=== PATIENT | male | born 1940 | race Caucasian/White ===

== ENCOUNTER 2017-05-14 08:22 | Inpatient (IN) | payer MEDICARE, OTHER ==
[~2017-05-14] VITALS: Ht 167.6 cm; Wt 94.9 kg
[2017-05-14] VITALS (9 sets, daily range): BP systolic 113–170; BP diastolic 57–96; PULSE 68–90; RESP 16–24; TEMP 97.4–98.7; O2SAT 96–99
[~2017-05-14 08:22] MED LIST: ASPI81TA82 PO; PLAV75TA PO
[2017-05-14] MEDS ORDERED: ASPI-516 CHEW (08:33)
[2017-05-14] MEDS ORDERED: ASPI-183 PO (08:40)
[2017-05-14] MEDS ORDERED: SODIUM CHLORIDE 0.9% FLUSH 10 ML FLUSH IVF PRN (09:00)
[2017-05-14] MEDS ORDERED: RESP: ALBUTEROL 2.5 MG/IPRATROPIUM 0.5 MG NEB (SCH) INH ONE (09:00)
--- NOTE | 2017-05-14 09:38 | RADRPT ---
EXAM DATE/TIME: 05/14/2017 09:06 [place] COMPARISON: CHEST SINGLE AP, September 26, 2014, 3:22. INDICATIONS : short of breath MEDICAL HISTORY : Chronic obstructive pulmonary disease. SURGICAL HISTORY : CABG. Coronary artery stent. ENCOUNTER: Initial ACUITY: 2 months PAIN SCORE: 0/10 LOCATION: Bilateral chest FINDINGS: A single portable frontal view the chest shows moderate cardiomegaly. No significant pulmonary vascul ar engorgement. Lungs are clear. Hiatal hernia noted. No effusions. Median sternotomy wires. CONCLUSION: Cardiomegaly. Clear lungs. Hiatal hernia. Burt Bojorquez Jr., MD on May 14, 2017 at 9:36 Board Certified Radiologist. This report was verified electronically.
[2017-05-14 09:58] LABS: AUTOMATED NEUTROPHIL # 5.3 TH/MM3 (1.8-7.7); BASOPHIL # 0.1 TH/MM3 (0-0.2); BASOPHIL % 1.1 % (0.0-2.0); EOSINOPHIL # 0.1 TH/MM3 (0-0.4); EOSINOPHIL % 1.3 % (0.0-4.0); LYMPH % 13.8 % (9.0-44.0); MEAN CELL VOLUME 56.9 FL (80.0-100.0); MEAN CORPUSCULAR HEMOGLOBIN 15.5 PG (27.0-34.0); MONO % 10.6 % (0.0-8.0); NEUT % 73.2 % (16.0-70.0); PLATELET COUNT 303 TH/MM3 (150-450); RED BLOOD COUNT 3.55 MIL/MM3 (4.50-5.90); RED CELL DISTRIBUTION WIDTH 20.4 % (11.6-17.2); WHITE BLOOD COUNT 7.3 TH/MM3 (4.0-11.0)
[2017-05-14 10:00] LABS: HEMO FLAGS DIFF FINAL; MEAN CORPUSCULAR HGB CONC 27.2 % (32.0-36.0)
[2017-05-14 10:02] LABS: HEMATOCRIT 20.2 % (39.0-51.0)
[2017-05-14] MEDS ORDERED: SODIUM CHLOR 0.9% 250 ML INJ 250 ML IV ONE (10:15)
[2017-05-14 10:24] LABS: ANION GAP 9 MEQ/L (5-15); AST (GOT) 20 U/L (15-37); BICARBONATE 24.1 MEQ/L (21.0-32.0); BLOOD UREA NITROGEN 22 MG/DL (7-18); CHLORIDE 108 MEQ/L (98-107); GLOMERULAR FILTRATION RATE 53 ML/MIN (>89); POTASSIUM 4.2 MEQ/L (3.5-5.1); SODIUM (NA) 141 MEQ/L (136-145)
[2017-05-14 10:29] LABS: ALKALINE PHOSPHATASE 68 U/L (45-117); ALT (GPT) 27 U/L (12-78); TOTAL BILIRUBIN ADULT 0.2 MG/DL (0.2-1.0)
--- NOTE | 2017-05-14 10:44 | PD ---
HPI Chief Complaint: Respiratory Distress Time Seen by Provider: 08:49 Travel History International Travel<30 days: No Contact w/Intl Traveler<30days: No Traveled to known affect area: No History of Present Illness HPI Patient is a 76-year-old male who comes in complaining of increasing shortness of breath. He says he has been shortness of breath. The past few weeks, but it has been getting worse. He does acknowledge that he has extensive cardiac history. He says he also has CHF and COPD. He denies any nausea or vomiting. He says he has noticed that his feet are swollen. He denies any chest pain. He has not had any abdominal pain or black stools. He says he only takes a full aspirin every day. PFSH Past Medical History Arthritis: Yes (generalized) Blood Disorders: No Anxiety: Yes Depression: Yes Heart Rhythm Problems: Yes Cancer: No Cardiac Catheterization: Yes Cardiovascular Problems: Yes High Cholesterol: Yes Chest Pain: Yes Congestive Heart Failure: Yes COPD: Yes Cerebrovascular Accident: Yes Diabetes: No Endocrine: No Gastrointestinal Disorders: Yes (irritable bowel dz) Genitourinary: Yes Headaches: Yes Hypertension: Yes Immune Disorder: No Musculoskeletal: Yes Neurologic: Yes Psychiatric: No Respiratory: Yes Myocardial Infarction: Yes Seizures: Yes Sleep Apnea: Yes Tetanus Vaccination: > 5 Years Influenza Vaccination: Yes Past Surgical History Abdominal Surgery: Yes (hernia repair) Cardiac Surgery: Yes (cabg 2002) Coronary Artery Bypass Graft: Yes Coronary Stent: Yes (X3) Eye Surgery: Yes (implants) Neurologic Surgery: Yes (R CEA) Oral Surgery: Yes (T&A) Other Surgery: Yes (CAROTIDS) Social History Alcohol Use: No (QUIT 40YRS AGO) Tobacco Use: No Substance Use: No Allergies-Medications (Allergen,Severity, Reaction): Coded Allergies: No Known Allergies (Verified Adverse Reaction, Unknown, 05/14/17) Reported Meds & Prescriptions Reported Meds & Active Scripts Active Reported Aspirin 325 Mg Tab 325 Mg PO DAILY Review of Systems Except as stated in HPI: all other systems reviewed are Neg General / Constitutional: No: Fever, Chills HENT: No: Headaches, Lightheadedness Cardiovascular: No: Chest Pain or Discomfort Respiratory: Positive: Cough, Shortness of Breath Gastrointestinal: No: Nausea, Vomiting Musculoskeletal: Positive: Edema, No: Myalgias Skin: No Rash, No Change in Pigmentation Neurologic: No: Weakness, Dizziness Physical Exam Narrative GENERAL: Awake and alert, in no acute distress. SKIN: Focused skin assessment warm/dry. HEAD: Atraumatic. Normocephalic. EYES: Pupils equal and round. No scleral icterus. ENT: Mucous membranes pink and moist. NECK: Trachea midline. No JVD. CARDIOVASCULAR: Regular rate and rhythm. No murmur appreciated. RESPIRATORY: No accessory muscle use. Clear to auscultation. Breath sounds equal bilaterally. GASTROINTESTINAL: Abdomen soft, non-tender, nondistended. Hepatic and splenic margins not palpable. MUSCULOSKELETAL: No obvious deformities. No clubbing. No cyanosis. Mild edema of bilateral ankles. NEUROLOGICAL: Awake and alert. No obvious cranial nerve deficits. Motor grossly within normal limits. Normal speech. PSYCHIATRIC: Appropriate mood and affect; insight and judgment normal. Data Data Last Documented VS Vital Signs Date Time Temp Pulse Resp B/P (MAP) Pulse Ox O2 Delivery O2 Flow Rate FiO2 05/14/17 10:30 68 20 113/57 (75) 99 Room Air 05/14/17 09:48 2.00 05/14/17 08:27 98.3 Orders Orders Complete Blood Count With Diff (05/14/17 08:49) Comprehensive Metabolic Panel (05/14/17 08:49) B-Type Natriuretic Peptide (05/14/17 08:49) Act Partial Throm Time (Ptt) (05/14/17 08:49) Prothrombin Time / Inr (Pt) (05/14/17 08:49) Troponin I (05/14/17 08:49) Iv Access Insert/Monitor (05/14/17 08:49) Electrocardiogram (05/14/17 08:49) Ecg Monitoring (05/14/17 08:49) Oximetry (05/14/17 08:49) Oxygen Administration (05/14/17 08:49) Chest, Single Ap (05/14/17 08:49) Sodium Chloride 0.9% Flush (Ns Flush) (05/14/17 09:00) Albuterol-Ipratropium Neb (Duoneb Neb) (05/14/17 09:00) Type And Screen (05/14/17 10:11) Red Blood Cells (Rbc) (05/14/17 10:11) Blood Product Administration (05/14/17 10:11) Sodium Chlor 0.9% 250 Ml Inj (Ns 250 Ml (05/14/17 10:15) Admit Order (Ed Use Only) (05/14/17 ) Labs Laboratory Tests Test 05/14/17 08:50 05/14/17 10:40 White Blood Count 7.3 TH/MM3 Red Blood Count 3.55 MIL/MM3 Hemoglobin 5.5 GM/DL Hematocrit 20.2 % Mean Corpuscular Volume 56.9 FL Mean Corpuscular Hemoglobin 15.5 PG Mean Corpuscular Hemoglobin Concent 27.2 % Red Cell Distribution Width 20.4 % Platelet Count 303 TH/MM3 Mean Platelet Volume 8.8 FL Neutrophils (%) (Auto) 73.2 % Lymphocytes (%) (Auto) 13.8 % Monocytes (%) (Auto) 10.6 % Eosinophils (%) (Auto) 1.3 % Basophils (%) (Auto) 1.1 % Neutrophils # (Auto) 5.3 TH/MM3 Lymphocytes # (Auto) 1.0 TH/MM3 Monocytes # (Auto) 0.8 TH/MM3 Eosinophils # (Auto) 0.1 TH/MM3 Basophils # (Auto) 0.1 TH/MM3 CBC Comment DIFF FINAL Differential Comment Blood Urea Nitrogen 22 MG/DL Creatinine 1.31 MG/DL Random Glucose 85 MG/DL Total Protein 6.8 GM/DL Albumin 3.2 GM/DL Calcium Level 8.3 MG/DL Alkaline Phosphatase 68 U/L Aspartate Amino Transf (AST/SGOT) 20 U/L Alanine Aminotransferase (ALT/SGPT) 27 U/L Total Bilirubin 0.2 MG/DL Sodium Level 141 MEQ/L Potassium Level 4.2 MEQ/L Chloride Level 108 MEQ/L Carbon Dioxide Level 24.1 MEQ/L Anion Gap 9 MEQ/L Estimat Glomerular Filtration Rate 53 ML/MIN Troponin I 0.13 NG/ML B-Type Natriuretic Peptide 815 PG/ML Prothrombin Time 10.9 SEC Prothromb Time International Ratio 1.0 RATIO Activated Partial Thromboplast Time 22.6 SEC [facility] Medical Decision Making Medical Screen Exam Complete: Yes Emergency Medical Condition: Yes Medical Record Reviewed: Yes Interpretation(s) ECG shows normal sinus rhythm at 71 there are T-wave inversions in 1 and aVL as well as leads V2 through V6. No ST elevation or depression. Differential Diagnosis CHF exacerbation versus COPD exacerbation versus pneumonia versus ACS Narrative Course Patient is a 76-year-old male comes in complaining of shortness of breath. Exam shows mild edema both ankles. IV established, labs sent. Labs show a hemoglobin of 5.5. Stool is negative for occult blood. Troponin is slightly elevated at 0.13. Type and screen sent, 2 units of PRBCs ordered for the patient. He was consented for blood transfusion. He does say that he had issues with anemia in the past, related to his heart surgery. He says he required a transfusion at that time. Patient will be admitted for further management. Diagnosis Primary Impression: Anemia Qualified Codes: D64.9 - Anemia, unspecified Additional Impression: CHF (congestive heart failure) Qualified Codes: I50.23 - Acute on chronic systolic (congestive) heart failure Admitting Information Admitting Physician Requests: Admit Minna Orourke MD May 14, 2017 10:44
[2017-05-14 11:17] LABS: APTT (PATIENT) 22.6 SEC (24.3-30.1); PROTHROMBIN TIME - PATIENT 10.9 SEC (9.8-11.6)
--- NOTE | 2017-05-14 11:31 | HHI.HP ---
HPI Service Family Medicine Primary Care Physician No Primary Care Physician Admission Diagnosis Anemia, CHF Diagnoses: International Travel<30 Days: No Contact w/Intl Traveler<30days: No Known Affected Area: No History of Present Illness Patient is a 76-year-old male with extensive cardiac history status post CABG and stent placements x3 presented to the ED with complaints of progressively worsening shortness of breath on exertion and fatigue. Patient states that shortness of breath on exertion has been occurring during the past year but has worsen in the past 2 days to the point where he is not able to walk short distances without stopping to catch his breath. Patient states he has bandlike chest pain across the rib cage radiating to the back. Describes back pain as stabbing quality. Of note patient states that this chest pain is similar to pain he experienced before he had stents placed. Denies radiation of pain into his left jaw or left arm. Patient also reports swelling in his lower extremities for the past 5 days. Denies weight loss, dizziness, vision changes, abdominal pain, nausea, vomiting, blood in his stool. Pt takes asa 325mg daily. Of note patient states last colonoscopy was 13 years ago and it was normal. He also stated that 13 years ago he was diagnosed with anemia (hgb 7.1) and required blood transfusion. The source of the bleeding was not identified. (Violette Gibbs MD, R1) Review of Systems Constitutional: COMPLAINS OF: Fatigue, DENIES: Fever, Weight loss, Chills, Dizziness Respiratory: COMPLAINS OF: Shortness of breath (on exertion), DENIES: Cough Cardiovascular: COMPLAINS OF: Chest pain (band-like) Gastrointestinal: DENIES: Black stools, Bloody stools, Nausea, Vomiting Genitourinary: COMPLAINS OF: Nocturia Musculoskeletal: COMPLAINS OF: Back pain (stabbing back pain) Integumentary: DENIES: Rash Neurologic: DENIES: Headache, Localized weakness, Seizures (Violette Gibbs MD , R1) Past Family Social History Past Medical History Anemia (hgb 7.1) requiring blood transfusion s/p CABG and stent placement x3, 13 yrs ago CHF COPD- does not use home O2 Past Surgical History Carotic endarterectomy 12 y ago lens implants (Violette Gibbs MD, R1) Allergies: Coded Allergies: No Known Allergies (Verified Allergy, Unknown, 05/14/17) Family History Mother-- at 81 yo due to stroke Father--colon cancer at 79 yo Brother--cardiac disease S/P open heart surgery 2 Social History Patient lives alone stopped working in August 2016 Sober the past 52 years Quit smoking 50 years ago Denies illicit drug use (Violette Gibbs MD, R1) Physical Exam Vital Signs Vital Signs Date Time Temp Pulse Resp B/P (MAP) Pulse Ox O2 Delivery O2 Flow Rate FiO2 05/14/17 10:30 68 20 113/57 (75) 99 Room Air 05/14/17 09:48 99 Nasal Cannula 2.00 05/14/17 08:37 90 24 134/60 (84) 99 Nasal Cannula 2.00 05/14/17 08:33 16 99 Nasal Cannula 2.00 05/14/17 08:27 98.3 84 16 170/96 (120) 99 Physical Exam GENERAL: This is a well-nourished, well-developed patient, in no apparent distress. SKIN: No rashes, ecchymoses or lesions. Cool and dry. HEAD: Atraumatic. Normocephalic. No temporal or scalp tenderness. EYES: Pupils equal round and reactive. Extraocular motions intact. No scleral icterus. No injection or drainage. ENT: Nose without bleeding, purulent drainage or septal hematoma. Throat without erythema, tonsillar hypertrophy or exudate. Uvula midline. Airway patent. NECK: Trachea midline. No lymphadenopathy. Supple, nontender, no meningeal signs. Pulsating area on right side of neck. CARDIOVASCULAR: Normal S1-S2 . Flow murmur heard on auscultation at left upper sternal border .Regular rate and rhythm without, gallops, or rubs. RESPIRATORY: Rales heard at lower lung bases BL. GASTROINTESTINAL: Abdomen soft, non-tender, distended. No hepato-splenomegaly, or palpable masses. No guarding. MUSCULOSKELETAL: Extremities without clubbing, cyanosis, or edema. No joint tenderness, effusion, or edema noted. No calf tenderness. Negative Homans sign bilaterally. NEUROLOGICAL: Awake and alert. Cranial nerves II through XII intact. Motor and sensory grossly within normal limits. Five out of 5 muscle strength in all muscle groups. Normal speech. Laboratory Laboratory Tests Test 05/14/17 08:50 05/14/17 10:40 White Blood Count 7.3 Red Blood Count 3.55 Hemoglobin 5.5 Hematocrit 20.2 Mean Corpuscular Volume 56.9 Mean Corpuscular Hemoglobin 15.5 Mean Corpuscular Hemoglobin Concent 27.2 Red Cell Distribution Width 20.4 Platelet Count 303 Mean Platelet Volume 8.8 Neutrophils (%) (Auto) 73.2 Lymphocytes (%) (Auto) 13.8 Monocytes (%) (Auto) 10.6 Eosinophils (%) (Auto) 1.3 Basophils (%) (Auto) 1.1 Neutrophils # (Auto) 5.3 Lymphocytes # (Auto) 1.0 Monocytes # (Auto) 0.8 Eosinophils # (Auto) 0.1 Basophils # (Auto) 0.1 CBC Comment DIFF FINAL Differential Comment Blood Urea Nitrogen 22 Creatinine 1.31 Random Glucose 85 Total Protein 6.8 Albumin 3.2 Calcium Level 8.3 Alkaline Phosphatase 68 Aspartate Amino Transf (AST/SGOT) 20 Alanine Aminotransferase (ALT/SGPT) 27 Total Bilirubin 0.2 Sodium Level 141 Potassium Level 4.2 Chloride Level 108 Carbon Dioxide Level 24.1 Anion Gap 9 Estimat Glomerular Filtration Rate 53 Troponin I 0.13 B-Type Natriuretic Peptide 815 Prothrombin Time 10.9 Prothromb Time International Ratio 1.0 Activated Partial Thromboplast Time 22.6 (Violette Gibbs MD, R1) Result Diagram: 05/14/17 0850 05/14/17 0850 Imaging Last Impressions Neck Ultrasound 05/14/17 1346 Signed Impressions: Service Date/Time: April 14:05 - CONCLUSION: 1. Palpable abnormality corresponds to prominent venous structures at the junction of the internal and subclavian veins in the right neck. 2. No mass lesions. Bandar Smith MD Chest X-Ray 05/14/17 0849 Signed Impressions: Service Date/Time: April 09:06 - CONCLUSION: Cardiomegaly. Clear lungs. Hiatal hernia. Burt Bojorquez Jr., MD Abdomen Ultrasound 05/14/17 0000 Signed Impressions: Service Date/Time: April 13:48 - CONCLUSION: 1. 6 x 8 mm nonobstructing stone in the lower pole collecting system of the right kidney. 2. Simple cortical cyst laterally in the midpole of the left kidney. 3. Pancreas is partially obscured by overlying bowel gas. Visualized portions are sonographically intact. 4. Otherwise negative. Bandar Smith MD (Violette Gibbs MD, R1) Caprini VTE Risk Assessment Caprini VTE Risk Assessment: Mod/High Risk (score >= 2) Caprini Risk Assessment Model Point Value = 1 Point Value = 2 Point Value = 3 Point Value = 5 Age 41-60 Minor surgery BMI > 25 kg/m2 Swollen legs Varicose veins or History of unexplained or recurrent spontaneous Oral contraceptives or hormone replacement Sepsis (< 1 month) Serious lung disease, including pneumonia (< 1 month) Abnormal pulmonary function Acute myocardial infarction Congestive heart failure (< 1 month) History of inflammatory bowel disease Medical patient at bed rest Age 61-74 Arthroscopic surgery Major open surgery (> 45 min) Laparoscopic surgery (> 45 min) Malignancy Confined to bed (> 72 hours) Immobilizing plaster cast Central venous access Age >= 75 History of VTE Family history of VTE Factor V Leiden Prothrombin [id number] Lupus anticoagulant Anticardiolipin antibodies Elevated serum homocysteine Heparin-induced thrombocytopenia Other congenital or acquired thrombophilia Stroke (< 1 month) Elective arthroplasty Hip, pelvis, or leg fracture Acute spinal cord injury (< 1 month) Prophylaxis Regimen Total Risk Factor Score Risk Level Prophylaxis Regimen 0-1 Low Early ambulation 2 Moderate Order ONE of the following: *Sequential Compression Device (SCD) *Heparin 5000 units SQ BID 3-4 Higher Order ONE of the following medications: *Heparin 5000 units SQ TID *Enoxaparin/Lovenox 40 mg SQ daily (WT < 150 kg, CrCl > 30 mL/min) *Enoxaparin/Lovenox 30 mg SQ daily (WT < 150 kg, CrCl > 10-29 mL/min) *Enoxaparin/Lovenox 30 mg SQ BID (WT < 150 kg, CrCl > 30 mL/min) AND/OR *Sequential Compression Device (SCD) 5 or more Highest Order ONE of the following medications: *Heparin 5000 units SQ TID (Preferred with Epidurals) *Enoxaparin/Lovenox 40 mg SQ daily (WT < 150 kg, CrCl > 30 mL/min) *Enoxaparin/Lovenox 30 mg SQ daily (WT < 150 kg, CrCl > 10-29 mL/min) *Enoxaparin/Lovenox 30 mg SQ BID (WT < 150 kg, CrCl > 30 mL/min) AND *Sequential Compression Device (SCD) (Violette Gibbs MD, R1) Assessment and Plan Assessment and Plan 76 yo M with extensive cardiac hx s/p CABG and stent placement admitted for w/u of symptomatic anemia. Code Status Full code Discussed Condition With sdw Dr. Murguia and Dr. Webb (Violette Gibbs MD, R1) Attending Attestation THIS CASE WAS DISCUSSED WITH THE RESIDENT PHYSICIANS. I HAVE REVIEWED THE RECORD AND AGREE WITH THE ABOVE NOTE AND PLAN OF CARE WAS DISCUSSED. I HAVE AUTHORIZED THE ORDER FOR ADMISSION TO AN IN-PATIENT STATUS. I was present for the entire history and physical and agree with the above assessment and plan. At this time it appears the EKG changes and symptoms are cardiac in nature but likely secondary to the severe anemia. (Talisha Murguia MD) Problem List: (1) Symptomatic anemia ICD Codes: D64.9 - Anemia, unspecified Status: Acute Plan: -Flow murmur heard on cardiac exam. -H&H on admission found to 5.5/20.2 -2 units of PRBC ordered for transfusion -Monitor H&H posttransfusion -Follow-up a.m. labs -GI consulted, recommendations appreciated (2) CAD (coronary artery disease) ICD Codes: I25.10 - Atherosclerotic heart disease of [place] coronary artery without angina pectoris Status: Chronic Plan: -EKG on admission showed: inverted t-waves, in lateral lead suggestive of ischemia and ST depression in leads V4-V6, these changes differ from previous EKG done in 09/2014 - CXR showed : cardiomegaly, clear lung and hiatal hernia -f/u echo, neck u/s for Right pulsatile neck veins?, abdominal u/s for abdominal distension, d-dimer, EKG -f/u cardiac cardiac enzymes and troponins -c/w asa -morphine prn for chest pain -monitor vs -patient not placed on beta-blockers due to hypotension. Not placed on heparin due to concern for bleeding. -case discussed with cardiology and consult not necessary at this time (3) Nutrition, metabolism, and development symptoms ICD Codes: R63.8 - Other symptoms and signs concerning food and fluid intake Plan: Fluids: not indicated at this time Electrolytes: WNL, replete as needed Nutrition: NPO after midnight DVT ppx: SCDs (Violette Gibbs MD, R1) Physician Certification 2 Midnight Certification Type: Admission for Inpatient Services Order for Inpatient Services The services are ordered in accordance with Medicare regulations or non- Medicare payer requirements, as applicable. In the case of services not specified as inpatient-only, they are appropriately provided as inpatient services in accordance with the 2-midnight benchmark. Estimated LOS (days): 3 days is the estimated time the patient will need to remain in the hospital, assuming treatment plan goals are met and no additional complications. Post-Hospital Plan: Not yet determined (Violette Gibbs MD, R1) Violette Gibbs MD, R1 May 14, 2017 11:31 Talisha Murguia MD May 15, 2017 08:21
[2017-05-14] MEDS ORDERED: MORPHINE SULFATE 4 MG/ML INJ IV PUSH PRN (12:30)
[2017-05-14] MEDS ORDERED: MAGNESIUM HYDROXIDE SUSP 30 ML CUP PO PRN (12:30)
[2017-05-14] MEDS ORDERED: ONDANSETRON HCL 4 MG/2 ML VIAL IVP PRN (12:30)
[2017-05-14] MEDS ORDERED: BISACODYL 10 MG SUPP RECTAL PRN (12:30)
[2017-05-14] MEDS ORDERED: LACTULOSE SYRUP 20 GM/30 ML CUP PO PRN (12:30)
[2017-05-14] MEDS ORDERED: SODIUM CHLORIDE 0.9% FLUSH 10 ML FLUSH IV FLUSH PRN (12:30)
[2017-05-14] MEDS ORDERED: NALOXONE HCL 0.4 MG/ML AMP IV PUSH PRN (12:30)
[2017-05-14] MEDS ORDERED: ACETAMINOPHEN 325 MG TAB PO PRN (12:30)
[2017-05-14] MEDS ORDERED: SENNOSIDES 8.6 MG TAB PO PRN (12:30)
--- NOTE | 2017-05-14 14:33 | PD.CONS ---
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 GI has been consulted for anemia, hgb 5.5 on admission. Denies black tarry stool, red blood in stool, n/v, abd pain, unintended weight loss. Takes daily ASA. No other NSAIDs. Not on blood thinners. 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 He had EGD and colonoscopy 13 y ago in [facility] for bleeding but says no source found. He said about 11y ago the ND told him he was anemic but did not determine source. 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 "I hold the record for years of sobriety in [facility]." (Evelyn De La O) PFSH Past Medical History CHF COPD anemia Marinelli's Past Surgical History CABG 13 y ago stent placement- 2014 hernia repair abdomen T&A Carotic endarterectomy 12 y ago lens implants (Evelyn De La O) Coded Allergies: No Known Allergies (Verified Allergy, Unknown, 05/14/17) Family History ?colon ca - father CVD CVA Social History no ETOH - quit 52 y ago no tobacco- quit 50 y ago no illicit drug use (Evelyn De La O) Review of Systems Constitutional: COMPLAINS OF: Dizziness Eyes: DENIES: Blurred vision Ears, nose, mouth, throat: DENIES: Hearing loss Respiratory: DENIES: Hemoptysis Cardiovascular: DENIES: Palpitations Gastrointestinal: DENIES: Abdominal pain, Black stools, Bloody stools, Constipation, Diarrhea, Nausea, Vomiting, Hematemesis Musculoskeletal: DENIES: Joint Swelling Integumentary: DENIES: Jaundice Hematologic/lymphatic: DENIES: Bruising Neurologic: DENIES: Headache Psychiatric: DENIES: Confusion (Evelyn De La O) GI Exam Vitals I&O Vital Signs Date Time Temp Pulse Resp B/P (MAP) Pulse Ox O2 Delivery O2 Flow Rate FiO2 05/14/17 13:41 05/14/17 13:02 98.7 78 18 136/70 99 05/14/17 12:42 98.2 72 18 127/61 98 05/14/17 12:33 69 20 127/61 (83) Room Air 05/14/17 10:30 68 20 113/57 (75) 99 Room Air 05/14/17 09:48 99 Nasal Cannula 2.00 05/14/17 08:37 90 24 134/60 (84) 99 Nasal Cannula 2.00 05/14/17 08:33 16 99 Nasal Cannula 2.00 05/14/17 08:27 98.3 84 16 170/96 (120) 99 I/O 05/13/17 05/13/17 05/13/17 05/14/17 05/14/17 05/14/17 07:00 15:00 23:00 07:00 15:00 23:00 Intake Total 250 ml Balance 250 ml Intake Blood Product IV Normal Saline Flush 250 ml Imaging Last Impressions Chest X-Ray 05/14/17 0849 Signed Impressions: Service Date/Time: April 09:06 - CONCLUSION: Cardiomegaly. Clear lungs. Hiatal hernia. Burt Bojorquez Jr., MD Laboratory Test 05/14/17 08:50 05/14/17 10:40 05/14/17 12:25 White Blood Count 7.3 TH/MM3 Red Blood Count 3.55 MIL/MM3 Hemoglobin 5.5 GM/DL Hematocrit 20.2 % Mean Corpuscular Volume 56.9 FL Mean Corpuscular Hemoglobin 15.5 PG Mean Corpuscular Hemoglobin Concent 27.2 % Red Cell Distribution Width 20.4 % Platelet Count 303 TH/MM3 Mean Platelet Volume 8.8 FL Neutrophils (%) (Auto) 73.2 % Lymphocytes (%) (Auto) 13.8 % Monocytes (%) (Auto) 10.6 % Eosinophils (%) (Auto) 1.3 % Basophils (%) (Auto) 1.1 % Neutrophils # (Auto) 5.3 TH/MM3 Lymphocytes # (Auto) 1.0 TH/MM3 Monocytes # (Auto) 0.8 TH/MM3 Eosinophils # (Auto) 0.1 TH/MM3 Basophils # (Auto) 0.1 TH/MM3 CBC Comment DIFF FINAL Differential Comment Blood Urea Nitrogen 22 MG/DL Creatinine 1.31 MG/DL Random Glucose 85 MG/DL Total Protein 6.8 GM/DL Albumin 3.2 GM/DL Calcium Level 8.3 MG/DL Alkaline Phosphatase 68 U/L Aspartate Amino Transf (AST/SGOT) 20 U/L Alanine Aminotransferase (ALT/SGPT) 27 U/L Total Bilirubin 0.2 MG/DL Sodium Level 141 MEQ/L Potassium Level 4.2 MEQ/L Chloride Level 108 MEQ/L Carbon Dioxide Level 24.1 MEQ/L Anion Gap 9 MEQ/L Estimat Glomerular Filtration Rate 53 ML/MIN Troponin I 0.13 NG/ML 0.13 NG/ML B-Type Natriuretic Peptide 815 PG/ML Prothrombin Time 10.9 SEC Prothromb Time International Ratio 1.0 RATIO Activated Partial Thromboplast Time 22.6 SEC D-Dimer Quantitative (PE/DVT) 0.48 MG/L FEU Total Creatine Kinase 41 U/L Physical Examination HEENT: PERRL; normocephalic; atraumatic; no jaundice. CHEST: CTA CARDIAC: RRR + murmur ABDOMEN: Soft, protuberant, nontender; no hepatosplenomegaly; bowel sounds are present in all four quadrants. EXTREMITIES: No clubbing, cyanosis, +1 pitting edema SKIN: Normal; no rash; no jaundice. [employer]: No focal deficits; alert and oriented times three. (Evelyn De La O) Assessment and Plan Plan ASSESSMENT - anemia - hgb 5.5 on admission, microcytic hypochromic. stool occult neg. no signs GI bleeding. 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 Colonoscopy 12 y ago in [facility] as work up for anemia and no bleeding found. will need EGD/colonoscopy, poss capsule endoscopy cleared by cardiology - elev troponins, CHF, COPD - cardiology consulted PLAN - EGD and colonoscopy - obtain consent - clears - NPO after midnight - GoLYtely - may need capsule endoscopy - monitor labs - transfuse as necessary - supportive care THis pt seen by myself and Dr Das and this note is written on his behalf (Evelyn De La O) Physician Comments Patient seen and examined Agree with above Continue with current supportive care Monitor labs Plan for an EGD and a colonoscopy tomorrow and if negative patient will require small bowel follow-through and capsule endoscopy (Humza Das MD) Evelyn De La O May 14, 2017 14:33 Humza Das MD May 14, 2017 23:23
--- NOTE | 2017-05-14 15:08 | RADRPT ---
EXAM DATE/TIME: 05/14/2017 13:48 [facility] COMPARISON: No previous studies available for comparison. INDICATIONS : Abdominal distention. MEDICAL HISTORY : Chronic obstructive pulmonary disease. Myocardial infarction. Hypercholesterolemia. Seizures. Syncope . Congestive heart failure. SURGICAL HISTORY : Tonsillectomy. Neurologic surgery. CABG. Cardiac catheterization. Coronary stent. Hernia repair. Carotid surgery. ENCOUNTER: Initial ACUITY: 1 day PAIN SCORE: 2/10 LOCATION: Abdomen. MEASUREMENTS: LIVER: 19.3 cm length COMMON DUCT: 9 mm RIGHT KIDNEY: 10.2 x 5.4 x 5.3 cm LEFT KIDNEY: 10.4 x 6.1 x 6.2 cm SPLEEN: 11.1 cm length AORTA: 2.7cm maximal FINDINGS: LIVER: Normal echotexture without focal lesion or ductal dilatation. COMMON DUCT: No intraluminal mass or stone visualized. GALLBLADDER: Contains no stones, demonstrates no wall thickening or pericholecystic fluid. PANCREAS: Partially obscured by overlying bowel gas. RIGHT KIDNEY: 6 x 5 x 8 mm nonobstructing stone in the lower pole of the right kidney. No hydronephrosis. LEFT KIDNEY: No hydronephrosis, stone or mass. 2 cm benign cyst in the lateral midpole. SPLEEN: No focal lesion. AORTA: Non aneurysmal. IVC: Within normal limits. CONCLUSION: 1. 6 x 8 mm nonobstructing stone in the lower pole collecting system of the right kidney. 2. Simple cortical cyst laterally in the midpole of the left kidney. 3. Pancreas is partially obscured by overlying bowel gas. Visualized portions are sonographically int act. 4. Otherwise negative. Bandar Smith MD on May 14, 2017 at 15:02 Board Certified Radiologist. This report was verified electronically.
[2017-05-14] MEDS ORDERED: PEG (High)/E-LYTE SOLN 4000 ML BTL PO ONE (15:45)
--- NOTE | 2017-05-14 16:21 | RADRPT ---
EXAM DATE/TIME: 05/14/2017 14:05 [facility] COMPARISON: No previous studies available for comparison. INDICATIONS : Palpable mass, right neck. MEDICAL HISTORY : Chronic obstructive pulmonary disease. Myocardial infarction. Hypercholesterolemia. Seizures. Syncope . Congestive heart failure. SURGICAL HISTORY : Neurologic surgery. CABG. Cardiac catheterization. Coronary stent. Hernia repair. Carotid surgery. ENCOUNTER: Initial ACUITY: 1 day PAIN SCORE: 2/10 LOCATION: Right neck AREA EVALUATED: Right neck. FINDINGS: MASSES: None. Palpable abnormality appears to correspond to a prominent jugular vein near the subclav vidal. FLUID COLLECTIONS: None. OTHER: Negative. CONCLUSION: 1. Palpable abnormality corresponds to prominent venous structures at the junction of the internal an d subclavian veins in the right neck. 2. No mass lesions. Bandar Smith MD on May 14, 2017 at 16:18 Board Certified Radiologist. This report was verified electronically.
[2017-05-14] MEDS: SODIUM CHLORIDE 0.9% FLUSH 10 ML FLUSH IV FLUSH SCH (20:27)
[2017-05-14] MEDS: DOCUSATE SODIUM 50 MG/SENNA 8.6 MG TAB PO SCH (20:27)
[2017-05-15] VITALS (13 sets, daily range): BP systolic 121–149; BP diastolic 60–78; PULSE 64–80; RESP 14–23; TEMP 97.5–98.3; O2SAT 94–99
[2017-05-15] MEDS: RESP: ALBUTEROL 2.5 MG/IPRATROPIUM 0.5 MG NEB (SCH) INH ×5 (02:00→21:06)
[2017-05-15 02:26] LABS: HEMATOCRIT 24.6 % (39.0-51.0)
[2017-05-15 02:30] LABS: REVIEW FLAG FINAL
[2017-05-15 02:45] LABS: POTASSIUM 4.1 MEQ/L (3.5-5.1)
[2017-05-15] MEDS ORDERED: FUROSEMIDE 40 MG TAB PO ONE (03:30)
--- NOTE | 2017-05-15 03:59 | HHI.PR ---
Addendum to Inpatient Note Addendum Reason: Additional Documentation Additional Information Subjective Went to evaluate patient after RN call about SOB. Patient resting comfortably in bed, feels a little short of breath, about the same as admission per patient. Denies chest pain, denies other new symptoms. Objective Vital Signs Date Time Temp Pulse Resp B/P (MAP) Pulse Ox O2 Delivery O2 Flow Rate FiO2 05/15/17 03:43 76 05/15/17 00:00 97.7 21 121/66 (84) 95 05/14/17 20:00 Room Air 05/14/17 09:48 2.00 Physical Exam Gen: WDWN overweight adult white male sitting up in bed appearing short of breath but not acutely distressed Lungs: Moderate bibasilar wet crackles. Mild wheezing anteriorly. CV: NRRR, normal s1/S2, no murmur Abd: Soft, mildly distended, nontender MSK: No edema A/P SOB likely related to symptomatic anemia. S/p 2 units of blood, H/H came up appropriately. With cardiac history and lung exam, could be a little fluid overloaded after the 2 units. - Lasix 40 mg IV x1 - Transfuse 1 more unit PRBC - Continue DuoNebs Q6H PRN SOB - Repeat H/H after the additional unit of blood sdw Romeo Crowell MD R2 May 15, 2017 03:58
[2017-05-15] MEDS ORDERED: SODIUM CHLORID 0.9% 500 ML IV PRN (05:15)
[2017-05-15] MEDS ORDERED: POVIDONE IODINE 5% (ANTISEPSIS KIT) 4 APPLICATIONS EACH NARE PRN (05:15)
[2017-05-15] MEDS ORDERED: LACTATED RINGER'S 1000 ML IV PRN (05:15)
[2017-05-15] MEDS ORDERED: CHLORHEXIDINE GLUCONATE 2 % 1 PACK (2 CLOTHS) TOPICAL PRN (05:15)
[2017-05-15] MEDS ORDERED: METOPROLOL TARTRATE 25 MG TAB PO PRN (05:15)
[2017-05-15] MEDS: SODIUM CHLORIDE 0.9% FLUSH 10 ML FLUSH IV FLUSH SCH ×2 (09:00→21:06)
[2017-05-15] MEDS: DOCUSATE SODIUM 50 MG/SENNA 8.6 MG TAB PO SCH ×2 (09:00→21:00)
[2017-05-15] MEDS: ASPIRIN 325 MG TAB PO SCH (09:00)
[2017-05-15] MEDS ORDERED: INFLUENZA VIRUS VACCINE (QUADRIVALENT) 0.5 ML SYR IM ONE (10:00)
--- NOTE | 2017-05-15 10:45 | ECHRPT ---
Indication: SOB CONCLUSIONS Mildly dilated left ventricle. Wall thickness is normal. The left ventricular systolic function is severely reduced with an estimated ejection fraction in th e range of 20-25%. The basal posterior and basal lateral abarca appear to contract normally; all other segments are moderately to severely hypokinetic. Mild aortic valve sclerosis is present. Trace aortic valve regurgitation. There is moderate tricuspid valve regurgitation. The estimated pulmonary arterial pressure is 53 mmHg. Mild mitral valve regurgitation. BP: 149 / 78 HR: 70 Rhythm: MEASUREMENTS (Male / Female) Normal Values Technical Quality:Good 2D ECHO LV Diastolic Diameter PLAX 5.7 cm 4.2 - 5.9 / 3.9 - 5.3 cm LV Systolic Diameter PLAX 5.1 cm IVS Diastolic Thickness 0.9 cm 0.6 - 1.0 / 0.6 - 0.9 cm LVPW Diastolic Thickness 0.7 cm 0.6 - 1.0 / 0.6 - 0.9 cm LV Relative Wall Thickness 0.3 RV Internal Dim ED PLAX 2.1 cm LA Systolic Diameter LX 4.4 cm 3.0 - 4.0 / 2.7 - 3.8 cm M-MODE Aortic Root Diameter MM 3.1 cm AV Cusp Separation MM 2.3 cm DOPPLER AV Peak Velocity 238.0 cm/s AV Peak Gradient 22.7 mmHg AV Mean Gradient 12.0 mmHg AV Velocity Time Integral 54.4 cm LVOT Peak Velocity 138.0 cm/s LVOT Peak Gradient 7.6 mmHg LVOT Velocity Time Integral 32.3 cm Mitral E Point Velocity 122.0 cm/s Mitral A Point Velocity 147.0 cm/s Mitral E to A Ratio 0.8 TR Peak Velocity 347.0 cm/s TR Peak Gradient 48.2 mmHg FINDINGS LEFT VENTRICLE Mildly dilated left ventricle. Wall thickness is normal. The left ventricular systolic function is severely reduced with an estimated ejection fraction in th e range of 20-25%. The basal posterior and basal lateral abarca appear to contract normally; all other segments are moderately to severely hypokinetic. RIGHT VENTRICLE Normal right ventricular size and systolic function. LEFT ATRIUM The left atrial size is normal. RIGHT ATRIUM The right atrial size is normal. ATRIAL SEPTUM Normal atrial septal thickness without atrial level shunting by limited color doppler interrogation. AORTA The aortic root and proximal ascending aorta are normal in size on limited imaging. MITRAL VALVE Mild mitral valve regurgitation. AORTIC VALVE Mild aortic valve sclerosis is present. Trace aortic valve regurgitation. TRICUSPID VALVE There is moderate tricuspid valve regurgitation. The estimated pulmonary arterial pressure is 53 mmHg. PULMONARY VALVE The pulmonary valve is not well visualized. VESSELS The inferior vena cava is normal in size. PERICARDIUM No pericardial effusion. Zach Devi MD (Electronically Signed) Final Date:15 May 2017 10:44
[2017-05-15] MEDS ORDERED: FUROSEMIDE 20 MG TAB PO ONE (11:15)
--- NOTE | 2017-05-15 11:27 | HHI.FPPN ---
Subjective Remarks Patient seen and examined at bedside. Overnight pt developed SOB after transfusion of of 2 units of RPBC. Patient was evaluated by the resident team overnight. He was given lasix 40mg x1 and duonebs. Patient schedule to have EGD and colonoscopy today. Patient states he still feels short of breath with minimal exertion, for example walking to the bathroom. His breathing is ok if he is siting in bed. Denies blood in his stool. (Violette Gibbs MD, R1) Objective Vitals Vital Signs Date Time Temp Pulse Resp B/P (MAP) Pulse Ox O2 Delivery O2 Flow Rate FiO2 05/15/17 08:55 99 21 05/15/17 08:00 97.5 76 14 146/76 (99) 94 05/15/17 07:40 Room Air 05/15/17 05:52 97.8 20 144/72 95 05/15/17 05:37 97.8 70 20 149/78 94 05/15/17 05:11 97.6 70 22 138/73 94 05/15/17 04:00 97.9 71 23 131/74 (93) 95 05/15/17 03:43 76 05/15/17 00:00 97.7 64 21 121/66 (84) 95 05/14/17 22:09 97 05/14/17 20:00 97.4 84 21 154/84 (107) 96 05/14/17 20:00 Room Air 05/14/17 16:00 97.5 68 20 118/61 (80) 96 05/14/17 13:41 05/14/17 13:02 98.7 78 18 136/70 99 05/14/17 12:42 98.2 72 18 127/61 98 05/14/17 12:33 69 20 127/61 (83) Room Air I/O 05/14/17 05/14/17 05/14/17 05/15/17 05/15/17 05/15/17 07:00 15:00 23:00 07:00 15:00 23:00 Intake Total 250 ml 800 ml 0 ml 400 ml Output Total 650 ml Balance 250 ml 800 ml -650 ml 400 ml Intake Oral 0 ml Packed Cells 800 ml 400 ml Blood Product IV Normal Saline Flush 250 ml Output Urine Total 650 ml # Bowel Movements 4 (Violette Gibbs MD, R1) Result Diagram: 05/15/1720405/15/17204 Objective Remarks GENERAL: This is a well-nourished, well-developed patient, in no apparent distress siting in bed SKIN: No rashes, ecchymoses or lesions. Cool and dry. HEAD: Atraumatic. Normocephalic. No temporal or scalp tenderness. EYES: Pupils equal round and reactive. Extraocular motions intact. No scleral icterus. No injection or drainage. ENT: Nose without bleeding, purulent drainage or septal hematoma. Throat without erythema, tonsillar hypertrophy or exudate. Uvula midline. Airway patent. NECK: Trachea midline. No lymphadenopathy. Supple, nontender, no meningeal signs. Pulsating area on right side of neck. CARDIOVASCULAR: Normal S1-S2 . Flow murmur heard on auscultation at left upper sternal border .Regular rate and rhythm without, gallops, or rubs. RESPIRATORY: Rales heard at lower lung bases BL. Mild wheezing noted, most prominent on right upper lobe. GASTROINTESTINAL: Abdomen soft, non-tender, distended. No hepato-splenomegaly, or palpable masses. No guarding. MUSCULOSKELETAL: Extremities without clubbing, cyanosis, or edema. No joint tenderness, effusion, or edema noted. No calf tenderness. Negative Homans sign bilaterally. NEUROLOGICAL: Awake and alert. Cranial nerves II through XII intact. Motor and sensory grossly within normal limits. Five out of 5 muscle strength in all muscle groups. Normal speech. (Violette Gibbs MD, R1) A/P Assessment and Plan 76 yo M with extensive cardiac hx s/p CABG and stent placement admitted for w/u of symptomatic anemia. sdw Dr. Murguia (Violette Gibbs MD, R1) Attending Attestation Patient seen and examined. Case reviewed and discussed with the resident team. Agree with plan of care as discussed with me and documented in the resident note. (Talisha Murguia MD) Problem List: (1) Symptomatic anemia ICD Codes: D64.9 - Anemia, unspecified Status: Acute Plan: -Flow murmur heard on cardiac exam. -H&H on admission found to 5.5/20.2 -S/p 2 units of PRBCs H/H increased appropriately to 7.4/24.6, -Patient received 1 additional unit of PRBCs overnight, total: s/p 3 units of PRBCs -Monitor H&H posttransfusion -monitor vs and consider transfusing if hgb <8 -Follow-up a.m. labs -GI following -patient scheduled to have EGD and colonoscopy procedure today -will f/u results and GI recommendations (2) CAD (coronary artery disease) ICD Codes: I25.10 - Atherosclerotic heart disease of [place] coronary artery without angina pectoris Status: Chronic Plan: -EKG on admission showed: inverted t-waves, in lateral lead suggestive of ischemia and ST depression in leads V4-V6, these changes differ from previous EKG done in 09/2014 - CXR showed : cardiomegaly, clear lung and hiatal hernia -Echo on 05/15: EF- 20-25%, Mildly dilated left ventricle, Mild aortic valve sclerosis and trace aortic valve regurgitation. -neck u/s: no masses, prominent venous structures at junction of internal and subclavian Right vein. abdominal u/s for abdominal distension showed: cyst Left kidney, and nonobstructing stone in lower pole of Right kidney. -cardiac cardiac enzymes and troponins remained stable -bnp- 1383, d-dimer-WNL, -c/w asa -morphine prn for chest pain -monitor vs -patient not placed on beta-blockers due to hypotension. Not placed on heparin due to concern for bleeding. -case discussed with cardiology on admission and consult not necessary at this time (3) Shortness of breath ICD Codes: R06.02 - Shortness of breath Status: Resolved Plan: Increased sob most likely due to anemia and exacerbated by blood transfusions. -c/w duoneb Q6H PRN breathing treatment -Pt received lasix 40mg x1 overnight for sxs sob after transfusion of 2 units of PRBCs -CXR on 05/14 showed : cardiomegaly, clear lung and hiatal hernia -will order incentive spirometry -lasix 20mg x1 given this morning, 05/15 -f/u bnp tomorrow am (4) Nutrition, metabolism, and development symptoms ICD Codes: R63.8 - Other symptoms and signs concerning food and fluid intake Plan: Fluids: not indicated at this time Electrolytes: WNL, replete as needed Nutrition: clear liquid diet after GI procedures DVT ppx: SCDs (Violette Gibbs MD, R1) Violette Gibbs MD, R1 May 15, 2017 11:27 Talisha Murguia MD May 17, 2017 07:24
[2017-05-15] MEDS ORDERED: ePHEDrine/NS 25 MG/5 ML SYR IV ONE (12:00)
[2017-05-15] MEDS ORDERED: PROPOFOL 200 MG/20 ML AMP IV ONE (12:00)
[2017-05-15] MEDS ORDERED: MAGNESIUM CITRATE SOLN 300 ML BTL PO ONE ×2 (12:00→18:00)
[2017-05-15] MEDS ORDERED: *RESP: ALBUTEROL 2.5 MG/3 ML NEB (PRN) PERIprocedural Use ONLY NEB ONE (14:47)
--- NOTE | 2017-05-15 15:12 | PD.PROCEDR ---
GI Procedure REFERRING PHYSICIAN MELANY PROCEDURE PERFORMED EGD with biopsy followed by colonoscopy INDICATION FOR PROCEDURE Anemia PROCEDURE: The procedure, risks and benefits were discussed with Mr. Ibarra and informed consent was obtained. Anesthesia sedated him with Diprivan. He was placed in the left lateral decubitus position. EGD: The Pentax videoscope was introduced through the oropharynx and advanced to the second portion of the duodenum under direct visualization. Retroflexion was performed in the stomach. FINDINGS: Esophagus this appeared to be unremarkable with normal limits The stomach there was a moderate size hiatal hernia there was some erythema at the level of the diaphragm indicating possible ischemic changes to the gastric mucosa may be also some superficial erosions nothing obvious though no blood or bleeding no ulcers biopsies were taken from this level the rest of the stomach was unremarkable The duodenum this was normal random biopsies were taken for further evaluation Colonoscopy: The Pentax videoscope was introduced through the rectum and advanced to cecum where the ileocecal valve and appendiceal orifice were identified. Retroflexion was performed in the rectum. Colonic prep was good FINDINGS: Colonic withdrawal time greater than 6 minutes as the scope was slowly withdrawn colonic mucosa was carefully inspected this was noted to be unremarkable and within normal limits all the way through retroflexion did reveal moderate size internal hemorrhoids rectal examination otherwise unremarkable ESTIMATED BLOOD LOSS: None SPECIMENS REMOVED: Gastric biopsy and duodenal biopsy COMPLICATIONS: None IMPRESSION: Hiatal hernia Gastritis Internal hemorrhoids PLAN: Await biopsy PPI Small bowel follow-through Outpatient capsule endoscopy Supportive care Humza Das MD May 15, 2017 15:12
[2017-05-15] MEDS ORDERED: DO NOT ADM ANY ANTICOAGULANT DRUGS PRN (15:30)
[2017-05-15 16:30] LABS: HEMATOCRIT 30.2 % (39.0-51.0)
[2017-05-15] MEDS: BISACODYL EC 5 MG TABEC PO SCH ×2 (18:00→21:00)
--- NOTE | 2017-05-15 18:37 | EKG ---
Date Performed: 05/14/2017 Time Performed: 08:51:47 PTAGE: 76 years EKG: Sinus rhythm INFERIOR MYOCARDIAL INFARCTION ST DEVIATION AND MODERATE T-WAVE ABNORMALITY, CONSIDER ANTEROLATERAL ISCHEMIA ABNORMAL ECG Compared to PREVIOUS TRACING , the T-wave changes anterolaterally are new. Clinical correlation and f ollow up tracing is recommended. PREVIOUS TRACIN09/27/2014 06.10 DOCTOR: Semaj Malagon Interpretating Date/Time 05/15/2017 18:37:14
--- NOTE | 2017-05-15 18:38 | EKG ---
Date Performed: 05/14/2017 Time Performed: 13:04:19 PTAGE: 76 years EKG: Sinus rhythm INFERIOR MYOCARDIAL INFARCTION ST DEVIATION AND MODERATE T-WAVE ABNORMALITY, CONSIDER ANTEROLATERAL ISCHEMIA ABNORMAL ECG Since PREVIOUS TRACING , no significant change noted PREVIOUS TRACIN05/14/2017 08.51 DOCTOR: Semaj Malagon Interpretating Date/Time 05/15/2017 18:37:26
--- NOTE | 2017-05-15 18:38 | EKG ---
Date Performed: 05/14/2017 Time Performed: 20:44:35 PTAGE: 76 years EKG: Sinus rhythm INFERIOR MYOCARDIAL INFARCTION , PROBABLY OLD ST DEVIATION AND MODERATE T-WAVE ABNORMALITY, CONSIDER ANTEROLATERAL ISCHEMIA ABNORMAL ECG Since PREVIOUS TRACING , no significant change noted PREVIOUS TRACIN05/14/2017 13.04 DOCTOR: Semaj Malagon Interpretating Date/Time 05/15/2017 18:37:37
--- NOTE | 2017-05-15 19:05 | RADRPT ---
EXAM DATE/TIME: 05/15/2017 17:14 [facility] COMPARISON: No previous studies available for comparison. INDICATIONS : Anemia. GI bleed. FLUORO TIME: .7 minutes IMAGE COUNT: 11 CONTRAST: Entero Vu 24% Barium Sulfate (24% w/v, 20% w/w) IMAGING TIME(S): 15 min, 30 min, 45 min MEDICAL HISTORY : Chronic obstructive pulmonary disease. Myocardial infarction. Hypercholesterolemia. Seizures. Syncope . Congestive heart failure. SURGICAL HISTORY : Neurologic surgery. CABG. Cardiac catheterization. Coronary stent. Hernia repair. Carotid surgery ENCOUNTER: Initial ACUITY: 1 day PAIN SCORE: 0/10 LOCATION: Bilateral abdomen FINDINGS: Preliminary film is unremarkable. The patient is status post sternotomy. There is a moderate hiatal hernia. Examination of the small bowel demonstrates normal mucosal pattern involving the jejunum and ileum. There is no evidence of mass or obstruction. No intraluminal filling defects are identified. Small bowel transit time is normal at 45 minutes. Fluoroscopy of the abdomen and terminal ileum demonstrat es no abnormality. CONCLUSION: Moderate hiatal hernia. The small bowel is unremarkable. Marquise Chacon MD on May 15, 2017 at 19:02 Board Certified Radiologist. This report was verified electronically.
[2017-05-16] VITALS (10 sets, daily range): BP systolic 105–161; BP diastolic 56–77; PULSE 68–81; RESP 18–20; TEMP 97.5–98.6; O2SAT 92–96
[2017-05-16] MEDS: RESP: ALBUTEROL 2.5 MG/IPRATROPIUM 0.5 MG NEB (SCH) INH ×4 (03:57→21:15)
[2017-05-16 07:38] LABS: HEMATOCRIT 27.1 % (39.0-51.0); MEAN CELL VOLUME 63.7 FL (80.0-100.0); MEAN CORPUSCULAR HEMOGLOBIN 19.9 PG (27.0-34.0); MEAN CORPUSCULAR HGB CONC 31.3 % (32.0-36.0); PLATELET COUNT 302 TH/MM3 (150-450); RED BLOOD COUNT 4.25 MIL/MM3 (4.50-5.90); RED CELL DISTRIBUTION WIDTH 31.7 % (11.6-17.2); WHITE BLOOD COUNT 8.6 TH/MM3 (4.0-11.0)
[2017-05-16 07:43] LABS: REVIEW FLAG FINAL
[2017-05-16 08:05] LABS: ANION GAP 10 MEQ/L (5-15); BICARBONATE 25.4 MEQ/L (21.0-32.0); BLOOD UREA NITROGEN 11 MG/DL (7-18); CHLORIDE 105 MEQ/L (98-107); GLOMERULAR FILTRATION RATE 56 ML/MIN (>89); POTASSIUM 3.6 MEQ/L (3.5-5.1); SODIUM (NA) 140 MEQ/L (136-145)
[2017-05-16 08:11] LABS: TRANSFERRIN IRON PROFILE 318 MG/DL (200-360)
[2017-05-16 08:20] LABS: FERRITIN 8 NG/ML (26-388)
[2017-05-16] MEDS: SODIUM CHLORIDE 0.9% FLUSH 10 ML FLUSH IV FLUSH SCH ×2 (09:00→21:45)
--- NOTE | 2017-05-16 09:48 | HHI.FPPN ---
Subjective Remarks No acute events overnight. Feels better today with improved shortness of breath , although still gets short of breath with walking. Denies chest pain. Mild lower abdominal pain. (Romeo Webb MD R2) Objective Vitals Vital Signs Date Time Temp Pulse Resp B/P (MAP) Pulse Ox O2 Delivery O2 Flow Rate FiO2 05/16/17 08:27 96 21 05/16/17 04:00 97.6 79 18 125/66 (85) 93 05/16/17 03:59 92 Nasal Cannula 2.50 05/16/17 00:00 98.4 72 18 105/56 (72) 94 05/15/17 20:00 98.3 79 22 132/63 (86) 97 05/15/17 20:00 Room Air 05/15/17 20:00 74 05/15/17 16:00 98.0 69 16 128/60 (82) 96 05/15/17 15:34 97 Nasal Cannula 2.00 05/15/17 15:15 72 16 125/63 (83) 97 Nasal Cannula 2 05/15/17 15:00 74 16 128/60 (82) 97 Nasal Cannula 2 05/15/17 14:42 97.5 72 16 114/57 (76) 94 Nasal Cannula 2 05/15/17 12:00 98.1 80 18 133/70 (91) 95 05/15/17 11:28 69 I/O 05/15/17 05/15/17 05/15/17 05/16/17 05/16/17 05/16/17 07:00 15:00 23:00 07:00 15:00 23:00 Intake Total 0 ml 1100 ml 480 ml Output Total 650 ml 150 ml Balance -650 ml 1100 ml 330 ml Intake Oral 0 ml 480 ml Packed Cells 400 ml Other 700 ml Output Urine Total 650 ml 150 ml # Voids 4 # Bowel Movements 4 0 (Romeo Webb MD R2) Result Diagram: 05/16/1762105/16/17621 Other Results Echocardiogram - LVEF 20-25% with severely reduced wall motion. Imaging Last Impressions Small Bowel X-Ray 05/15/17 0000 Signed Impressions: Service Date/Time: Monday, May 15, 2017 17:14 - CONCLUSION: Moderate hiatal hernia. The small bowel is unremarkable. Marquise Chacon MD Neck Ultrasound 05/14/17 1346 Signed Impressions: Service Date/Time: April 14:05 - CONCLUSION: 1. Palpable abnormality corresponds to prominent venous structures at the junction of the internal and subclavian veins in the right neck. 2. No mass lesions. Bandar Smith MD Chest X-Ray 05/14/17 0849 Signed Impressions: Service Date/Time: April 09:06 - CONCLUSION: Cardiomegaly. Clear lungs. Hiatal hernia. Burt Bojorquez Jr., MD Abdomen Ultrasound 05/14/17 0000 Signed Impressions: Service Date/Time: April 13:48 - CONCLUSION: 1. 6 x 8 mm nonobstructing stone in the lower pole collecting system of the right kidney. 2. Simple cortical cyst laterally in the midpole of the left kidney. 3. Pancreas is partially obscured by overlying bowel gas. Visualized portions are sonographically intact. 4. Otherwise negative. Bandar Smith MD Objective Remarks GENERAL: This is a well-nourished, well-developed patient, in no apparent distress siting in bed CARDIOVASCULAR: NRRR, normal S1/S2 . Soft 2/6 systolic murmur heard on auscultation at left upper sternal border .Regular rate and rhythm without, gallops, or rubs. RESPIRATORY: Crackles heard at lower lung bases BL. Breath sounds vesicular. No respiratory distress. GASTROINTESTINAL: Abdomen soft, non-tender, distended. No hepato-splenomegaly, or palpable masses. No guarding. MUSCULOSKELETAL: Extremities without clubbing, cyanosis, or edema. No joint tenderness, effusion, or edema noted. No calf tenderness. NEUROLOGICAL: Awake and alert. Cranial nerves II through XII intact. Motor and sensory grossly within normal limits. Normal speech. Procedures EGD & Colonoscopy - 05/15/17 Medications and IVs Current Medications Medications (Trade) Dose Ordered Sig/Gadiel Route Start Time Stop Time Status Last Admin (NS Flush) 2 ml UNSCH PRN IV FLUSH 05/14/17 12:30 05/15/17 12:30 (NS Flush) 2 ml BID IV FLUSH 05/14/17 21:00 05/16/17 09:00 (Zofran Inj) 4 mg Q6H PRN IVP 05/14/17 12:30 (Tylenol) 650 mg Q6H PRN PO 05/14/17 12:30 (Morphine Inj) 2 mg Q3H PRN IV PUSH 05/14/17 12:30 (Narcan Inj) 0.4 mg UNSCH PRN IV PUSH 05/14/17 12:30 (Desi-Colace) 1 tab BID PO 05/14/17 21:00 05/16/17 10:17 (Milk Of Magnesia Liq) 30 ml Q12H PRN PO 05/14/17 12:30 (Senokot) 17.2 mg Q12H PRN PO 05/14/17 12:30 (Dulcolax Supp) 10 mg DAILY PRN RECTAL 05/14/17 12:30 (Lactulose Liq) 30 ml DAILY PRN PO 05/14/17 12:30 (Aspirin) 325 mg DAILY PO 05/15/17 09:00 05/16/17 10:17 (Duoneb Neb) 1 ampule Q6HR NEB INH 05/15/17 02:00 05/16/17 08:26 Lactated Ringer's 1,000 ml @ 30 mls/hr Q24H PRN IV 05/15/17 05:15 05/18/17 05:14 05/15/17 12:30 Sodium Chloride 500 ml @ 30 mls/hr [id number] PRN IV 05/15/17 05:15 05/18/17 05:14 (Lopressor) 25 mg PRODUCTION TEAM ADVISOR PRN PO 05/15/17 05:15 05/18/17 05:14 (Betadine 5% Antisepsis Kit) 1 applic PRODUCTION TEAM ADVISOR PRN EACH NARE 05/15/17 05:15 05/18/17 05:14 (Chlorhexidine 2% Cloth) 3 pack PRODUCTION TEAM ADVISOR PRN TOPICAL 05/15/17 05:15 05/18/17 05:14 Miscellaneous Information ALL NURSING DEPARTME... UNSCH PRN .XX 05/15/17 15:30 05/16/17 15:29 (Toprol Xl) 12.5 mg DAILY PO 05/16/17 12:00 (Entresto 24-26 Mg) 1 tab BID PO 05/16/17 21:00 (Romeo Wbeb MD R2) A/P Assessment and Plan 76 yo M with extensive cardiac hx s/p CABG and stent placement admitted for w/u of symptomatic anemia. sdw Dr. Murguia (Romeo Webb MD R2) Attending Attestation Case reviewed and discussed with the resident team. Agree with plan of care as discussed with me and documented in the resident note. (Talisha Murguia MD) Problem List: (1) Symptomatic anemia ICD Codes: D64.9 - Anemia, unspecified Status: Acute Plan: Improved symptomatically today H&H on admission found to 5.5/20.2 S/p 3 units of PRBCs Hgb increased appropriately to ~9 Hgb today AM 8.5 MCV ~60 suggesting blood loss or dietary deficiency as etiology -monitor and consider transfusing if hgb <8 -Check Ferritin, Iron profile -Start oral iron 325 mg PO BID -GI consulted, appreciate recommendations -EGD and Colonoscopy without bleeding source -Outpatient capsule endoscopy (2) CHF (congestive heart failure) ICD Codes: I50.9 - Heart failure, unspecified Status: Acute Plan: EF 20-25%, not currently on CHF meds. Symptoms likely due to combination of anemia and CHF. - Dietary Na restriction 2 gm, fluid restriction 2000 mL - Lasix 20 mg PO daily, can give extra PRN based on symptoms - Start metoprolol ER 12.5 mg daily - Start Entresto low-dose BID - to see if insurance will cover. If not switch to lisinopril low-dose 36 hours after first Entresto dose - Outpatient cardiology referral - Continue ASA daily as below - May benefit from statin therapy as well (3) CAD (coronary artery disease) ICD Codes: I25.10 - Atherosclerotic heart disease of [place] coronary artery without angina pectoris Status: Chronic Plan: Symptomatically improved - Consider statin therapy given CHF - Manage CHF as above (4) Shortness of breath ICD Codes: R06.02 - Shortness of breath Status: Resolved Plan: Increased sob most likely due to anemia plus CHF CXR on 05/14 showed : cardiomegaly, clear lung and hiatal hernia D-dimer negative -c/w duoneb Q6H PRN breathing treatment -incentive spirometry -manage CHF as above (5) Nutrition, metabolism, and development symptoms ICD Codes: R63.8 - Other symptoms and signs concerning food and fluid intake Plan: Fluids: not indicated at this time Electrolytes: WNL, replete as needed Nutrition: Diet regular basic with 2 gm sodium restriction DVT ppx: SCDs Code status: Full code (Romeo Webb MD R2) Problem Qualifiers (1) CHF (congestive heart failure): Qualified Codes: I50.23 - Acute on chronic systolic (congestive) heart failure Romeo Webb MD R2 May 16, 2017 09:48 Talisha Murguia MD May 17, 2017 07:28
[2017-05-16] MEDS: DOCUSATE SODIUM 50 MG/SENNA 8.6 MG TAB PO SCH ×2 (10:17→21:45)
[2017-05-16] MEDS: ASPIRIN 325 MG TAB PO SCH (10:17)
[2017-05-16] MEDS ORDERED: POTASSIUM CHLORIDE 20 MEQ CONTROLLED RELEASE TAB PO ONE (14:00)
[2017-05-16] MEDS ORDERED: FUROSEMIDE 20 MG TAB PO ONE (14:00)
[2017-05-16] MEDS: METOPROLOL SUCCINATE 25 MG EXTENDED RELEASE TAB PO SCH (14:06)
--- NOTE | 2017-05-16 15:19 | HHI.GIFU ---
Subjective Remarks Pt sitting on edge of bed, eating lunch. He is concerned about being discharged with low hgb. No physical complaints. (Evelyn De La O) Objective Vitals I&O Vital Signs Date Time Temp Pulse Resp B/P (MAP) Pulse Ox O2 Delivery O2 Flow Rate FiO2 05/16/17 08:27 96 21 05/16/17 08:00 71 05/16/17 08:00 Room Air 05/16/17 04:00 97.6 79 18 125/66 (85) 93 05/16/17 03:59 92 Nasal Cannula 2.50 05/16/17 00:00 98.4 72 18 105/56 (72) 94 05/15/17 20:00 98.3 79 22 132/63 (86) 97 05/15/17 20:00 Room Air 05/15/17 20:00 74 05/15/17 16:00 98.0 69 16 128/60 (82) 96 05/15/17 15:34 97 Nasal Cannula 2.00 I/O 05/15/17 05/15/17 05/15/17 05/16/17 05/16/17 05/16/17 07:00 15:00 23:00 07:00 15:00 23:00 Intake Total 0 ml 1100 ml 480 ml Output Total 650 ml 150 ml Balance -650 ml 1100 ml 330 ml Intake Oral 0 ml 480 ml Packed Cells 400 ml Other 700 ml Output Urine Total 650 ml 150 ml # Voids 4 # Bowel Movements 4 0 Laboratory Laboratory Tests Test 05/15/17 16:11 05/16/17 06:22 Hemoglobin 9.0 8.5 Hematocrit 30.2 27.1 White Blood Count 8.6 Red Blood Count 4.25 Mean Corpuscular Volume 63.7 Mean Corpuscular Hemoglobin 19.9 Mean Corpuscular Hemoglobin Concent 31.3 Red Cell Distribution Width 31.7 Platelet Count 302 Mean Platelet Volume 8.6 Blood Urea Nitrogen 11 Creatinine 1.26 Random Glucose 90 Calcium Level 8.4 Sodium Level 140 Potassium Level 3.6 Chloride Level 105 Carbon Dioxide Level 25.4 Anion Gap 10 Estimat Glomerular Filtration Rate 56 Iron Level 17 Total Iron Binding Capacity 445 Percent Iron Saturation 3.8 Ferritin 8 B-Type Natriuretic Peptide 1520 Imaging Last Impressions Small Bowel X-Ray 05/15/17 0000 Signed Impressions: Service Date/Time: Monday, May 15, 2017 17:14 - CONCLUSION: Moderate hiatal hernia. The small bowel is unremarkable. Marquise Chacon MD Neck Ultrasound 05/14/17 1346 Signed Impressions: Service Date/Time: April 14:05 - CONCLUSION: 1. Palpable abnormality corresponds to prominent venous structures at the junction of the internal and subclavian veins in the right neck. 2. No mass lesions. Bandar Smith MD Chest X-Ray 05/14/17 0849 Signed Impressions: Service Date/Time: April 09:06 - CONCLUSION: Cardiomegaly. Clear lungs. Hiatal hernia. Burt Bojorquez Jr., MD Abdomen Ultrasound 05/14/17 0000 Signed Impressions: Service Date/Time: April 13:48 - CONCLUSION: 1. 6 x 8 mm nonobstructing stone in the lower pole collecting system of the right kidney. 2. Simple cortical cyst laterally in the midpole of the left kidney. 3. Pancreas is partially obscured by overlying bowel gas. Visualized portions are sonographically intact. 4. Otherwise negative. Bandar Smith MD Physical Exam HEENT: PERRL; normocephalic; atraumatic; no jaundice. CHEST: CTA CARDIAC: RRR ABDOMEN: Soft, Protuberant, nontender; no hepatosplenomegaly; bowel sounds are present in all four quadrants. EXTREMITIES: No clubbing, cyanosis, or edema. SKIN: Normal; no rash; no jaundice. SYSTEMS ARCHITECT: No focal deficits; alert and oriented times three. (Evelyn De La O [facility]) Assessment and Plan Plan ASSESSMENT - anemia - hgb 5.5 on admission, microcytic hypochromic. stool occult neg. no signs GI bleeding. 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 Colonoscopy 12 y ago in [facility] as work up for anemia and no bleeding found. s/p EGD/colonoscopy 05/15/17 --> gastritis, hiatal hernia, hemorrhoids. SBFT moderate Hiatal hernia otherwise unremarkable. mild drop hgb today but no sign GIB. pt will need capsul endoscopy to rule out small bowel source of bleed. ?hematology consult - elev troponins, CHF, COPD - PLAN - await path - capsule endoscopy as outpatient - consider hematology consult - monitor labs - transfuse as necessary - supportive care - f/u with GI after d/c THis pt seen by myself and Dr Das and this note is written on his behalf (Evelyn De La O) Physician Comments Patient seen and examined Agree with above Continue with current supportive care Monitor labs If hemoglobin tomorrow is stable patient may be discharged from a GI standpoint follow-up as outpatient for outpatient capsule endoscopy (Humza Das MD) Evelyn De La O May 16, 2017 15:19 Humza Das MD May 16, 2017 21:52
[2017-05-16] MEDS: SACUBITRIL/VALSARTAN 24 MG-26 MG TAB PO SCH (21:45)
[2017-05-17] VITALS: BP 116/61; PULSE 73; RESP 20; TEMP 97.7; O2SAT 95
[2017-05-17 04:00] VITALS: BP 118/70; PULSE 77; RESP 18; TEMP 98; O2SAT 94
[2017-05-17] MEDS: RESP: ALBUTEROL 2.5 MG/IPRATROPIUM 0.5 MG NEB (SCH) INH ×2 (04:00→09:00)
[2017-05-17 08:00] VITALS: BP 126/58; PULSE 77; RESP 20; TEMP 97.5; O2SAT 94
[2017-05-17] MEDS: DOCUSATE SODIUM 50 MG/SENNA 8.6 MG TAB PO SCH (08:28)
[2017-05-17] MEDS: SACUBITRIL/VALSARTAN 24 MG-26 MG TAB PO SCH (08:28)
[2017-05-17] MEDS: METOPROLOL SUCCINATE 25 MG EXTENDED RELEASE TAB PO SCH (08:28)
[2017-05-17] MEDS: ASPIRIN 325 MG TAB PO SCH (08:28)
[2017-05-17] MEDS: SODIUM CHLORIDE 0.9% FLUSH 10 ML FLUSH IV FLUSH SCH (08:29)
[2017-05-17 09:00] VITALS: O2SAT 95
[2017-05-17] MEDS ORDERED: FUROSEMIDE 20 MG TAB PO SCH (09:00)
--- NOTE | 2017-05-17 09:41 | HHI.FPPN ---
Subjective Remarks Patient seen and examined at bedside. No acute events overnight. Pt stated his breathing has improved. He was able to walk with physical therapy, although he had to pause from time to time in order to catch his breath. Denies CP or dizziness. Reports mild abdominal pain since colonoscopy procedure. Pt stated he was eating well. (Violette Gibbs MD, R1) Objective Vitals Vital Signs Date Time Temp Pulse Resp B/P (MAP) Pulse Ox O2 Delivery O2 Flow Rate FiO2 05/17/17 09:00 95 21 05/17/17 04:00 98.0 77 18 118/70 (86) 94 05/17/17 00:00 97.7 73 20 116/61 (79) 95 05/16/17 21:45 Room Air 05/16/17 21:18 96 05/16/17 20:11 68 05/16/17 20:00 Room Air 05/16/17 20:00 98.0 71 20 127/66 (86) 96 05/16/17 16:00 97.5 73 20 141/67 (91) 94 05/16/17 12:00 98.6 73 20 143/77 (99) 95 I/O 05/16/17 05/16/17 05/16/17 05/17/17 05/17/17 05/17/17 07:00 15:00 23:00 07:00 15:00 23:00 Intake Total 480 ml 750 ml 360 ml Output Total 150 ml Balance 330 ml 750 ml 360 ml Intake Oral 480 ml 750 ml 360 ml Output Urine Total 150 ml # Voids 4 6 # Bowel Movements 0 0 0 (Violette Gibbs MD, R1) Result Diagram: 05/16/17 0622 05/16/17 0622 Imaging Last Impressions Small Bowel X-Ray 05/15/17 0000 Signed Impressions: Service Date/Time: Monday, May 15, 2017 17:14 - CONCLUSION: Moderate hiatal hernia. The small bowel is unremarkable. Marquise Cahcon MD Neck Ultrasound 05/14/17 1346 Signed Impressions: Service Date/Time: April 14:05 - CONCLUSION: 1. Palpable abnormality corresponds to prominent venous structures at the junction of the internal and subclavian veins in the right neck. 2. No mass lesions. Bandar Smith MD Chest X-Ray 05/14/17 0849 Signed Impressions: Service Date/Time: April 09:06 - CONCLUSION: Cardiomegaly. Clear lungs. Hiatal hernia. Burt Bojorquez Jr., MD Abdomen Ultrasound 05/14/17 0000 Signed Impressions: Service Date/Time: April 13:48 - CONCLUSION: 1. 6 x 8 mm nonobstructing stone in the lower pole collecting system of the right kidney. 2. Simple cortical cyst laterally in the midpole of the left kidney. 3. Pancreas is partially obscured by overlying bowel gas. Visualized portions are sonographically intact. 4. Otherwise negative. Bandar Smith MD Objective Remarks GENERAL: This is a well-nourished, well-developed patient, in no apparent distress siting in bed CARDIOVASCULAR: NRRR, normal S1/S2 . Soft 2/6 systolic murmur heard on auscultation at left upper sternal border .Regular rate and rhythm without, gallops, or rubs. RESPIRATORY: Breath sounds vesicular. No respiratory distress. GASTROINTESTINAL: Abdomen soft, non-tender, distended. No hepato-splenomegaly, or palpable masses. No guarding. MUSCULOSKELETAL: Extremities without clubbing, cyanosis, or edema. No joint tenderness, effusion, or edema noted. No calf tenderness. NEUROLOGICAL: Awake and alert. Cranial nerves II through XII intact. Motor and sensory grossly within normal limits. Normal speech. Procedures EGD & Colonoscopy - 05/15/17 (Violette Gibbs MD, R1) A/P Assessment and Plan 76 yo M with extensive cardiac hx s/p CABG and stent placement admitted for w/u of symptomatic anemia. sdw Dr. Murguia (Violette Gibbs MD, R1) Attending Attestation Patient seen and examined. Case reviewed and discussed with the resident team. Agree with plan of care as discussed with me and documented in the resident note. (Talisha Murguia MD) Problem List: (1) Symptomatic anemia ICD Codes: D64.9 - Anemia, unspecified Status: Acute Plan: Improved symptomatically today H&H on admission found to 5.5/20.2 S/p 3 units of PRBCs Hgb increased appropriately to ~9 Hgb today AM 9.7, has remained stable MCV ~60 suggesting blood loss or dietary deficiency as etiology -c/w oral iron 325 mg PO BID -GI consulted, appreciate recommendations -EGD and Colonoscopy without bleeding source -Outpatient capsule endoscopy (2) CHF (congestive heart failure) ICD Codes: I50.9 - Heart failure, unspecified Status: Acute Plan: EF 20-25%, CHF meds started yesterday. Symptoms likely due to combination of anemia and CHF. - Dietary Na restriction 2 gm, fluid restriction 2000 mL - Lasix 20 mg PO daily, can give extra PRN based on symptoms - c/w metoprolol ER 12.5 mg daily - c/w Entresto low-dose BID - spoke CM in regards to insurance coverage, and CM stated patient insurance should cover cost but he may have a copay. - Outpatient cardiology referral - Continue ASA daily as below - May benefit from statin therapy as well (3) CAD (coronary artery disease) ICD Codes: I25.10 - Atherosclerotic heart disease of [place] coronary artery without angina pectoris Status: Chronic Plan: Symptomatically improved - Consider statin therapy given CHF - Manage CHF as above (4) Shortness of breath ICD Codes: R06.02 - Shortness of breath Status: Resolved Plan: Increased sob most likely due to anemia plus CHF CXR on 05/14 showed : cardiomegaly, clear lung and hiatal hernia D-dimer negative -c/w duoneb Q6H PRN breathing treatment -incentive spirometry -manage CHF as above (5) Nutrition, metabolism, and development symptoms ICD Codes: R63.8 - Other symptoms and signs concerning food and fluid intake Plan: Fluids: not indicated at this time Electrolytes: WNL, replete as needed Nutrition: Diet regular basic with 2 gm sodium restriction DVT ppx: SCDs Code status: Full code (Violette Gibbs MD, R1) Problem Qualifiers (1) CHF (congestive heart failure): Qualified Codes: I50.23 - Acute on chronic systolic (congestive) heart failure Violette Gibbs MD, R1 May 17, 2017 09:41 Talisha Murguia MD May 18, 2017 09:10
[2017-05-17 10:08] LABS: HEMATOCRIT 32.5 % (39.0-51.0)
[2017-05-17 10:15] LABS: REVIEW FLAG FINAL
--- NOTE | 2017-05-17 10:28 | HHI.FF ---
Face to Face Verification Diagnosis: (1) CHF (congestive heart failure) (2) Shortness of breath Physical Therapy Order: Evaluate and Treat Home Health Nursing Order: Signs/symptoms of disease process CHF education I have seen patient Sean Ibarra on 05/17/17. My clinical findings support the need for the requested home health care services because: Patient has SOB I certify that my clinical findings support that this patient is homebound because: Hx COPD- exertion dyspnea/weakness Violette Gibbs MD, R1 May 17, 2017 10:28
[2017-05-17 10:34] LABS: BICARBONATE 22.3 MEQ/L (21.0-32.0); POTASSIUM 4.1 MEQ/L (3.5-5.1)
--- NOTE | 2017-05-17 10:35 | HHI.DCPOC ---
Discharge Care Plan Diagnosis: (1) CHF (congestive heart failure) (2) Shortness of breath (3) Anemia Goals to Promote Your Health * To prevent worsening of your condition and complications * To maintain your health at the optimal level Directions to Meet Your Goals Take your medications as prescribed Follow your dietary instruction Follow activity as directed Keep your appointments as scheduled Take your immunizations and boosters as scheduled If your symptoms worsen call your PCP, if no PCP go to Urgent Care Center or Emergency Room Smoking is Dangerous to Your Health. Avoid second hand smoke Call the 24-hour hour crisis hotline for domestic abuse at Violette Gibbs MD, R1 May 17, 2017 10:35
[2017-05-17] MEDS ORDERED: FURO20TA PO (10:44)
[2017-05-17] MEDS ORDERED: SACU1TAB PO (10:44)
[2017-05-17] MEDS ORDERED: METO1TAB42 PO (10:44)
[2017-05-17] MEDS ORDERED: Albuterol-Ipratropium Neb INH (10:47)
[2017-05-17] MEDS ORDERED: NEBULIZER1 MI1 (10:49)
[2017-05-17] MEDS ORDERED: FERR325T18 PO (10:51)
--- NOTE | 2017-05-19 20:10 | HHI.DS ---
Discharge Summary Admission Date May 14, 2017 at 11:26 Discharge Date: May 17, 2017 Admitting Diagnosis Anemia, CHF (1) Symptomatic anemia Diagnosis: Principal Plan: Improved symptomatically today H&H on admission found to 5.5/20.2 S/p 3 units of PRBCs Hgb increased appropriately to ~9 Hgb today AM 9.7, has remained stable MCV ~60 suggesting blood loss or dietary deficiency as etiology -c/w oral iron 325 mg PO BID -GI consulted, appreciate recommendations -EGD and Colonoscopy without bleeding source -Outpatient capsule endoscopy ICD Codes: D64.9 - Anemia, unspecified Status: Acute (2) CHF (congestive heart failure) Diagnosis: Principal Plan: EF 20-25%, CHF meds started yesterday. Symptoms likely due to combination of anemia and CHF. - Dietary Na restriction 2 gm, fluid restriction 2000 mL - Lasix 20 mg PO daily, can give extra PRN based on symptoms - c/w metoprolol ER 12.5 mg daily - c/w Entresto low-dose BID - spoke CM in regards to insurance coverage, and CM stated patient insurance should cover cost but he may have a copay. - Outpatient cardiology referral - Continue ASA daily as below - May benefit from statin therapy as well ICD Codes: I50.9 - Heart failure, unspecified Status: Acute (3) CAD (coronary artery disease) Diagnosis: Secondary Plan: Symptomatically improved - Consider statin therapy given CHF - Manage CHF as above ICD Codes: I25.10 - Atherosclerotic heart disease of [place] coronary artery without angina pectoris Status: Chronic (4) Shortness of breath Diagnosis: Secondary Plan: Increased sob most likely due to anemia plus CHF CXR on 05/14 showed : cardiomegaly, clear lung and hiatal hernia D-dimer negative -c/w duoneb Q6H PRN breathing treatment -incentive spirometry -manage CHF as above ICD Codes: R06.02 - Shortness of breath Status: Resolved Consultants Gi- Dr. Das Procedures EGD & Colonoscopy - 05/15/17 Echo--05/15/17 Brief History Patient is a 76-year-old male with extensive cardiac history status post CABG and stent placements x3 presented to the ED with complaints of progressively worsening shortness of breath on exertion and fatigue. Patient states that shortness of breath on exertion has been occurring during the past year but has worsen in the past 2 days to the point where he is not able to walk short distances without stopping to catch his breath. Patient states he has bandlike chest pain across the rib cage radiating to the back. Describes back pain as stabbing quality. Of note patient states that this chest pain is similar to pain he experienced before he had stents placed. Denies radiation of pain into his left jaw or left arm. Patient also reports swelling in his lower extremities for the past 5 days. Denies weight loss, dizziness, vision changes, abdominal pain, nausea, vomiting, blood in his stool. Pt takes asa 325mg daily. Of note patient states last colonoscopy was 13 years ago and it was normal. He also stated that 13 years ago he was diagnosed with anemia (hgb 7.1) and required blood transfusion. The source of the bleeding was not identified. CBC/BMP: 05/17/17 0930 05/17/17 0930 Significant Findings Laboratory Tests Test 05/17/17 09:30 Hemoglobin 9.7 GM/DL (13.0-17.0) Hematocrit 32.5 % (39.0-51.0) Creatinine 1.44 MG/DL (0.60-1.30) Random Glucose 120 MG/DL (74-106) Estimat Glomerular Filtration Rate 48 ML/MIN (>89) B-Type Natriuretic Peptide 1624 PG/ML (0-100) Imaging Last Impressions Small Bowel X-Ray 05/15/17 0000 Signed Impressions: Service Date/Time: Monday, May 15, 2017 17:14 - CONCLUSION: Moderate hiatal hernia. The small bowel is unremarkable. Marquise Chacon MD Neck Ultrasound 05/14/17 1346 Signed Impressions: Service Date/Time: April 14:05 - CONCLUSION: 1. Palpable abnormality corresponds to prominent venous structures at the junction of the internal and subclavian veins in the right neck. 2. No mass lesions. Bandar Smith MD Chest X-Ray 05/14/17 0849 Signed Impressions: Service Date/Time: April 09:06 - CONCLUSION: Cardiomegaly. Clear lungs. Hiatal hernia. Burt Bojorquez Jr., MD Abdomen Ultrasound 05/14/17 0000 Signed Impressions: Service Date/Time: April 13:48 - CONCLUSION: 1. 6 x 8 mm nonobstructing stone in the lower pole collecting system of the right kidney. 2. Simple cortical cyst laterally in the midpole of the left kidney. 3. Pancreas is partially obscured by overlying bowel gas. Visualized portions are sonographically intact. 4. Otherwise negative. Bandar Smith MD PE at Discharge GENERAL: This is a well-nourished, well-developed patient, in no apparent distress siting in bed CARDIOVASCULAR: NRRR, normal S1/S2 . Soft 2/6 systolic murmur heard on auscultation at left upper sternal border .Regular rate and rhythm without, gallops, or rubs. RESPIRATORY: Breath sounds vesicular. No respiratory distress. GASTROINTESTINAL: Abdomen soft, non-tender, distended. No hepato-splenomegaly, or palpable masses. No guarding. MUSCULOSKELETAL: Extremities without clubbing, cyanosis, or edema. No joint tenderness, effusion, or edema noted. No calf tenderness. NEUROLOGICAL: Awake and alert. Cranial nerves II through XII intact. Motor and sensory grossly within normal limits. Normal speech. Hospital Course Mr. Ibarra is a [id number]- Male with extensive cardiac hx s/p CABG and stent placement presented to the ED on 05/14/17 with complaints of symptomatic anemia. The workup during this admission revealed anemia with Hgb/Hct of 5.5/ 20.2. CXR on admission showed cardiomegaly but lungs were clear. Pt received 2 units of PRBCs the day of admission and 1 additional unit of PRBCs to maintain hgb >8 due to his cardiac hx. After the transfusions pt experienced sob and received lasix for diuresis with appropriate response. GI was consulted. EGD and colonoscopy procedures were done on 05/15/17 and showed normal esophagus, hiatal hernia, gastritis, no gastric ulcers, colon was unremarkable except for internal hemorrhoids. No active bleeding was found on EGD or colonoscopy. Biopsies were taken from duodenum and stomach. Echo on 05/15/17 showed mild dilated left ventricle and EF of 20-25%. Pt was started on heart failure medications.Patient reported improvement of sob with exertion and he was able to work with physical therapy. Patient was transfused a total of 3 units of PRBCs and his H/H remained stable during the rest the hospitalization. Pt was advised to follow-up with GI as out patient for capsule endoscopy procedure. Patient was hemodynamically stable upon discharge. Pt Condition on Discharge: Stable Discharge Disposition: Disch w/ Home Health Serv Discharge Instructions DIET: Follow Instructions for: Heart Healthy Diet Activities you can perform: Weight Bearing as [place] Follow up Referrals: Cardiology - 1 Week Gastroenterology - 1 Week with Humza Das MD PCP Follow-up - 1 Week If pt not able to see a pcp within the next wk please refer to [facility] medicine practice at [address] [facility], phone # [phone] New Medications: Ferrous Sulfate (Ferrous Sulfate) 325 Mg (65 Mg Iron) Tablet 325 MG PO BIDPC for Nutritional Supplement, #60 TAB 0 Refills Nebulizer (Nebulizer) 1 Mis Mis EA .ROUTE DIRECTED for Breathing Treatment, #1 0 Refills Furosemide (Furosemide) 20 Mg Tab 20 MG PO DAILY, #30 TAB Metoprolol Succinate ER 24 HR (Metoprolol Succinate ER 24 HR) 25 Mg Tab 12.5 MG PO DAILY, #30 TAB 0 Refills Sacubitril-Valsartan (Entresto) 24-26 Mg Tab 1 TAB PO BID, #60 TAB [Albuterol-Ipratropium Neb] () 1 AMPULE NEBU 1 AMPULE INH Q6HR NEB, #120 0 Refills Continued Medications: Aspirin (Aspirin) 325 Mg Tab 325 MG PO DAILY, #30 TAB 0 Refills Violette Gibbs MD, R1 May 19, 2017 20:10
== END 2017-05-17 13:16 | disposition home health service (06) | DRG 811 ==
LOC: NEPE 08:22 → NEDA 11:26 → N04B 14:57
PROVIDERS: ADMIT Family Medicine; ATTEND Family Medicine
PROC: 30233N1 Transfusion of Nonautologous Red Blood Cells into Peripheral Vein, Percutaneous Approach (ICD-10-PCS; principal; 2017-05-14)
PROC: 0DB98ZX Excision of Duodenum, Via Natural or Artificial Opening Endoscopic, Diagnostic (ICD-10-PCS; 2017-05-15)
PROC: 0DJD8ZZ Inspection of Lower Intestinal Tract, Via Natural or Artificial Opening Endoscopic (ICD-10-PCS; 2017-05-15)
PROC: 0DB68ZX Excision of Stomach, Via Natural or Artificial Opening Endoscopic, Diagnostic (ICD-10-PCS; 2017-05-15 13:32)
DX: D64.9 Anemia, unspecified (principal); I50.23 Acute on chronic systolic (congestive) heart failure; J44.9 Chronic obstructive pulmonary disease, unspecified; I35.8 Other nonrheumatic aortic valve disorders; N28.1 Cyst of kidney, acquired; I11.0 Hypertensive heart disease with heart failure; I25.10 Atherosclerotic heart disease of native coronary artery without angina pectoris; M15.9 Polyosteoarthritis, unspecified; I25.2 Old myocardial infarction; G47.30 Sleep apnea, unspecified; F32.9 Major depressive disorder, single episode, unspecified; K29.50 Unspecified chronic gastritis without bleeding; K64.8 Other hemorrhoids; K44.9 Diaphragmatic hernia without obstruction or gangrene; R01.1 Cardiac murmur, unspecified; F10.21 Alcohol dependence, in remission; F41.9 Anxiety disorder, unspecified; Z79.82 Long term (current) use of aspirin; Z86.73 Personal history of transient ischemic attack (TIA), and cerebral infarction without residual deficits; Z87.891 Personal history of nicotine dependence; Z95.1 Presence of aortocoronary bypass graft; Z95.5 Presence of coronary angioplasty implant and graft
CPT/HCPCS: 36430; 71010; 74250; 76536; 76700; 80048; 80053; 82550; 82728; 83540; 83550; 83880; 84484; 85014; 85018; 85025; 85027; 85379; 85610; 85730; 86850; 86900; 86901; 86920; 88305; 88312; 93005; 93306; 94150; 94640; 94664; G0103; J7050; J7120; J7613; P9016

== ENCOUNTER 2017-08-08 18:07 | Observation (INO) | payer OTHER, MEDICARE ==
[~2017-08-08] VITALS: Ht 167.6 cm; Wt 100.0 kg
[~2017-08-08 18:07] MED LIST changes: +ASPI-183 PO; -ASPI81TA82 PO; +Albuterol-Ipratropium Neb INH; +FERR325T18 PO; +FURO20TA PO; +METO1TAB42 PO; +NEBULIZER1 MI1; -PLAV75TA PO; +SACU1TAB PO
[2017-08-08 18:10] VITALS: BP 135/66; PULSE 67; RESP 18; TEMP 98.4; O2SAT 98
[2017-08-08 18:17] VITALS: BP 138/70; PULSE 68; RESP 20; TEMP 98.4; O2SAT 98
[2017-08-08 18:21] VITALS: RESP 20; O2SAT 98
[2017-08-08] MEDS ORDERED: SODIUM CHLORIDE 0.9% FLUSH 10 ML FLUSH IVF PRN (18:30)
[2017-08-08 18:35] LABS: AUTOMATED NEUTROPHIL # 3.5 TH/MM3 (1.8-7.7); BASOPHIL # 0.1 TH/MM3 (0-0.2); BASOPHIL % 0.9 % (0.0-2.0); EOSINOPHIL # 0.4 TH/MM3 (0-0.4); HEMATOCRIT 34.8 % (39.0-51.0); HEMOGLOBIN 11.4 GM/DL (13.0-17.0); LYMPHOCYTE # 1.7 TH/MM3 (1.0-4.8); MEAN CORPUSCULAR HGB CONC 32.9 % (32.0-36.0); MONOCYTE # 0.8 TH/MM3 (0-0.9); NEUT % 54.1 % (16.0-70.0); PLATELET COUNT 280 TH/MM3 (150-450); RED BLOOD COUNT 4.24 MIL/MM3 (4.50-5.90); RED CELL DISTRIBUTION WIDTH 16.8 % (11.6-17.2); WHITE BLOOD COUNT 6.6 TH/MM3 (4.0-11.0)
[2017-08-08 18:41] LABS: PROTHROMBIN TIME - PATIENT 10.3 SEC (9.8-11.6)
[2017-08-08] MEDS ORDERED: METO25TA3 PO (18:44)
[2017-08-08] MEDS ORDERED: SIMV20TA PO (18:44)
[2017-08-08] MEDS ORDERED: PANT40TA3 PO (18:44)
--- NOTE | 2017-08-08 18:44 | PD ---
HPI Chief Complaint: Cardiac Complaint Time Seen by Provider: 18:16 Travel History International Travel<30 days: No Contact w/Intl Traveler<30days: No Traveled to known affect area: No History of Present Illness HPI There is a 77-year-old man who presents to the emergency department complaining of weakness and chest pain. He was admitted with anemia and CHF exacerbation in April. He said since that time he has had left-sided chest pain is been fairly persistent. Symptoms are constant, not really wax or wane with exertion. He states over the past week is gotten progressively more weak. He had 2 falls yesterday. He felt progressively more weak and short of breath today and so he called the ambulance. He has had a little bit of slight cough. He has not had any other symptoms. H he states when he was previously admitted that did not find the source of the anemia. His hemoglobin was 5.5 at that time with microcytic indices. Endoscopy was negative. Done well since then. History Past Medical History Narrative Medical CAD, history of CABG CHF COPD History of TIA Nocturia Social History Alcohol Use: No (QUIT 40YRS AGO) Tobacco Use: No Allergies-Medications (Allergen,Severity, Reaction): Coded Allergies: No Known Allergies (Verified Allergy, Unknown, 05/14/17) Reported Meds & Prescriptions Reported Meds & Active Scripts Active Nebulizer 1 Mis Mis Ea .ROUTE DIRECTED [Albuterol-Ipratropium Neb] 1 AMPULE Nebu 1 Ampule INH Q6HR NEB Furosemide 20 Mg Tab 20 Mg PO DAILY Entresto (Sacubitril-Valsartan) 24-26 Mg Tab 1 Tab PO BID Reported Pantoprazole (Pantoprazole Sodium) 40 Mg Tab 40 Mg PO DAILY Metoprolol Tartrate 25 Mg Tab 25 Mg PO DAILY Simvastatin 20 Mg Tab 20 Mg PO DAILY Aspirin 325 Mg Tab 325 Mg PO DAILY Review of Systems Except as stated in HPI: all other systems reviewed are Neg Physical Exam Narrative GENERAL: 77-year-old man, no acute distress. Generally well-appearing. SKIN: Focused skin assessment warm/dry. HEAD: Atraumatic. Normocephalic. EYES: Pupils equal and round. No scleral icterus. No injection or drainage. ENT: No nasal bleeding or discharge. Mucous membranes pink and moist. NECK: Trachea midline. No JVD. CARDIOVASCULAR: Regular rate and rhythm. Fairly prominent systolic heart murmur on the right sternal border. No murmur appreciated. RESPIRATORY: No accessory muscle use. Clear to auscultation. Breath sounds equal bilaterally. GASTROINTESTINAL: Abdomen soft, non-tender, nondistended. Hepatic and splenic margins not palpable. MUSCULOSKELETAL: No obvious deformities. Trace edema. NEUROLOGICAL: Awake and alert. No obvious cranial nerve deficits. Motor grossly within normal limits. Normal speech. PSYCHIATRIC: Appropriate mood and affect; insight and judgment normal. Data Data Last Documented VS Vital Signs Date Time Temp Pulse Resp B/P (MAP) Pulse Ox O2 Delivery O2 Flow Rate FiO2 08/08/17 18:21 20 98 Nasal Cannula 2.00 08/08/17 18:17 98.4 68 Orders Orders Electrocardiogram (08/08/17:) B-Type Natriuretic Peptide (08/08/17 18:) Complete Blood Count With Diff (08/08/17 18:) Comprehensive Metabolic Panel (08/08/17 18:) Magnesium (Mg) (08/08/17 18:) Prothrombin Time / Inr (Pt) (08/08/17 18:) Act Partial Throm Time (Ptt) (08/08/17 18:) Troponin I (08/08/17 18:) Chest, Single Ap (08/08/17 18:17) Ecg Monitoring (08/08/17 18:) Bilateral Bp Monitoring (08/08/17 18:17) Iv Access Insert/Monitor (08/08/17 18:17) Oximetry (08/08/17 18:17) Oxygen Administration (08/08/17 18:) Sodium Chloride 0.9% Flush (Ns Flush) (08/08/17 18:30) Influenzae A/B Antigen (08/08/17 18:) Labs Laboratory Tests Test 08/08/17 17:20 White Blood Count 6.6 TH/MM3 Red Blood Count 4.24 MIL/MM3 Hemoglobin 11.4 GM/DL Hematocrit 34.8 % Mean Corpuscular Volume 82.0 FL Mean Corpuscular Hemoglobin 27.0 PG Mean Corpuscular Hemoglobin Concent 32.9 % Red Cell Distribution Width 16.8 % Platelet Count 280 TH/MM3 Mean Platelet Volume 7.0 FL Neutrophils (%) (Auto) 54.1 % Lymphocytes (%) (Auto) 26.0 % Monocytes (%) (Auto) 13.0 % Eosinophils (%) (Auto) 6.0 % Basophils (%) (Auto) 0.9 % Neutrophils # (Auto) 3.5 TH/MM3 Lymphocytes # (Auto) 1.7 TH/MM3 Monocytes # (Auto) 0.8 TH/MM3 Eosinophils # (Auto) 0.4 TH/MM3 Basophils # (Auto) 0.1 TH/MM3 CBC Comment AUTO DIFF Prothrombin Time 10.3 SEC Prothromb Time International Ratio 1.0 RATIO Activated Partial Thromboplast Time 24.5 SEC Blood Urea Nitrogen 26 MG/DL Creatinine 1.54 MG/DL Random Glucose 109 MG/DL Albumin 3.4 GM/DL Calcium Level 7.8 MG/DL Magnesium Level 2.5 MG/DL Aspartate Amino Transf (AST/SGOT) 17 U/L Alanine Aminotransferase (ALT/SGPT) 21 U/L Sodium Level 140 MEQ/L Potassium Level 3.6 MEQ/L Chloride Level 108 MEQ/L Carbon Dioxide Level 24.2 MEQ/L Anion Gap 8 MEQ/L Estimat Glomerular Filtration Rate 44 ML/MIN [facility] Medical Decision Making Medical Screen Exam Complete: Yes Emergency Medical Condition: Yes Interpretation(s) My view of EKG: Normal sinus rhythm at a rate of 63, inferior Q waves, normal axis, lateral ST depressions and T-wave inversions. No definite evidence of acute ischemia. Differential Diagnosis Pneumonia, anemia, weakness, aortic stenosis, ACS, other Narrative Course Medical decision making Initial: 77-year-old man, presents to the emergency department with worsening weakness associated with some chest pain. Prominent systolic murmur. Looks generally well. Dropped his blood pressure with nitroglycerin could suggest some aortic stenosis, hypovolemia, anemia. Check labs, x-ray, EKG, likely admit for observation. Kendell Bradshaw MD Aug 08, 2017 18:44
[2017-08-08 19:01] LABS: ALBUMIN 3.4 GM/DL (3.4-5.0); AST (GOT) 17 U/L (15-37); BICARBONATE 24.2 MEQ/L (21.0-32.0); BLOOD UREA NITROGEN 26 MG/DL (7-18); CALCIUM 7.8 MG/DL (8.5-10.1); CHLORIDE 108 MEQ/L (98-107); CREATININE 1.54 MG/DL (0.60-1.30); GLOMERULAR FILTRATION RATE 44 ML/MIN (>89); GLUCOSE,RANDOM 109 MG/DL (74-106); MAGNESIUM 2.5 MG/DL (1.5-2.5); SODIUM (NA) 140 MEQ/L (136-145)
--- NOTE | 2017-08-08 19:01 | RADRPT ---
EXAM DATE/TIME: 08/08/2017 18:46 [facility] COMPARISON: CHEST SINGLE AP, September 26, 2014, 3:22. CHEST SINGLE AP, May 14, 2017, 9:06. INDICATIONS : Chest pain. MEDICAL HISTORY : Chronic obstructive pulmonary disease. Congestive heart failure. Myocardial infarction. SURGICAL HISTORY : CABG. Coronary artery stent. ENCOUNTER: Initial ACUITY: 2 days PAIN SCORE: 5/10 LOCATION: Bilateral chest FINDINGS: Frontal view of the chest demonstrates a large retrocardiac density, presumed to represent hiatus her aye, unchanged appearance from prior chest x-rays dating back to August 2014. Evidence of prior media n sternotomy with discontinuity of the superior sternal wire suture, unchanged from prior. The heart is normal size. Both hemidiaphragms are well delineated. Several healed right lateral rib fracture s. No focal areas of consolidation or infiltrate in the lungs. CONCLUSION: No acute findings. No focal infiltrates seen. Burt Arango MD on August 08, 2017 at 18:58 Board Certified Radiologist. This report was verified electronically.
[2017-08-08 19:02] LABS: ALT (GPT) 21 U/L (12-78)
[2017-08-08 19:06] LABS: ALKALINE PHOSPHATASE 61 U/L (45-117); TOTAL BILIRUBIN ADULT 0.2 MG/DL (0.2-1.0); TOTAL PROTEIN 6.8 GM/DL (6.4-8.2); TROPONIN I 0.04 NG/ML (0.02-0.05)
--- NOTE | 2017-08-08 19:29 | PD ---
Physical Exam Date Seen by Provider: Aug 08, 2017 Time Seen by Provider: 19:28 Narrative Accepted in transfer of care from Dr. andujar Data Data Last Documented VS Vital Signs Date Time Temp Pulse Resp B/P (MAP) Pulse Ox O2 Delivery O2 Flow Rate FiO2 08/08/17 20:45 58 16 110/63 (79) 98 Room Air 08/08/17 18:21 2.00 08/08/17 18:17 98.4 Orders Orders Electrocardiogram (08/08/17 18:17) B-Type Natriuretic Peptide (08/08/17 18:17) Complete Blood Count With Diff (08/08/17 18:17) Comprehensive Metabolic Panel (08/08/17 18:17) Magnesium (Mg) (08/08/17 18:17) Prothrombin Time / Inr (Pt) (08/08/17 18:) Act Partial Throm Time (Ptt) (08/08/17 18:17) Troponin I (08/08/17 18:17) Chest, Single Ap (08/08/17 18:17) Ecg Monitoring (08/08/17 18:17) Bilateral Bp Monitoring (08/08/17 18:17) Iv Access Insert/Monitor (08/08/17 18:17) Oximetry (08/08/17 18:17) Oxygen Administration (08/08/17 18:17) Sodium Chloride 0.9% Flush (Ns Flush) (08/08/17 18:30) Influenzae A/B Antigen (08/08/17 18:17) Admit Order (Ed Use Only) (08/08/17 ) Crossbar Frame Wirer / Telemetry STEVEN.Q8H (08/08/17 21:41) Activity Oob With Assistance (08/08/17 21:41) Notify Dr: Other (08/08/17 21:41) Labs Laboratory Tests Test 08/08/17 17:20 White Blood Count 6.6 TH/MM3 Red Blood Count 4.24 MIL/MM3 Hemoglobin 11.4 GM/DL Hematocrit 34.8 % Mean Corpuscular Volume 82.0 FL Mean Corpuscular Hemoglobin 27.0 PG Mean Corpuscular Hemoglobin Concent 32.9 % Red Cell Distribution Width 16.8 % Platelet Count 280 TH/MM3 Mean Platelet Volume 7.0 FL Neutrophils (%) (Auto) 54.1 % Lymphocytes (%) (Auto) 26.0 % Monocytes (%) (Auto) 13.0 % Eosinophils (%) (Auto) 6.0 % Basophils (%) (Auto) 0.9 % Neutrophils # (Auto) 3.5 TH/MM3 Lymphocytes # (Auto) 1.7 TH/MM3 Monocytes # (Auto) 0.8 TH/MM3 Eosinophils # (Auto) 0.4 TH/MM3 Basophils # (Auto) 0.1 TH/MM3 CBC Comment AUTO DIFF Differential Comment AUTO DIFF CONFIRMED Prothrombin Time 10.3 SEC Prothromb Time International Ratio 1.0 RATIO Activated Partial Thromboplast Time 24.5 SEC Blood Urea Nitrogen 26 MG/DL Creatinine 1.54 MG/DL Random Glucose 109 MG/DL Total Protein 6.8 GM/DL Albumin 3.4 GM/DL Calcium Level 7.8 MG/DL Magnesium Level 2.5 MG/DL Alkaline Phosphatase 61 U/L Aspartate Amino Transf (AST/SGOT) 17 U/L Alanine Aminotransferase (ALT/SGPT) 21 U/L Total Bilirubin 0.2 MG/DL Sodium Level 140 MEQ/L Potassium Level 3.6 MEQ/L Chloride Level 108 MEQ/L Carbon Dioxide Level 24.2 MEQ/L Anion Gap 8 MEQ/L Estimat Glomerular Filtration Rate 44 ML/MIN Troponin I 0.04 NG/ML B-Type Natriuretic Peptide 212 PG/ML [facility] Medical Record Reviewed: Yes Supervised Visit with MOISES: No Interpretation(s) bnp: 212; trop: 0.04, noty elevated EKG normal sinus rhythm rate 68 QS inferiorly age-indeterminate no acute ST elevation nonspecific ST segment flattening/mild depression laterally Last Impressions Chest X-Ray 08/08/171816 Signed Impressions: Service Date/Time: Tuesday, August 08, 2017 18:46 - CONCLUSION: No acute findings. No focal infiltrates seen. Burt Arango MD CBC & BMP Diagram 08/08/17 17:20 Total Protein 6.8, Albumin 3.4, Calcium Level 7.8 L, Magnesium Level 2.5, Alkaline Phosphatase 61, Aspartate Amino Transf (AST/SGOT) 17, Alanine Aminotransferase (ALT/SGPT) 21, Total Bilirubin 0.2 Vital Signs Date Time Temp Pulse Resp B/P (MAP) Pulse Ox O2 Delivery O2 Flow Rate FiO2 08/08/17 20:45 58 16 110/63 (79) 98 Room Air 08/08/17 19:30 54 16 114/70 (85) 98 Room Air 08/08/17 18:21 20 98 Nasal Cannula 2.00 08/08/17 18:20 97 Nasal Cannula 2.00 08/08/17 18:17 98.4 68 20 138/70 (92) 98 Nasal Cannula 2.00 08/08/17 18:17 68 20 98 Nasal Cannula 2.00 08/08/17 18:10 98.4 67 18 135/66 (89) 98 Differential Diagnosis Accepted in transfer of care from Dr. Bradshaw; please refer to his dictation Narrative Course Accepted in transfer of care from Dr. Bradshaw; follow up pending diagnostics --rec plan for admission Labs resulted and found to be grossly within normal range except for renal insufficiency and mild elevation of BNP of 212 troponin I is within normal range at 0.04; chest x-ray reveals no acute process; flu test is negative Patient feels well although not back to his normal is aware of plan for observation admission and is agreeable to this Patient's case discussed with on-call Resident service will admit to Dr Cruz 's service per Dr Winn Physician Communication Physician Communication discussed with Dr Winn --obs to Dr Cruz's service Diagnosis Primary Impression: Generalized weakness Additional Impressions: Chest pain CAD (coronary artery disease) Admitting Information Admitting Physician Requests: Observation Esha Luque MD Aug 08, 2017 19:29
[2017-08-08 19:30] VITALS: BP 114/70; PULSE 54; RESP 16; O2SAT 98
[2017-08-08 20:45] VITALS: BP 110/63; PULSE 58; RESP 16; O2SAT 98
--- NOTE | 2017-08-08 21:28 | HHI.HP ---
[facility] Service Family Medicine Primary Care Physician Ernst Swenson M.D. Admission Diagnosis Diagnoses: International Travel<30 Days: No Contact w/Intl Traveler<30days: No Known Affected Area: No History of Present Illness Patient is a 77 year old male with history of CA s/p CABG and stent placement as well as CHF who presents to the [facility] ED via EMS for evaluation of chest pain and generalized weakness. He reports a left-sided chest pain that he has been experiencing on and off for the past 15 years. He first experienced the sharp, non-radiating, 5/10 pain a few months after open heart surgery ( approximately 15 years ago). He states that the pain comes and goes but is present throughout the day, most days. The pain is different than the pain the patient felt when suffering CA. He denies any associated symptoms such as diaphoresis, shortness of breath, nausea and vomiting. The patient says that nothing makes the pain better or worse. Nitroglycerin, given by EMS, did not alleviate symptoms. The patient reports a generalized weakness, which he has been experiencing on and off for the past year. The weakness has worsened over the past few weeks. The patient states that when he stands up from a seated position, he feels like his legs are going to give out, he has to brace himself and hold on to furniture to move around the house. Outside the house, he uses a walker. Patient reports several falls yesterday and one this evening. He did not hit his head or loose consciousness. He denies dizziness. The patient reports worsening shortness of breath with exertion over the past few weeks; patient even experiences temporary shortness of breath when sitting up from supine position. He has been using his nebulizer x4/day. He has had a dry, productive cough since April. He denies fever but reports chills. He denies nasal congestion. He reports minimal throat pain and hoarseness. Of note, patient was hospitalized with anemia (hemoglobin 5.5) and CHF exacerbation in April. Patient states that no cause of anemia was identified during visit. ECHO at that time showed ejection fraction in the range of 20-25% . (Rosie Berg MD R1) History of Present Illness Patient seen and examined during medicine rounds with the vice president planning team this morning. He states that he is feeling well and denies any chest pain or shortness of breath. He continues to feel somewhat weak and fatigued when he stands but was able to work with physical therapy this morning without issue. He says that his shortness of breath is something that is chronic but has slowly gotten worse over time. He has been using a nebulizer at home 4 times daily. He was able to tolerate breakfast this morning without issue and states that he feels relatively well. He would [facility] (Vikram Jo MD) Review of Systems Constitutional: COMPLAINS OF: Fatigue, Chills, DENIES: Diaphoretic episodes, Fever, Change in appetite Eyes: COMPLAINS OF: Blurred vision (baseline blurry vision; worsening over last two weeks ), DENIES: Diplopia, Vision loss, Double Vision Ears, nose, mouth, throat: COMPLAINS OF: Vertigo (on and off for years ), Throat pain (minimal ), Hoarseness, DENIES: Tinnitus, Hearing loss, Nasal discharge, Ear Pain, Running Nose Respiratory: COMPLAINS OF: Cough (dry, sometimes productive), Sputum production , Shortness of breath Cardiovascular: COMPLAINS OF: Chest pain, DENIES: Palpitations, Syncope, Lower Extremity Edema Gastrointestinal: COMPLAINS OF: Abdominal pain (baseline ), DENIES: Black stools, Bloody stools, Constipation, Diarrhea, Nausea, Vomiting Genitourinary: COMPLAINS OF: Nocturia, DENIES: Urinary frequency, Urinary incontinence, Testicular Swelling Musculoskeletal: COMPLAINS OF: Joint pain (baseline), Muscle aches (baseline ) , Stiffness Integumentary: DENIES: Nail changes, Rash Hematologic/lymphatic: DENIES: Bruising Neurologic: COMPLAINS OF: Headache (top of head with 'head numbness' ), Poor Balance, DENIES: Localized weakness, Paresthesias, Seizures, Speech Problems Psychiatric: COMPLAINS OF: Depression, Suicidal Ideation (once in awhile throughout life ) (Rosie Berg MD R1) Past Family Social History Past Medical History History of TIA Vertigo Carotid artery occlusion with stent placement CAD, history of CABG and stent placement CHF COPD Nocturia PAD HTN Anemia PTSD Distant history of alcohol use disorder Past Surgical History Cardiac stent placement - 2 years ago carotid endarterectomy - 08/19/2005 CABG - 2001 Eye implants - prior to CABG Abdominal hernia repair - 30 years ago Tonsillectomy and adenoidectomy in childhood Reported Medications Active Nebulizer 1 Mis Mis Ea .ROUTE DIRECTED [Albuterol-Ipratropium Neb] 1 AMPULE Nebu 1 Ampule INH Q6HR NEB Furosemide 20 Mg Tab 20 Mg PO DAILY Entresto (Sacubitril-Valsartan) 24-26 Mg Tab 1 Tab PO BID Reported Pantoprazole (Pantoprazole Sodium) 40 Mg Tab 40 Mg PO DAILY Metoprolol Tartrate 25 Mg Tab 25 Mg PO DAILY Simvastatin 20 Mg Tab 20 Mg PO DAILY Aspirin 325 Mg Tab 325 Mg PO DAILY (Rosie Berg MD R1) Allergies: Coded Allergies: No Known Allergies (Verified Allergy, Unknown, 05/14/17) Active Ordered Medications Current Medications Medications (Trade) Dose Ordered Sig/Gadiel Route Start Time Stop Time Status Last Admin (NS Flush) 2 ml UNSCH PRN IVF 08/08/17 18:30 (Aspirin) 325 mg DAILY PO 08/09/17 09:00 (Lasix) 20 mg DAILY PO 08/09/17 09:00 (Lopressor) 25 mg DAILY PO 08/09/17 09:00 (Protonix) 40 mg DAILY PO 08/09/17 09:00 (Entresto 24-26 Mg) 1 tab BID PO 08/09/17 09:00 (Pravachol) 40 mg DAILY PO 08/09/17 09:00 (Duoneb Neb) 1 ampule Q6HR NEB NEB 08/08/17 22:45 08/08/17 22:38 (NS Flush) 2 ml UNSCH PRN IV FLUSH 08/08/17 22:45 (NS Flush) 2 ml BID IV FLUSH 08/09/17 09:00 (Tylenol) 650 mg Q4H PRN PO 08/08/17 22:45 (Heparin Inj) 5,000 units Q8HR SQ 08/08/17 22:45 08/09/17 00:40 (Narcan Inj) 0.4 mg UNSCH PRN IV PUSH 08/08/17 22:45 (Desi-Colace) 1 tab BID PO 08/09/17 09:00 (Milk Of Magnesia Liq) 30 ml Q12H PRN PO 08/08/17 22:45 (Senokot) 17.2 mg Q12H PRN PO 08/08/17 22:45 (Dulcolax Supp) 10 mg DAILY PRN RECTAL 08/08/17 22:45 (Lactulose Liq) 30 ml DAILY PRN PO 08/08/17 22:45 (Albuterol Neb) 2.5 mg Q2HR NEB PRN INH 08/08/17 22:45 Family History Mother - at 81 years old; cardiac history Father - at 79 years old; colon cancer Brother - cardiac history Sister - thyroid disease Social History Alcohol - used to be heavy drinker; sober for over 52 years. Tobacco - used to smoke 1 pack/day; quit 50 years ago. Per record in 2015, patient quit in 2010. Drug - None. Lives alone. Retired. (Rosie Berg MD R1) Physical Exam Vital Signs Vital Signs Date Time Temp Pulse Resp B/P (MAP) Pulse Ox O2 Delivery O2 Flow Rate FiO2 08/08/17 19:30 54 16 114/70 (85) 98 Room Air 08/08/17 18:21 20 98 Nasal Cannula 2.00 08/08/17 18:20 97 Nasal Cannula 2.00 08/08/17 18:17 98.4 68 20 138/70 (92) 98 Nasal Cannula 2.00 08/08/17 18:17 68 20 98 Nasal Cannula 2.00 08/08/17 18:10 98.4 67 18 135/66 (89) 98 Physical Exam GENERAL: This is a well-nourished, well-developed patient, in no apparent distress. SKIN: Well-healed vertical incisions overlying sternum and horizontal incision over upper abdomen, midline. No rashes or ecchymoses noted. Warm and dry. HEAD: Atraumatic. Normocephalic. EYES: Pupils equal round and reactive. Extraocular motions intact. No scleral icterus. No injection or drainage. ENT: Nose without bleeding, purulent drainage or septal hematoma. Throat without erythema, tonsillar hypertrophy or exudate. Airway patent. NECK: Trachea midline. No JVD or lymphadenopathy. CARDIOVASCULAR: Regular rate and rhythm without murmurs, gallops, or rubs. RESPIRATORY: Audible wheezes. Inspiratory wheezes throughout left lung albert noted on auscultation. Right lung albert clear to auscultation. GASTROINTESTINAL: Abdomen soft, minimally tender upon palpation of right upper quadrant and left flank. Muscular defect noted along upper abdomen, midline incision site. No hepato-splenomegaly, or palpable masses. No guarding. MUSCULOSKELETAL: Extremities without cyanosis, or edema. No joint tenderness, effusion, or edema noted. No calf tenderness. NEUROLOGICAL: Awake and alert. Cranial nerves II through XII intact. Motor and sensory grossly within normal limits. Normal speech. Laboratory Laboratory Tests Test 08/08/17 17:20 White Blood Count 6.6 Red Blood Count 4.24 Hemoglobin 11.4 Hematocrit 34.8 Mean Corpuscular Volume 82.0 Mean Corpuscular Hemoglobin 27.0 Mean Corpuscular Hemoglobin Concent 32.9 Red Cell Distribution Width 16.8 Platelet Count 280 Mean Platelet Volume 7.0 Neutrophils (%) (Auto) 54.1 Lymphocytes (%) (Auto) 26.0 Monocytes (%) (Auto) 13.0 Eosinophils (%) (Auto) 6.0 Basophils (%) (Auto) 0.9 Neutrophils # (Auto) 3.5 Lymphocytes # (Auto) 1.7 Monocytes # (Auto) 0.8 Eosinophils # (Auto) 0.4 Basophils # (Auto) 0.1 CBC Comment AUTO DIFF Differential Comment AUTO DIFF CONFIRMED Prothrombin Time 10.3 Prothromb Time International Ratio 1.0 Activated Partial Thromboplast Time 24.5 Blood Urea Nitrogen 26 Creatinine 1.54 Random Glucose 109 Total Protein 6.8 Albumin 3.4 Calcium Level 7.8 Magnesium Level 2.5 Alkaline Phosphatase 61 Aspartate Amino Transf (AST/SGOT) 17 Alanine Aminotransferase (ALT/SGPT) 21 Total Bilirubin 0.2 Sodium Level 140 Potassium Level 3.6 Chloride Level 108 Carbon Dioxide Level 24.2 Anion Gap 8 Estimat Glomerular Filtration Rate 44 Troponin I 0.04 B-Type Natriuretic Peptide 212 Date/Time Source Procedure Growth Status 08/08/17 20:00 Nasal Washing Influenza Types A,B Antigen (MARVEL) - Final NEGATIVE FOR FLU A AND B ANTIGEN.... Complete (Rosie Berg MD R1) Physical Exam GENERAL: Elderly and pleasant male, sitting up in bed in no obvious distress SKIN: Well-healed vertical incisions overlying sternum and horizontal incision over upper abdomen, midline. CARDIOVASCULAR: Regular rate and rhythm without murmurs, gallops, or rubs. RESPIRATORY: Clear to auscultation bilaterally with no increased work of breathing GASTROINTESTINAL: Abdomen soft, nontender and nondistended MUSCULOSKELETAL: Extremities without cyanosis, or edema. NEUROLOGICAL: Awake and alert. (Vikram Jo MD) Result Diagram: 08/08/17171908/08/17 1720 Septic Shock Reassessment Septic shock perfusion: reassessment completed (Rosie Berg MD R1) Caprini VTE Risk Assessment Caprini VTE Risk Assessment: Mod/High Risk (score >= 2) Caprini Risk Assessment Model Point Value = 1 Point Value = 2 Point Value = 3 Point Value = 5 Age 41-60 Minor surgery BMI > 25 kg/m2 Swollen legs Varicose veins or History of unexplained or recurrent spontaneous Oral contraceptives or hormone replacement Sepsis (< 1 month) Serious lung disease, including pneumonia (< 1 month) Abnormal pulmonary function Acute myocardial infarction Congestive heart failure (< 1 month) History of inflammatory bowel disease Medical patient at bed rest Age 61-74 Arthroscopic surgery Major open surgery (> 45 min) Laparoscopic surgery (> 45 min) Malignancy Confined to bed (> 72 hours) Immobilizing plaster cast Central venous access Age >= 75 History of VTE Family history of VTE Factor V Leiden Prothrombin [id number] Lupus anticoagulant Anticardiolipin antibodies Elevated serum homocysteine Heparin-induced thrombocytopenia Other congenital or acquired thrombophilia Stroke (< 1 month) Elective arthroplasty Hip, pelvis, or leg fracture Acute spinal cord injury (< 1 month) Prophylaxis Regimen Total Risk Factor Score Risk Level Prophylaxis Regimen 0-1 Low Early ambulation 2 Moderate Order ONE of the following: *Sequential Compression Device (SCD) *Heparin 5000 units SQ BID 3-4 Higher Order ONE of the following medications: *Heparin 5000 units SQ TID *Enoxaparin/Lovenox 40 mg SQ daily (WT < 150 kg, CrCl > 30 mL/min) *Enoxaparin/Lovenox 30 mg SQ daily (WT < 150 kg, CrCl > 10-29 mL/min) *Enoxaparin/Lovenox 30 mg SQ BID (WT < 150 kg, CrCl > 30 mL/min) AND/OR *Sequential Compression Device (SCD) 5 or more Highest Order ONE of the following medications: *Heparin 5000 units SQ TID (Preferred with Epidurals) *Enoxaparin/Lovenox 40 mg SQ daily (WT < 150 kg, CrCl > 30 mL/min) *Enoxaparin/Lovenox 30 mg SQ daily (WT < 150 kg, CrCl > 10-29 mL/min) *Enoxaparin/Lovenox 30 mg SQ BID (WT < 150 kg, CrCl > 30 mL/min) AND *Sequential Compression Device (SCD) (Rosie Berg MD R1) Assessment and Plan Assessment and Plan Patient is a 77 year old male with history of CA s/p CABG and stent placement as well as CHF who present to the [facility] ED via EMS for evaluation of chest pain and generalized weakness. Code Status DNR Discussed Condition With Dr. Winn (Rosie Berg MD R1) Attending Attestation THIS CASE WAS DISCUSSED WITH THE RESIDENT PHYSICIAN. I HAVE REVIEWED THE RECORD AND AGREE WITH THE ABOVE NOTE AND PLAN OF CARE WAS DISCUSSED. I HAVE AUTHORIZED THE ORDER FOR PLACEMENT IN OUT-PATIENT OBSERVATION STATUS. (Vikram Jo MD) Problem List: (1) Generalized weakness ICD Codes: R53.1 - Weakness Status: Acute Plan: The patient reports a generalized weakness, which he has been experiencing on and off for the past year. The weakness has worsened over the past few weeks. The patient states that when he stands up from a seated position , he feels like his legs are going to give out, he has to brace himself and hold on to furniture to move around the house. Outside the house, he uses a walker. Patient reports several falls yesterday and one this evening. He did not hit his head or loose consciousness. Differential Diagnosis: * Secondary to infectious process, likely viral upper respiratory versus anemia versus deconditioning versus orthostatic hypotension versus CHF. Labs/Microbiology: * WBC 6.6, RBC 4.24, Hemoglobin 11.4, Hct 34.8, MCV 82 * BNP 212 * Urine yellow in color, specific gravity 1.019, otherwise negative, no culture indicated * Influenza A/B antigen negative Studies/Imaging: * Chest X-ray: no acute findings. No focal infiltrates seen. Orders: * Vitals q4hr. * Orthostatic blood pressure. * Continuous telemetry. * Activity OOB with Assistance. * Repeat CBC in a.m. (2) Shortness of breath ICD Codes: R06.02 - Shortness of breath Status: Acute Plan: The patient reports worsening shortness of breath with exertion over the past few weeks; patient even experiences temporary shortness of breath when sitting up from supine position. He has been using his nebulizer x4/day. He has had a dry, productive cough since April. He denies fever but reports chills. He denies nasal congestion. He reports minimal throat pain and hoarseness. Differential Diagnosis: * Secondary to infectious process, likely viral upper respiratory versus COPD exacerbation versus CHF versus CA versus anemia versus deconditioning. Labs/Microbiology: * WBC 6.6, RBC 4.24, Hemoglobin 11.4, Hct 34.8, MCV 82 * Urine yellow in color, specific gravity 1.019, otherwise negative, no culture indicated * Influenza A/B antigen negative * Carbon dioxide 24.2, anion gap 8. * BNP 212. * Troponin 0.04 with repeat 0.04. Studies/Imaging: * Chest X-ray: no acute findings. No focal infiltrates seen. * EKG: Inferior myocardial infarction with non-specific ST/T wave changes; compared to previous tracing (05/14/17), ST/T wave changes more prominent today. Orders: * Vitals q4hr. * Continuous telemetry. * Troponin x3 q6hr. * EKG x3 q6hr. * Repeat CBC and BMP in a.m. Medications: * Continue home Duoneb 1 ampule q6hr NEB. * Albuterol 2.5mg q2hr NEB PRN Shortness of Breath. * Continue home Furosemide 20mg daily PO. * Continue home Entresto 1 tab BID PO. (3) Symptoms of upper respiratory infection (URI) ICD Codes: R09.89 - Other specified symptoms and signs involving the circulatory and respiratory systems Status: Acute Plan: * See Plan Shortness of Breath. (4) Chest pain ICD Codes: R07.9 - Chest pain, unspecified Status: Chronic Plan: Patient with extensive cardiac history. He reports a left-sided chest pain that he has been experiencing on and off for the past 15 years. He first experiences the sharp, non-radiating, 5/10 pain a few months after open heart surgery (approximately 15 years ago). He states that the pain comes and goes but is present throughout the day, most days. The pain is different than the pain the patient felt when suffering CA. He denies any associated symptoms such as diaphoresis, shortness of breath, nausea and vomiting. The patient says that nothing makes the pain better or worse. Nitroglycerin, given by EMS, did not alleviate symptoms. Differential Diagnosis: * Unlikely acute process due to duration of symptom. Regardless, must rule out CA/ACS. Labs/Microbiology: * Troponin 0.04 with repeat 0.04. Studies/Imaging: * Chest X-ray: no acute findings. No focal infiltrates seen. * EKG: Inferior myocardial infarction with non-specific ST/T wave changes; compared to previous tracing (05/14/17), ST/T wave changes more prominent today. Orders: * Vitals q4hr. * Continuous telemetry. * Troponin x3 q6hr. * EKG x3 q6hr. Medications: * Continue home Metoprolol 25mg daily PO. * Continue home Furosemide 20mg daily PO. * Continue home Entresto 1 tab BID PO. * Continue home Aspirin 325mg daily PO. * Continue home Pravastatin 40mg daily PO. (5) Anemia ICD Codes: D64.9 - Anemia, unspecified Status: Chronic Plan: On admission, Hgb 11.4 and Hct 34.8. Hospitalized in April for Hgb of 5.5; received 3 units of blood during visit. Reason for anemia was never identified. Endoscopy/colonoscopy with no evidence of acute bleed. Weight unchanged. Differential Diagnosis: * Unknown; Hgb improved from April. Labs/Microbiology: * Hgb 11.4 as compared to Hgb of 9.7 at time of discharge in April. Orders: * Vitals q4hr. * Repeat CBC in a.m. (6) Elevated serum creatinine ICD Codes: R79.89 - Other specified abnormal findings of blood chemistry Status: Acute Plan: On admission, Cr 1.54 and BUN 26. During last admission, Cr ranged from 1.22-1.44 and BUN ranged from 11-22. Differential Diagnosis: * Dehydration. Labs/Microbiology: * Urine yellow in color, specific gravity 1.019, otherwise negative, no culture indicated Orders: * Repeat BMP in a.m. Medications: * Encourage PO hydration. May consider adding IV fluids if Cr/BUN rise. Avoid fluid overload with history of CHF. (7) CHF (congestive heart failure) ICD Codes: I50.9 - Heart failure, unspecified Status: Chronic Plan: ECHO in April 2017 showed ejection fraction in the range of 20-25%. No evidence of fluid overload this admission. Differential Diagnosis: * CHF - compensating, stable. Labs/Microbiology: * BNP 212. Studies/Imaging: * Chest X-ray: no acute findings. No focal infiltrates seen. * EKG: Inferior myocardial infarction with non-specific ST/T wave changes; compared to previous tracing (05/14/17), ST/T wave changes more prominent today. Orders: * Vitals q4hr. * Continuous telemetry. * Troponin x3 q6hr. * EKG x3 q6hr. Medications: * Continue home Furosemide 20mg daily PO. * Continue home Entresto 1 tab BID PO. (8) Depression ICD Codes: F32.9 - Major depressive disorder, single episode, unspecified Status: Chronic Plan: Patient with history of PTSD. Admitted to recurrent suicidal ideations throughout life. Patient denies current plan but states that he is tired and ready "to go." * Monitor closely. (9) Fluid, Electrolyte, Nutrition, and Prophylaxis Status: Acute Plan: Fluid: * Patient tolerating PO. * Encourage PO hydration. Electrolyte: * Monitor and replete as necessary. Nutrition: * Heart Healthy Diet. DVT Prophylaxis: * Heparin 5,000 units q8hr SQ. * SCDs ordered. GI Prophylaxis: * Continue home Protonix 40mg daily PO. (Rosie Berg MD R1) Problem List: (1) Generalized weakness ICD Codes: R53.1 - Weakness Status: Acute Plan: The patient reports a generalized weakness, which he has been experiencing on and off for the past year. The weakness has worsened over the past few weeks. The patient states that when he stands up from a seated position , he feels like his legs are going to give out, he has to brace himself and hold on to furniture to move around the house. Outside the house, he uses a walker. Patient reports several falls yesterday and one this evening. He did not hit his head or loose consciousness. Physical therapy evaluated patient and recommended home PT No evidence of infection or electrolyte abnormality that could be causing symptoms Labs/Microbiology: * WBC 6.6, RBC 4.24, Hemoglobin 11.4, Hct 34.8, MCV 82 * BNP 212 * Urine yellow in color, specific gravity 1.019, otherwise negative, no culture indicated * Influenza A/B antigen negative Studies/Imaging: * Chest X-ray: no acute findings. No focal infiltrates seen. (2) Shortness of breath ICD Codes: R06.02 - Shortness of breath Status: Acute Plan: Patient with a history of sleep COPD and worsening shortness of breath ACS ruled out with troponins negative 3 Chest x-ray unremarkable EKG with no acute changes from previous reads Likely secondary to COPD Started on Symbicort twice daily Continue home duo nebs and albuterol Continue home furosemide and interested for CHF (3) Chest pain ICD Codes: R07.9 - Chest pain, unspecified Status: Chronic Plan: Chest pain without significant exacerbation -Cardiac troponins stable at 0.043 -EKG without any significant changes Chest x-ray within normal limits Plan to discharge home today Medications: * Continue home Metoprolol 25mg daily PO. * Continue home Furosemide 20mg daily PO. * Continue home Entresto 1 tab BID PO. * Continue home Aspirin 325mg daily PO. * Continue home Pravastatin 40mg daily PO. (4) Elevated serum creatinine ICD Codes: R79.89 - Other specified abnormal findings of blood chemistry Status: Acute Plan: On admission, Cr 1.54 and BUN 26. During last admission, Cr ranged from 1.22-1.44 and BUN ranged from 11-22. Differential Diagnosis: * Dehydration. Labs/Microbiology: * Urine yellow in color, specific gravity 1.019, otherwise negative, no culture indicated Orders: * Repeat BMP in a.m. Medications: * Encourage PO hydration. May consider adding IV fluids if Cr/BUN rise. Avoid fluid overload with history of CHF. (5) CHF (congestive heart failure) ICD Codes: I50.9 - Heart failure, unspecified Status: Chronic Plan: ECHO in April 2017 showed ejection fraction in the range of 20-25%. No evidence of fluid overload this admission. Differential Diagnosis: * CHF - compensating, stable. Labs/Microbiology: * BNP 212. Studies/Imaging: * Chest X-ray: no acute findings. No focal infiltrates seen. * EKG: Inferior myocardial infarction with non-specific ST/T wave changes; compared to previous tracing (05/14/17), ST/T wave changes more prominent today. Orders: * Vitals q4hr. * Continuous telemetry. * Troponin x3 q6hr. * EKG x3 q6hr. Medications: * Continue home Furosemide 20mg daily PO. * Continue home Entresto 1 tab BID PO. (6) Depression ICD Codes: F32.9 - Major depressive disorder, single episode, unspecified Status: Chronic Plan: No acute issues (7) Fluid, Electrolyte, Nutrition, and Prophylaxis Status: Acute Plan: Plan to discharge home today with home PT (Vikram Jo MD) Problem Qualifiers (1) Anemia: Qualified Codes: D64.9 - Anemia, unspecified Rosie Berg MD R1 Aug 08, 2017 21:28 Vikram Jo MD Aug 09, 2017 12:33
[2017-08-08] MEDS: RESP: ALBUTEROL 2.5 MG/IPRATROPIUM 0.5 MG NEB (SCH) NEB (22:38)
[2017-08-08] MEDS ORDERED: ACETAMINOPHEN 325 MG TAB PO PRN (22:45)
[2017-08-08] MEDS ORDERED: LACTULOSE SYRUP 20 GM/30 ML CUP PO PRN (22:45)
[2017-08-08] MEDS ORDERED: SENNOSIDES 8.6 MG TAB PO PRN (22:45)
[2017-08-08] MEDS ORDERED: MAGNESIUM HYDROXIDE SUSP 30 ML CUP PO PRN (22:45)
[2017-08-08] MEDS ORDERED: SODIUM CHLORIDE 0.9% FLUSH 10 ML FLUSH IV FLUSH PRN (22:45)
[2017-08-08] MEDS ORDERED: NALOXONE HCL 0.4 MG/ML AMP IV PUSH PRN (22:45)
[2017-08-08] MEDS ORDERED: RESP: ALBUTEROL 2.5 MG/3 ML NEB (PRN) INH (22:45)
[2017-08-08] MEDS ORDERED: BISACODYL 10 MG SUPP RECTAL PRN (22:45)
[2017-08-09] MEDS: HEPARIN SODIUM - SQ 10,000 UNITS/ML VIAL SQ SCH ×2 (00:40→07:53)
--- NOTE | 2017-08-09 00:40 | EKG ---
Date Performed: 08/08/2017 Time Performed: 18:11:48 PTAGE: 77 years EKG: Sinus rhythm INFERIOR MYOCARDIAL INFARCTION NON-SPECIFIC ST/T WAVE CHANGES ABNORMAL ECG PREVIOUS TRACING : 05/14/2017 20.44 Compared to prior tracing, previous ST/T wave changes are l ess prominent DOCTOR: Osmani Lr Interpretating Date/Time 08/09/2017 00:39:45
[2017-08-09 01:45] LABS: BILIRUBIN, URINE NEG (NEG); BLOOD, URINE NEG (NEG); GLUCOSE,URINE NEG (NEG); KETONE, URINE NEG (NEG); NITRITE,URINE NEG (NEG); PH, URINE 5.5 (5.0-8.5); URINE COLOR YELLOW (YELLW/STRAW); URINE LEUKOCYTE ESTERASE NEG (NEG)
[2017-08-09] MEDS: RESP: ALBUTEROL 2.5 MG/IPRATROPIUM 0.5 MG NEB (SCH) NEB ×2 (03:39→10:09)
[2017-08-09 03:50] VITALS: BP 129/66; PULSE 64; RESP 18; O2SAT 98
[2017-08-09 06:54] VITALS: BP_SYST 110; BP_SYST 167; BP_DIAS 64; BP_DIAS 83; PULSE 63; PULSE 72; RESP 18; TEMP 97.8; O2SAT 95
[2017-08-09 07:35] LABS: HEMOGLOBIN 11.5 GM/DL (13.0-17.0); MEAN CELL VOLUME 81.6 FL (80.0-100.0); MEAN CORPUSCULAR HEMOGLOBIN 26.9 PG (27.0-34.0); MEAN PLATELET VOLUME 6.8 FL (7.0-11.0); PLATELET COUNT 256 TH/MM3 (150-450); RED BLOOD COUNT 4.29 MIL/MM3 (4.50-5.90); RED CELL DISTRIBUTION WIDTH 16.4 % (11.6-17.2); WHITE BLOOD COUNT 6.1 TH/MM3 (4.0-11.0)
[2017-08-09 08:01] LABS: BICARBONATE 22.8 MEQ/L (21.0-32.0); CALCIUM 7.9 MG/DL (8.5-10.1); CREATININE 1.19 MG/DL (0.60-1.30)
[2017-08-09] MEDS ORDERED: METOPROLOL TARTRATE 25 MG TAB PO SCH (09:00)
[2017-08-09] MEDS ORDERED: PRAVASTATIN SOD 40 MG TAB PO SCH (09:00)
[2017-08-09] MEDS ORDERED: PANTOPRAZOLE SOD 40 MG DELAYED RELEASE TAB PO SCH (09:00)
[2017-08-09] MEDS ORDERED: SACUBITRIL/VALSARTAN 24 MG-26 MG TAB PO SCH (09:00)
[2017-08-09] MEDS ORDERED: DOCUSATE SODIUM 50 MG/SENNA 8.6 MG TAB PO SCH (09:00)
[2017-08-09] MEDS ORDERED: ASPIRIN 325 MG TAB PO SCH (09:00)
[2017-08-09] MEDS ORDERED: FUROSEMIDE 20 MG TAB PO SCH (09:00)
[2017-08-09] MEDS ORDERED: SODIUM CHLORIDE 0.9% FLUSH 10 ML FLUSH IV FLUSH SCH (09:00)
--- NOTE | 2017-08-09 09:40 | HHI.FF ---
Face to Face Verification Diagnosis: (1) Generalized weakness (2) CHF (congestive heart failure) Physical Therapy Order: Evaluate and Treat, Improve ambulation, Strength and gait training Home Health Nursing Order: Medical education Signs/symptoms of disease process CHF education Medication education-adverse effect I have seen patient Sean Ibarra on 08/09/17. My clinical findings support the need for the requested home health care services because: Ltd mobility - disease progression Patient has SOB Deconditioned w/ increased weakness Need for psychosocial assistance High risk of falls I certify that my clinical findings support that this patient is homebound because: Hx COPD- exertion dyspnea/weakness Unsteady gait/balance Need for psychosocial assistance Janett Truong MD, R3 Aug 09, 2017 09:40
[2017-08-09] MEDS ORDERED: SYMB80AE INH (09:42)
== END 2017-08-09 14:30 | disposition home or self-care (01) ==
LOC: NEPC 18:07 → NEDA 21:43 → NEPFCDU 22:30
PROVIDERS: ADMIT Family Medicine; ATTEND Family Medicine
DX: I50.9 Heart failure, unspecified (principal); I11.0 Hypertensive heart disease with heart failure; R53.1 Weakness; R01.1 Cardiac murmur, unspecified; I25.10 Atherosclerotic heart disease of native coronary artery without angina pectoris; J44.9 Chronic obstructive pulmonary disease, unspecified; I25.2 Old myocardial infarction; D64.9 Anemia, unspecified; F43.10 Post-traumatic stress disorder, unspecified; Z66 Do not resuscitate; Z87.891 Personal history of nicotine dependence; Z86.73 Personal history of transient ischemic attack (TIA), and cerebral infarction without residual deficits; Z95.1 Presence of aortocoronary bypass graft; Z95.5 Presence of coronary angioplasty implant and graft
CPT/HCPCS: 71045; 80048; 80053; 81001; 83735; 83880; 84484; 85025; 85027; 85610; 85730; 87804; 93005; 94640; 94664; 96372; 97161; 99285; G0378; G8987; G8988; J1644

== ENCOUNTER 2017-08-28 19:33 | Inpatient (IN) | payer OTHER, MEDICARE ==
[~2017-08-28] VITALS: Ht 170.2 cm; Wt 98.0 kg
[~2017-08-28 19:33] MED LIST changes: -FERR325T18 PO; -METO1TAB42 PO; +METO25TA3 PO; +PANT40TA3 PO; +SIMV20TA PO; +SYMB80AE INH
[2017-08-28 19:39] VITALS: BP 116/59; PULSE 73; RESP 20; TEMP 98.1; O2SAT 93
[2017-08-28] MEDS ORDERED: NITROGLYCERIN 2% OINT 1 GM PACKET TOP ONE (19:45)
[2017-08-28] MEDS ORDERED: SODIUM CHLORIDE 0.9% FLUSH 10 ML FLUSH IVF PRN (19:45)
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
[2017-08-28 19:50] VITALS: BP_SYST 102; BP_SYST 116; BP_DIAS 59; BP_DIAS 61
[2017-08-28 19:53] VITALS: PULSE 74; RESP 20; O2SAT 98
[2017-08-28 19:58] VITALS: BP 102/61; PULSE 69; RESP 20; O2SAT 98
[2017-08-28 20:14] LABS: AUTOMATED NEUTROPHIL # 6.4 TH/MM3 (1.8-7.7); BASOPHIL % 0.5 % (0.0-2.0); EOSINOPHIL # 0.1 TH/MM3 (0-0.4); EOSINOPHIL % 0.6 % (0.0-4.0); HEMATOCRIT 35.8 % (39.0-51.0); HEMOGLOBIN 11.8 GM/DL (13.0-17.0); LYMPH % 14.8 % (9.0-44.0); LYMPHOCYTE # 1.3 TH/MM3 (1.0-4.8); MEAN CELL VOLUME 79.8 FL (80.0-100.0); MEAN CORPUSCULAR HEMOGLOBIN 26.4 PG (27.0-34.0); MEAN CORPUSCULAR HGB CONC 33.1 % (32.0-36.0); MEAN PLATELET VOLUME 6.6 FL (7.0-11.0); MONO % 9.1 % (0.0-8.0); MONOCYTE # 0.8 TH/MM3 (0-0.9); PLATELET COUNT 300 TH/MM3 (150-450); RED BLOOD COUNT 4.49 MIL/MM3 (4.50-5.90); RED CELL DISTRIBUTION WIDTH 16.4 % (11.6-17.2); WHITE BLOOD COUNT 8.5 TH/MM3 (4.0-11.0)
[2017-08-28 20:25] LABS: PROTHROMBIN TIME - PATIENT 10.5 SEC (9.8-11.6)
[2017-08-28 20:35] LABS: ALBUMIN 3.7 GM/DL (3.4-5.0); AST (GOT) 23 U/L (15-37); BLOOD UREA NITROGEN 26 MG/DL (7-18); CALCIUM 9.1 MG/DL (8.5-10.1); CHLORIDE 104 MEQ/L (98-107); CREATININE 1.62 MG/DL (0.60-1.30); GLOMERULAR FILTRATION RATE 42 ML/MIN (>89); GLUCOSE,RANDOM 97 MG/DL (74-106); MAGNESIUM 2.2 MG/DL (1.5-2.5); SODIUM (NA) 139 MEQ/L (136-145)
--- NOTE | 2017-08-28 20:35 | RADRPT ---
EXAM DATE/TIME: 08/28/2017 20:07 [facility] COMPARISON: CHEST PA & LAT, September 28, 2014, 10:28. INDICATIONS : Bilateral chest pain and shortness of breath. MEDICAL HISTORY : Chronic obstructive pulmonary disease. Congestive heart failure. Myocardial infarction. SURGICAL HISTORY : CABG. Coronary artery stent. ENCOUNTER: Initial ACUITY: 1 day PAIN SCORE: 4/10 LOCATION: Bilateral chest FINDINGS: A moderate-sized hiatal hernia is noted. The heart is stable. Median sternotomy wires are noted statu s post cardiac surgery. The pulmonary vascular pattern is normal. The lungs are clear. Degenerative c hanges are noted throughout the thoracic spine. CONCLUSION: 1. Moderate-sized hiatal hernia. 2. No acute cardiopulmonary disease. Zain Bowser MD on August 28, 2017 at 20:34 Board Certified Radiologist. This report was verified electronically.
[2017-08-28 20:40] LABS: ALKALINE PHOSPHATASE 73 U/L (45-117); ALT (GPT) 26 U/L (12-78); TOTAL BILIRUBIN ADULT 0.2 MG/DL (0.2-1.0); TOTAL PROTEIN 7.3 GM/DL (6.4-8.2)
[2017-08-28 20:51] LABS: TROPONIN I 1.26 NG/ML (0.02-0.05)
[2017-08-28] MEDS ORDERED: HEPARIN SODIUM - IV 10,000 UNITS/10 ML VIAL IV ONE (21:00)
[2017-08-28] MEDS ORDERED: HEPARIN-D5W 25,000 U/250 ML 250 ML IV PRN (21:00)
[2017-08-28] MEDS ORDERED: SODIUM CHLORIDE 0.9% FLUSH 10 ML FLUSH IV FLUSH PRN (21:15)
[2017-08-28] MEDS ORDERED: BISACODYL 10 MG SUPP RECTAL PRN (21:15)
[2017-08-28] MEDS ORDERED: NITROGLYCERIN 2% OINT 1 GM PACKET TOPICAL PRN (21:15)
[2017-08-28] MEDS ORDERED: SENNOSIDES 8.6 MG TAB PO PRN (21:15)
[2017-08-28] MEDS ORDERED: ACETAMINOPHEN/HYDROcodone 325 MG/5 MG TAB PO PRN (21:15)
[2017-08-28] MEDS ORDERED: ONDANSETRON HCL 4 MG/2 ML VIAL IVP PRN (21:15)
[2017-08-28] MEDS ORDERED: ACETAMINOPHEN 325 MG TAB PO PRN (21:15)
[2017-08-28] MEDS ORDERED: LACTULOSE SYRUP 20 GM/30 ML CUP PO PRN (21:15)
[2017-08-28] MEDS ORDERED: MAGNESIUM HYDROXIDE SUSP 30 ML CUP PO PRN (21:15)
[2017-08-28] MEDS ORDERED: MORPHINE SULFATE 2 MG/ML INJ IV PUSH PRN (21:15)
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
[2017-08-28 21:23] VITALS: BP 128/66; PULSE 60; RESP 20; O2SAT 98
[2017-08-28 22:08] VITALS: BP 145/85; PULSE 65; RESP 20; O2SAT 100
[2017-08-28] MEDS: SODIUM CHLOR 0.9% 1000 ML INJ 1,000 ML IV SCH (22:12)
[2017-08-29] VITALS (19 sets, daily range): BP systolic 95–163; BP diastolic 50–86; PULSE 53–71; RESP 15–22; TEMP 97.5–98.2; O2SAT 97–100
[2017-08-29] MEDS ORDERED: HEPARIN SODIUM - IV 10,000 UNITS/10 ML VIAL IV PRN ×2 (03:00)
[2017-08-29] MEDS: RESP: ALBUTEROL 2.5 MG/IPRATROPIUM 0.5 MG NEB (PRN) NEB ×3 (03:39→19:49)
[2017-08-29] MEDS ORDERED: CHLORHEXIDINE GLUCONATE 2 % 1 PACK (2 CLOTHS)(extra cloths) TOPICAL PRN (06:45)
[2017-08-29 06:46] LABS: ALBUMIN 3.4 GM/DL (3.4-5.0); AST (GOT) 24 U/L (15-37); BICARBONATE 25.6 MEQ/L (21.0-32.0); BLOOD UREA NITROGEN 24 MG/DL (7-18); CALCIUM 8.5 MG/DL (8.5-10.1); CHLORIDE 106 MEQ/L (98-107); CREATININE 1.35 MG/DL (0.60-1.30); GLOMERULAR FILTRATION RATE 51 ML/MIN (>89); GLUCOSE,RANDOM 102 MG/DL (74-106); SODIUM (NA) 141 MEQ/L (136-145)
[2017-08-29 06:52] LABS: ALKALINE PHOSPHATASE 66 U/L (45-117); ALT (GPT) 24 U/L (12-78); TOTAL BILIRUBIN ADULT 0.2 MG/DL (0.2-1.0)
[2017-08-29 07:06] LABS: TROPONIN I 1.07 NG/ML (0.02-0.05)
[2017-08-29] MEDS: SODIUM CHLOR 0.9% 1000 ML INJ 1,000 ML IV SCH ×3 (07:13→23:13)
[2017-08-29] MEDS: PANTOPRAZOLE SOD 40 MG DELAYED RELEASE TAB PO SCH (08:42)
[2017-08-29] MEDS: PRAVASTATIN SOD 40 MG TAB PO SCH (08:42)
[2017-08-29] MEDS: SODIUM CHLORIDE 0.9% FLUSH 10 ML FLUSH IV FLUSH SCH ×3 (08:43→21:00)
[2017-08-29] MEDS: BUDESONIDE-FORMOTEROL 80/4.5 MCG INHALER INH SCH ×2 (08:43→23:26)
[2017-08-29] MEDS: DOCUSATE SODIUM 50 MG/SENNA 8.6 MG TAB PO SCH ×2 (08:52→21:00)
[2017-08-29] MEDS ORDERED: METOPROLOL TARTRATE 25 MG TAB PO SCH (09:00)
[2017-08-29] MEDS ORDERED: ASPIRIN 325 MG TAB PO SCH ×2 (09:00→11:45)
--- NOTE | 2017-08-29 09:08 | EKG ---
Date Performed: 08/28/2017 Time Performed: 19:41:57 PTAGE: 77 years EKG: Sinus rhythm INFERIOR MYOCARDIAL INFARCTION ABNORMAL ECG PREVIOUS TRACING : 08/08/2017 18.11 DOCTOR: Kendell Buchanan Interpretating Date/Time 08/29/2017 09:08:05
[2017-08-29] MEDS ORDERED: diphenhydrAMINE HCL 50 MG CAP PO SCH (11:45)
[2017-08-29 13:04] LABS: AUTOMATED NEUTROPHIL # 4.4 TH/MM3 (1.8-7.7); BASOPHIL # 0.1 TH/MM3 (0-0.2); EOSINOPHIL # 0.1 TH/MM3 (0-0.4); EOSINOPHIL % 2.2 % (0.0-4.0); HEMOGLOBIN 12.2 GM/DL (13.0-17.0); LYMPH % 19.9 % (9.0-44.0); LYMPHOCYTE # 1.3 TH/MM3 (1.0-4.8); MEAN CELL VOLUME 81.2 FL (80.0-100.0); MEAN CORPUSCULAR HEMOGLOBIN 26.7 PG (27.0-34.0); MEAN CORPUSCULAR HGB CONC 32.9 % (32.0-36.0); MEAN PLATELET VOLUME 7.1 FL (7.0-11.0); MONO % 10.5 % (0.0-8.0); MONOCYTE # 0.7 TH/MM3 (0-0.9); NEUT % 66.4 % (16.0-70.0); PLATELET COUNT 261 TH/MM3 (150-450); RED BLOOD COUNT 4.56 MIL/MM3 (4.50-5.90); RED CELL DISTRIBUTION WIDTH 16.4 % (11.6-17.2); WHITE BLOOD COUNT 6.6 TH/MM3 (4.0-11.0)
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
[2017-08-29 14:20] LABS: % SATURATION IRON PROFILE 6.9 % (20-50); IRON (FE) 31 MCG/DL (65-175); TOTAL IRON BINDING CAPACITY 448 MCG/DL (250-450)
[2017-08-29 14:23] LABS: FERRITIN 8 NG/ML (26-388)
[2017-08-29] MEDS: NITROGLYCERIN 2% OINT 1 GM PACKET TOPICAL SCH ×2 (14:53→23:29)
[2017-08-29] MEDS ORDERED: HEPARIN-NS/PF FLUSH BAG 2,000 ML IV FLUSH ONE (15:31)
--- NOTE | 2017-08-29 15:32 | PD.PSY.CON ---
Provisional Diagnosis Admission Date Aug 28, 2017 at 21:15 History of Present Illness Service Psychiatry Consult Requested By ER team Reason for Consult Depression Primary Care Physician Ernst Swenson M.D. Past Family Social History Coded Allergies: No Known Allergies (Verified Allergy, Unknown, 05/14/17) Active Scripts Budesonide-Formoterol Inh (Symbicort Inh) 80-4.5 Mcg/Act Aero, 1 PUFF INH Q12HR for Asthma Management, #1 INHALER 0 Refills Prov:Janett Truong MD, R3 08/09/17 [Albuterol-Ipratropium Neb] 1 AMPULE NEBU No Conflict Check, 1 AMPULE INH Q6HR NEB, #120 0 Refills Prov:Violette Gibbs MD, R1 05/17/17 Furosemide (Furosemide) 20 Mg Tab, 20 MG PO DAILY, #30 TAB Prov:Violette Gibbs MD, R1 05/17/17 Sacubitril-Valsartan (Entresto) 24-26 Mg Tab, 1 TAB PO BID, #60 TAB Prov:Violette Gibbs MD, R1 05/17/17 Reported Medications Pantoprazole (Pantoprazole) 40 Mg Tab, 40 MG PO DAILY for Reflux, TAB 0 Refills 08/08/17 Metoprolol Tartrate (Metoprolol Tartrate) 25 Mg Tab, 25 MG PO DAILY, TAB 0 Refills 08/08/17 Simvastatin (Simvastatin) 20 Mg Tab, 20 MG PO DAILY for Cholesterol Management, TAB 0 Refills 08/08/17 Aspirin (Aspirin) 325 Mg Tab, 325 MG PO DAILY, #30 TAB 0 Refills 05/14/17 Discontinued Scripts Nebulizer (Nebulizer) 1 Mis Mis, EA .ROUTE DIRECTED for Breathing Treatment, #1 0 Refills Prov:Violette Gibbs MD, R1 05/17/17 Current Medications Medications (Trade) Dose Ordered Sig/Gaidel Route Start Time Stop Time Status Last Admin (Heparin Inj) 5,000 units UNSCH PRN IV 08/29/17 03:00 (Heparin Inj) 2,500 units UNSCH PRN IV 08/29/17 03:00 Heparin Sodium/ Dextrose 250 ml @ 10.8 mls/hr TITRATE PRN IV 08/28/17 21:00 08/28/17 21:20 Sodium Chloride 1,000 ml @ 100 mls/hr Q10H IV 08/28/17 21:13 08/28/17 22:12 (NS Flush) 2 ml UNSCH PRN IV FLUSH 08/28/17 21:15 (NS Flush) 2 ml BID IV FLUSH 08/29/17 09:00 08/29/17 08:43 (Zofran Inj) 4 mg Q6H PRN IVP 08/28/17 21:15 (Tylenol) 650 mg Q6H PRN PO 08/28/17 21:15 ([place] 5-325 Mg) 1 tab Q4H PRN PO 08/28/17 21:15 (Morphine Inj) 2 mg Q3H PRN IV PUSH 08/28/17 21:15 (Desi-Colace) 1 tab BID PO 08/29/17 09:00 (Milk Of Magnesia Liq) 30 ml Q12H PRN PO 08/28/17 21:15 (Senokot) 17.2 mg Q12H PRN PO 08/28/17 21:15 (Dulcolax Supp) 10 mg DAILY PRN RECTAL 08/28/17 21:15 (Lactulose Liq) 30 ml DAILY PRN PO 08/28/17 21:15 (Nitroglycerin 2% Oint) 0.5 inch Q6HR PRN TOPICAL 08/28/17 21:15 (Aspirin) 325 mg DAILY PO 08/29/17 09:00 08/29/17 08:43 (Symbicort 80-4.5 Mcg Inh) 1 puff Q12HR INH 08/29/17 09:00 (Protonix) 40 mg DAILY PO 08/29/17 09:00 08/29/17 08:42 (Pravachol) 40 mg DAILY PO 08/29/17 09:00 08/29/17 08:42 (Duoneb Neb) 1 ampule Q4HR NEB PRN NEB 08/28/17 23:00 08/29/17 09:24 Miscellaneous Information Patient in critical care unit? Ass... [id number] .XX 08/29/17 06:45 08/29/17 06:45 (Chlorhexidine 2% Cloth) 3 pack DAILY@04 TOPICAL 08/30/17 04:00 09/03/17 04:01 (Chlorhexidine 2% Cloth) 3 pack UNSCH PRN TOPICAL 08/29/17 06:45 09/03/17 06:42 (Aspirin) 325 mg REGIONAL DIRECTOR PO 08/29/17 11:45 09/02/17 11:44 (Benadryl) 50 mg REGIONAL DIRECTOR PO 08/29/17 11:45 09/02/17 11:44 08/29/17 15:18 (Coreg) 3.125 mg Q12HR PO 08/29/17 21:00 (Nitroglycerin 2% Oint) 1 inch Q6HR TOPICAL 08/29/17 14:15 08/29/17 14:53 Physical Exam Vital Signs Vital Signs Date Time Temp Pulse Resp B/P (MAP) Pulse Ox O2 Delivery O2 Flow Rate FiO2 08/29/17 12:00 98.2 63 22 163/86 (111) 100 08/29/17 09:24 Nasal Cannula 1.00 I/O 08/29/17 08/29/17 08/30/17 08:00 16:00 00:00 Output Total 250 ml Balance -250 ml Lab Results Test 08/28/17 19:48 08/29/17 00:17 08/29/17 03:40 08/29/17 06:05 White Blood Count 8.5 TH/MM3 Red Blood Count 4.49 MIL/MM3 Hemoglobin 11.8 GM/DL Hematocrit 35.8 % Mean Corpuscular Volume 79.8 FL Mean Corpuscular Hemoglobin 26.4 PG Mean Corpuscular Hemoglobin Concent 33.1 % Red Cell Distribution Width 16.4 % Platelet Count 300 TH/MM3 Mean Platelet Volume 6.6 FL Neutrophils (%) (Auto) 75.0 % Lymphocytes (%) (Auto) 14.8 % Monocytes (%) (Auto) 9.1 % Eosinophils (%) (Auto) 0.6 % Basophils (%) (Auto) 0.5 % Neutrophils # (Auto) 6.4 TH/MM3 Lymphocytes # (Auto) 1.3 TH/MM3 Monocytes # (Auto) 0.8 TH/MM3 Eosinophils # (Auto) 0.1 TH/MM3 Basophils # (Auto) 0.0 TH/MM3 CBC Comment DIFF FINAL Differential Comment Prothrombin Time 10.5 SEC Prothromb Time International Ratio 1.0 RATIO Activated Partial Thromboplast Time 24.5 SEC 41.8 SEC Blood Urea Nitrogen 26 MG/DL 24 MG/DL Creatinine 1.62 MG/DL 1.35 MG/DL Random Glucose 97 MG/DL 102 MG/DL Total Protein 7.3 GM/DL 7.0 GM/DL Albumin 3.7 GM/DL 3.4 GM/DL Calcium Level 9.1 MG/DL 8.5 MG/DL Magnesium Level 2.2 MG/DL Alkaline Phosphatase 73 U/L 66 U/L Aspartate Amino Transf (AST/SGOT) 23 U/L 24 U/L Alanine Aminotransferase (ALT/SGPT) 26 U/L 24 U/L Total Bilirubin 0.2 MG/DL 0.2 MG/DL Sodium Level 139 MEQ/L 141 MEQ/L Potassium Level 3.9 MEQ/L 3.8 MEQ/L Chloride Level 104 MEQ/L 106 MEQ/L Carbon Dioxide Level 26.0 MEQ/L 25.6 MEQ/L Anion Gap 9 MEQ/L 9 MEQ/L Estimat Glomerular Filtration Rate 42 ML/MIN 51 ML/MIN Total Creatine Kinase 189 U/L Creatine Kinase MB 6.6 NG/ML Troponin I 1.26 NG/ML 1.43 NG/ML 1.07 NG/ML B-Type Natriuretic Peptide 227 PG/ML Test 08/29/17 06:40 08/29/17 12:06 Nasal Screen MRSA (PCR) MRSA DETECTED White Blood Count 6.6 TH/MM3 Red Blood Count 4.56 MIL/MM3 Hemoglobin 12.2 GM/DL Hematocrit 37.0 % Mean Corpuscular Volume 81.2 FL Mean Corpuscular Hemoglobin 26.7 PG Mean Corpuscular Hemoglobin Concent 32.9 % Red Cell Distribution Width 16.4 % Platelet Count 261 TH/MM3 Mean Platelet Volume 7.1 FL Neutrophils (%) (Auto) 66.4 % Lymphocytes (%) (Auto) 19.9 % Monocytes (%) (Auto) 10.5 % Eosinophils (%) (Auto) 2.2 % Basophils (%) (Auto) 1.0 % Neutrophils # (Auto) 4.4 TH/MM3 Lymphocytes # (Auto) 1.3 TH/MM3 Monocytes # (Auto) 0.7 TH/MM3 Eosinophils # (Auto) 0.1 TH/MM3 Basophils # (Auto) 0.1 TH/MM3 CBC Comment DIFF FINAL Differential Comment Activated Partial Thromboplast Time 40.7 SEC Iron Level 31 MCG/DL Total Iron Binding Capacity 448 MCG/DL Percent Iron Saturation 6.9 % Ferritin 8 NG/ML Assessment & Plan Problem List: (1) Depression ICD Codes: F32.9 - Major depressive disorder, single episode, unspecified Status: Chronic Assessment & Plan: Patient is intubated at this moment, unable to participate in the psychiatric evaluation. I will revisit the patient once he is able to cooperate. Assessment & Plan Estimated LOS: Orion Love MD Aug 29, 2017 15:32
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
[2017-08-29] MEDS ORDERED: MIDAZOLAM HCL 2 MG/2 ML VIAL ONE (15:50)
[2017-08-29] MEDS ORDERED: BIVALIRUDIN 250 MG VIAL ONE (16:24)
[2017-08-29] MEDS ORDERED: CLOPIDOGREL 300 MG TAB ONE (16:53)
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
--- NOTE | 2017-08-29 17:36 | CATHPROC ---
[facility] HIS Report Study Information Study Number Admission Scheduled Start Study Start [id number] Aug 28 2017 9:15PM 08/29/2017 Aug 29 2017 2:19PM [place] [facility] Cardiac Catheterization Admit Source Facility Department Emergency department [facility] - Manager Heavy Equipment Physician and Clinical Staff Initial Daniel Ardon Forest Botany Instructor David Reyes,ROC Forest Botany Instructor Ruth Martin,ROC Recorder Marylou Ugarte,RT(R) ScrSabrina Moya,RT(R) (BS) Procedures Performed Procedure Location (Site) Vessel Name Coronary Angiograms LCA Left Coronary Coronary Angiograms RCA Right Coronary Coronary Angiograms SVG-LAD Left Coronary Coronary Angiograms Gft. Stump 1 SVG Graft Coronary Angiograms Gft. Stump 2 SVG Graft Drug Eluting Inflatio CIRC Prox CIRC L Heart Cath PTCA CIRC Prox CIRC Wire insertion Fem Art (right) Femoral Art Equipment Time Signal Engineer Description Size Mfg Part Number Used/Scraped WIRE, BALANCE MIDDLEWEIGHT [id number] 16:26 [employer] 190CM Used 190CM *[id number] TRANSDUCER, TRUWAVE [id number] 15:19 MOSLEY CHERRY * Used W/STOCKCOCK *[id number] *[id number] [id number] *[id number] [id number] *[id number] [id number] *[id number] *[id number] 16:43 DAIG[employer] ANGIOSEAL, FR6 VIP FR 6 Used *[id number] WIRE, HYDROSTEER 150CM [id number] 16:15 DAIG/[employer] 150CM Used ANGLED GLIDE *[id number] 15:19 [employer] PACK, CCL CUSTOM * Used *[id number] 15:19 [employer] PACER PEN, SKIN DUAL W/ RULER * Used *[id number] BALLOON, 2.25 X 12MM [id number] 16:31 MED[employer] 12MM Used EUPHORA *[id number] 16:36 [employer] STENT, 2.75 12MM ROSALBA 2.75 12MM Used *[id number] 16:33 [employer] MEDICAL 30 PERLA INDEFLATOR Used *[id number] 15:19 [employer] MEDICAL SHEATH, FR6.5 PRELUDE 11CM FR 6.5 038ACT Used *[id number] 15:19 [employer] MEDICAL WIRE, 3MMJ .035 180CM 180CM Used *[id number] 15:19 NAMIC MANIFOLD, 4 PORT * Used *[id number] 15:19 [employer]ED OMNIPAQUE, 350 MG, 100ML 100ML [id number] Used [id number] 15:19 [employer] MEDICAL BLANKET,WARM AIR CCL * Used *[id number] Equipment Model, Serial, Lot Number and Expiration Data Description Model Number Serial Number Lot Number Expiration Date STENT, 2.75 12MM ROSALBA [id number] 12-15-2018 History: Current Medications Medication Dosage/Unit Route Frequency Last Date/Time Taken ASA CARVEDILOL History: Allergies Allergy Reaction No Known Allergies History: Risk Factors Hypertension Previous MN Yes Yes Prior Valve Prior PCI Prior PCIDate Prior CABG Prior CABGDate Surgery No Yes 09/26/2014 Yes 06/29/2001 Cerebrovascular Peripheral Artery Chronic Lung On Dialysis Diabetes Disease Disease Disease No No Yes Yes No History: Symptoms/Diagnosis Selection Items Chest pain History: Stress Tests Stress or Imaging Studies Performed No History: Other Disease Selection Items CAD COPD HTN History: Other Current Smoker Method Quit Packs a Day Years Used Pack Years No Cigarettes 50 Years Ago 1 20 20 Labs Hgb (g/dl) Hct (%) RBC (MIL/MM3) WBC (l/cumm) Platelets (thousands) 11.60-17.00 35.00-51.00 4.00-5.90 4.00-11.00 150.00-450.00 12.2 37 4.5 6.6 261 Glucose (mg/dl) BUN (mg/dl) Creatinine (mg/dl) BUN:Creatinine (1:x) 74.00-106.00 7.00-18.00 0.50-1.30 10.00-20.00 102 24 1.3 18.5 Na (meq/l) K (meq/l) Cl (meq/l) CO2 (mmol/L) 136.00-145.00 3.50-5.10 98.00-107.00 21.00-32.00 141 3.8 106 25.6 INR (PTT:PT) 0.90-1.10 1 Troponin I (ng/ml) CPK (u/l) CPK-MB (ng/ML) 0.02-0.05 26.00-308.00 0.50-3.60 1.07 189 6.6 Medication Medication Total Dose (Bolus/Oral) Medication Total Dosage/Unit 1% XYLOCAINE 20 mL ANGIOMAX BOLUS 15 mL NTG (IC) 200 mcg OXYGEN 2 l/min PLAVIX 600 mg VERSED 2 mg Medications (Bolus/Oral) Medication Time Given Dosage/Unit Administered By Reason VERSED 08/29/2017 3:51:12 PM 1 mg Jazmyne Martininda 1 mg VERSED given in lab by Ruth Martin RN in Right Antecubital via Peripheral IV. Ordered by Daniel Valente. VERSED 08/29/2017 3:52:24 PM 1 mg Mario, Ruth 1 mg VERSED given in lab by Ruth Martin RN in Right Antecubital via Peripheral IV. Ordered by Daniel Valente. 1% XYLOCAINE 08/29/2017 3:54:06 PM 20 mL Daniel Quach 20 mL 1% XYLOCAINE given in lab by Daniel Quach in Right Groin via Subcutaneous. OXYGEN 08/29/2017 4:01:31 PM 2 l/min Ruth Martin 2 l/min OXYGEN given in lab by Ruth Martin RN via Nasal. ANGIOMAX BOLUS 08/29/2017 4:26:34 PM 15 mL David Reyes 15 mL ANGIOMAX BOLUS given in lab by David Reyes RN in Right Antecubital via Peripheral IV. Ordere d by Daniel Quach. NTG (IC) 08/29/2017 4:34:01 PM 200 mcg Daniel Quach 200 mcg NTG (IC) given in lab by Daniel Quach in Right Groin via Intra-coronary. PLAVIX 08/29/2017 4:57:42 PM 600 mg Lakesha Martina 600 mg PLAVIX given in lab by Ruth Martin RN via Oral. Ordered by Daniel Quach. Medication (Drip) Medication Time Given Dosage/Unit Concentration/Unit Diluent (ml) Solution ANGIOMAX DRIP 08/29/2017 4:28:30 PM 1.751 mg/kg/hr 250 mg 50 NaCl .9 1.751 mg/kg/hr ANGIOMAX DRIP given in lab by David Reyes RN in Right Antecubital via Peripheral IV . Pump/Drip Flow = 34.5 ml/hr using NaCl .9 with a concentration of 250 mg in 50 ml. Ordered by Daniel Quach. ANGIOMAX DRIP 08/29/2017 4:55:46 PM 0 units/hr 0 STOPPED 0 units/hr ANGIOMAX DRIP STOPPED given in lab by Ruth Martin RN in Right Antecubital via Peripher al IV. Pump/Drip Flow = 34.5 ml/hr using [Solution Name]. Ordered by Daniel Quach. IV Solutions 08/29/2017 3:24:44 PM 50 mL (IV) NaCl .9 IV Solutions given in lab by David Reyes RN in Right Antecubital via Peripheral IV. Pump/Drip Flow using NaCl .9. Initial Case Assessment Cardiovascular HR Rhythm NIBP Chest Pain 57 SR 147/83 0 Edema Present Skin color Skin None Normal Warm Dry Circulatory - Right Pulses Dorsalis Pedis Femoral d 1 Scale (0,1,2,3,4,d) Circulatory - Left Pulses Dorsalis Pedis Femoral d 2 Scale (0,1,2,3,4,d) Neurological State Oriented to time-place- Alert Moves all extremities person Respiration - General Respiration Rate SpO2 (%) (B/min) 15 99 Chronological Log Time Study Chronological Log 15:24:34 Patient arrived via Bed. 15:24:34 Patient Name, D.O.B, / Armband Verified By R.N. 15:24:35 Consent signed by the physician and the patient and verified by the Manager Heavy Equipment staff. 15:24:35 Pre-op and post- op instructions given; patient acknowledges understanding of instructions. 15:24:36 Verbal Stimulation=2 Physical Stimulation=2 Airway=2 Respiration=2 TOTAL=8. (0=absent, 1=li mited, 2=present) 15:24:38 Presedation assessment performed by Manager Heavy Equipment RN. 15:24:39 Patient has been NPO for More than 6Hrs. 15:24:39 Skin Breakdown- none 15:24:40 Patient Warmer Placed on the Table. 15:24:41 Lizzie Prominences Protected 15:24:43 A # 20 IV was noted in the Antecubital (right). Grade = 0 15:24:43 A # 20 IV was noted in the Forearm (right). Grade = 0 15:24:44 IV Solutions given in lab by David Reyes, RN in Right Antecubital via Peripheral IV. Pump /Drip Flow using NaCl .9. 15:24:45 History and physical on the chart or being dictated. Assessment: Initial Case, HR=57 BPM, Rhythm=SR, JNVA=791/83 mmhg, Chest Pain=0, Edema=None, Col or=Normal, Skin = Warm, Dry Right Pulses: Sean Ped=d, Femoral=1 15:24:45 Left Pulses: Sean Ped=d, Femoral=2 Neurological: State=Alert, Ox3, WILEY Respiration: Resp=15 B/min, SpO2=99 % Vitals capture started with the following parameters, Patient=Adult, Interval=5 min, Initial Pr aurulp=311 mmHg, 15:29:42 Deflation Rate=5 mmHg, Cuff placed on Right Ankle 15:30:22 HR=54 bpm, IQMA=865/79 mmhg, SpO2=99.0 %, Resp=11 B/min 15:35:19 HR=52 bpm, LQKP=347/83 mmhg, SpO2=97.0 %, Resp=19 B/min 15:37:11 Bilateral groins prepped with 2% chlorhexidine, and draped after a 3 minute waiting time. 15:38:47 MD paged 15:39:39 Reference ECG taken 15:40:02 MD arrived. 15:40:08 Pressure channel 1 zeroed. 15:40:24 HR=55 bpm, TSQR=020/71 mmhg, SpO2=99.0 %, Resp=13 B/min 15:45:17 HR=53 bpm, QING=370/75 mmhg, SpO2=96.0 %, Resp=12 B/min 15:50:20 HR=54 bpm, HLVG=024/70 mmhg, SpO2=94.0 %, Resp=16 B/min Time Out. Correct patient, correct procedure, correct physician, power injector not loaded with contrast with surgical 15:51:00 team present. Time Out Concurred by MD and individual staff in procedure. 15:51:12 1 mg VERSED given in lab by Ruth Martin, RN in Right Antecubital via Peripheral IV. Orde red by Daniel Quach. 15:52:24 1 mg VERSED given in lab by Ruth Martin, RN in Right Antecubital via Peripheral IV. Orde red by Daniel Quach. 15:52:27 Case Start 15:54:06 20 mL 1% XYLOCAINE given in lab by Daniel Quach in Right Groin via Subcutaneous. 15:55:17 HR=61 bpm, XLAN=784/73 mmhg, SpO2=91.0 %, Resp=13 B/min 15:57:50 Access site was Right Femoral Artery. 15:57:57 A SHEATH, FR6.5 PRELUDE 11CM FR 6.5 was advanced into the Fem Art (right) using the Percuta neous technique. A JL 4.5 INFINITI CATHETER FR 6 was advanced over a wire. OMNIPAQUE, 350 MG, 100ML 100ML was us ed for 15:58:55 injections. Recorded Pressure: Ao, HR=65, Condition=Condition 1 16:00:06 (Aorta) Ao 109/64/83 16:00:16 HR=60 bpm, YSYY=202/68 mmhg, SpO2=91.0 %, Resp=10 B/min 16:01:05 The LCA was injected and visualized at various angles. OMNIPAQUE, 350 MG, 100ML 100ML used . 16:01:31 2 l/min OXYGEN given in lab by Ruth Martin RN via Nasal. After removing the current catheter a JR 4.0 INFINITI CATHETER FR 6 was advanced over a WIRE, 3 MMJ .035 180CM 16:02:44 180CM. 16:04:24 The RCA was injected and visualized at various angles. OMNIPAQUE, 350 MG, 100ML 100ML used . 16:05:15 HR=61 bpm, JOMQ=104/68 mmhg, SpO2=96 %, Resp=14 B/min After removing the current catheter a JR 4.0 INFINITI CATHETER FR 6 was advanced over a WIRE, 3 MMJ .035 180CM 16:05:48 180CM. 16:07:10 The SVG-LAD was injected and visualized at various angles. OMNIPAQUE, 350 MG, 100ML 100ML u sed. 16:10:17 The Gft. Stump 1 to circ was injected and visualized at various angles. OMNIPAQUE, 350 MG, 100ML 100ML used. 16:10:18 HR=54 bpm, BMVC=772/62 mmhg, SpO2=95.0 %, Resp=14 B/min After removing the current catheter a MARY INFINITI CATHETER FR 6 was advanced over a WIRE, 3MMJ .035 180CM 16:10:50 180CM. 16:13:40 J Wire removed 16:14:02 A WIRE, HYDROSTEER 150CM ANGLED GLIDE 150CM was inserted via Fem Art (right). 16:15:17 HR=55 bpm, MLIJ=523/57 mmhg, SpO2=96.0 %, Resp=13 B/min 16:16:34 Entiat Wire removed 16:17:47 The Gft. Stump 2 (SNYDER) was injected and visualized at various angles. OMNIPAQUE, 350 MG, 1 00ML 100ML used. 16:20:51 HR=62 bpm, FOVF=949/82 mmhg, SpO2=97.0 %, Resp=15 B/min 16:25:22 HR=59 bpm, GYHD=848/77 mmhg, SpO2=97.0 %, Resp=14 B/min After removing the current catheter a XB 4.5 GUIDE CATHETER FR 6 was advanced over a WIRE, 3MMJ .035 180CM 16:25:27 180CM. 15 mL ANGIOMAX BOLUS given in lab by David Reyes RN in Right Antecubital via Peripheral IV. Ordered by Main 16:26:34 Daniel. 16:27:59 A WIRE, BALANCE MIDDLEWEIGHT 190CM 190CM was inserted via Fem Art (right). 1.751 mg/kg/hr ANGIOMAX DRIP given in lab by David Reyes RN in Right Antecubital via Periphe ral IV. Pump/Drip 16:28:30 Flow = 34.5 ml/hr using NaCl .9 with a concentration of 250 mg in 50 ml. Ordered by Daryl Quach 16:29:20 Interventional wire has crossed the lesion 16:30:21 HR=61 bpm, OGDF=453/78 mmhg, SpO2=97.0 %, Resp=15 B/min A BALLOON, 2.25 X 12MM EUPHORA 12MM was inserted over WIRE, BALANCE MIDDLEWEIGHT 190CM 190CM vi a the 16:32:10 Fem Art (right). A BALLOON, 2.25 X 12MM EUPHORA 12MM over a WIRE, BALANCE MIDDLEWEIGHT 190CM 190CM in the CIRC P olena 16:32:55 was inflated using a 30 PERLA INDEFLATOR at 12 perla for 30 sec. 16:34:01 200 mcg NTG (IC) given in lab by Daniel Quach in Right Groin via Intra-coronary. 16:35:15 Balloon Removed. 16:35:24 HR=69 bpm, GYAD=819/65 mmhg, SpO2=96.0 %, Resp=11 B/min A STENT, 2.75 12MM ROSALBA 2.75 12MM was advanced through a XB 4.5 GUIDE CATHETER FR 6 over a WIRE , BALANCE 16:37:00 MIDDLEWEIGHT 190CM 190CM. A STENT, 2.75 12MM ROSALBA 2.75 12MM was deployed using a 30 PERLA INDEFLATOR at 12 atmospheres for 40 seconds 16:37:59 in the CIRC Prox. 16:38:54 Delivery device removed 16:40:34 Wire removed 16:40:38 Catheter was removed 16:40:56 HR=68 bpm, PIMU=066/79 mmhg, SpO2=94.0 %, Resp=9 B/min 16:41:26 An injection in the Fem Art (right) was made through the SHEATH, FR6.5 PRELUDE 11CM FR 6.5. 16:42:56 ANGIOSEAL, FR6 VIP FR 6 placement in the Fem Art (right) 16:45:24 HR=61 bpm, NDIF=254/73 mmhg, SpO2=97.0 %, Resp=13 B/min 16:46:15 Case End 16:48:59 Sterile dressing applied to site 16:49:00 No case complications noted. 16:49:01 Cine recording checked. 16:49:05 Bedside Report will be given. 16:49:06 Implantable Device card placed in patient's chart. 16:49:07 Report called to floor. 16:49:13 A Left Heart Cath was performed. 16:50:00 Leaking from angioseal site, pressure being held 16:51:00 HR=59 bpm, BWGP=166/79 mmhg, SpO2=98.0 %, Resp=13 B/min 16:55:24 HR=59 bpm, BNST=919/69 mmhg, SpO2=97.0 %, Resp=15 B/min 0 units/hr ANGIOMAX DRIP STOPPED given in lab by Mario, Ruth, RN in Right Antecubital via Pe ripheral IV. 16:55:46 Pump/Drip Flow = 34.5 ml/hr using [Solution Name]. Ordered by Daniel Quach. 16:57:42 600 mg PLAVIX given in lab by Ruth Martin, RN via Oral. Ordered by Daniel Quach. 17:00:56 HR=59 bpm, ZKVW=899/72 mmhg, SpO2=97.0 %, Resp=9 B/min 17:05:20 HR=57 bpm, GGHX=474/75 mmhg, SpO2=98.0 %, Resp=12 B/min 17:10:56 HR=58 bpm, LJWD=153/64 mmhg, SpO2=97.0 %, Resp=13 B/min 17:15:22 HR=58 bpm, CJZZ=559/78 mmhg, SpO2=96 %, Resp=14 B/min 17:20:27 HR=56 bpm, URUX=074/72 mmhg, SpO2=96.0 %, Resp=17 B/min 17:20:48 Site stopped leaking 17:23:15 Patient moved to [facility] End Study - Contrast Media Used In Study Contrast Total Opened (mL) Total Used (mL) Total Wasted (mL) Omnipaque 120 120 0 End Study - Maximum Contrast Load Max Contrast Load (mL) 378.8 End Study - Radiation Exposure Fluoro Time (minutes) 11.5 End Study - Patient Disposition Complications Transferred To Critical Care Bed
--- NOTE | 2017-08-29 17:51 | ECHRPT ---
Indication: cad CONCLUSIONS Normal left ventricular size. The left ventricular systolic function is severely reduced with an estimated ejection fraction in th e range of 20-25%. Global hypokinesis Mild mitral valve regurgitation. Aortic valve sclerosis is present. No aortic valve regurgitation. No aortic valve stenosis. There is mild tricuspid valve regurgitation. The estimated pulmonary arterial pressure is 47__ mmHg. The pulmonary valve is not well visualized. BP: / HR: Rhythm: Technical Quality:Good FINDINGS LEFT VENTRICLE Normal left ventricular size. The left ventricular systolic function is severely reduced with an estimated ejection fraction in th e range of 20-25%. RIGHT VENTRICLE Normal right ventricular size and systolic function. LEFT ATRIUM The left atrial size is normal. RIGHT ATRIUM The right atrial size is normal. ATRIAL SEPTUM Normal atrial septal thickness without atrial level shunting by limited color doppler interrogation. AORTA The aortic root and proximal ascending aorta are normal in size on limited imaging. MITRAL VALVE Structurally normal mitral valve. Mild mitral valve regurgitation. AORTIC VALVE Trileaflet aortic valve. Aortic valve sclerosis is present. No aortic valve regurgitation. No aortic valve stenosis. TRICUSPID VALVE Structurally normal tricuspid valve. There is mild tricuspid valve regurgitation. The estimated pulmonary arterial pressure is 47__ mmHg. PULMONARY VALVE The pulmonary valve is not well visualized. VESSELS The inferior vena cava is normal in size. PERICARDIUM No pericardial effusion. Elli Castellanos MD, FACC (Electronically Signed) Final Date:29 August 2017 17:50
--- NOTE | 2017-08-29 18:24 | MA ---
cc: Daniel Quach MD 08/29/2017 PROCEDURE: Coronary angiography, bypass graft angiography, balloon angioplasty and stenting of the proximal left circumflex artery. DESCRIPTION OF PROCEDURE: The patient was brought to the cardiac catheterization lab in a fasting state. Using fluoroscopy and using 1% lidocaine for local anesthesia, a 6.5 Filipino sheath was inserted in the right femoral artery. Left coronary angiography was completed using a left 4.5 Rogelio catheter. Right coronary angiography was completed using a 3DRC catheter. Angiography of the 2 vein grafts was performed using a right Rogelio catheter. An internal mammary diagnostic catheter was used to gain access to the left subclavian. A left subclavian angiogram was performed showing occlusion of the left internal mammary bypass. Attention was then turned towards intervention of the circumflex artery. Intravenous Angiomax was started. A 6-Filipino XB 4.5 guiding catheter engaged the left main nicely. Circumflex artery was wired with a BMW wire, it was predilated with a 2.25 mm balloon and then stented using a 2.7 x 12 mm Resolute stent at 12 atmospheres. Angiography demonstrated an excellent result. Guiding catheter was removed. Angiography was then obtained of the right femoral artery via the sheath followed by Angio-Seal placement. After deployment of the Angio-Seal device, there was bleeding that required manual compression, which is ongoing at the time of this dictation. Estimated blood loss was 120 mL. FINDINGS: 1. Hemodynamics: Aortic pressure is 109/64 with a mean of 83. 2. Coronary angiography: Left main coronary artery is short and normal-appearing. Left anterior descending artery tapers to a 90% proximal stenosis, LAD has 90% stenosis after the first diagonal branch, first diagonal branch has 80-90% disease, the zone of disease from the proximal LAD through the proximal portion of the diagonal branch is very long, distally the diagonal is a fairly small caliber vessel. There is competitive flow in the LAD from the LAD graft. Circumflex artery has a 90% proximal stenosis. First obtuse marginal branch is small and comes right out off just distal to the stenosis. The second obtuse marginal branch is totally occluded. There is a small posterolateral branch given off distally. The right coronary artery is occluded proximally with [id number] and [id number]-ry-[id number] collaterals. 3. Bypass grafts: The left internal mammary graft is occluded. There is a patent saphenous vein graft to the mid LAD that is widely patent. The LAD wraps around the apex. There is about 30% mid to distal LAD disease. There is also flow proximal to the anastomosis as well. The vein graft to the obtuse marginal graft is totally occluded at the aorta. 4. Results of intervention: Following stenting of the proximal circumflex stenosis, the 90% stenosis had been reduced to 0% without evidence of thrombus or dissection and no compromise of the first obtuse marginal branch. CONCLUSIONS: 1. Three-vessel coronary artery disease. 2. Only 1 residual patent graft, which is a vein graft to the mid LAD and is widely patent. 3. Total occlusion of the right coronary artery, but is well collateralized. 4. Critical stenosis of the proximal circumflex vessel, now successfully stented. 5. Occlusion of the vein graft to the obtuse marginal graft, which however is fed by collaterals from the LAD from the graft. PLAN: The patient will be maintained on aspirin and Plavix. MD TRU Hernadez/cc , 05:03 PM , 06:22 PM
[2017-08-29] MEDS ORDERED: SODIUM CHLORIDE 0.9% FLUSH 10 ML FLUSH IV FLUSH PRN (19:00)
[2017-08-29] MEDS ORDERED: ACETAMINOPHEN 325 MG TAB PO PRN (19:00)
[2017-08-29] MEDS ORDERED: MISC INFORMATION XX ONE (19:00)
[2017-08-29] MEDS ORDERED: oxyCODONE/ACETAMINOPHEN 5 MG/325 MG TAB PO PRN (19:00)
[2017-08-29] MEDS ORDERED: oxyCODONE/ACETAMINOPHEN 10 MG/325 MG TAB PO PRN (19:00)
[2017-08-29] MEDS: CARVEDILOL 3.125 MG TAB PO SCH (21:00)
[2017-08-30] VITALS (30 sets, daily range): BP systolic 103–155; BP diastolic 71–87; PULSE 55–86; RESP 16–20; TEMP 97.3–98.2; O2SAT 94–99
[2017-08-30] MEDS: CHLORHEXIDINE GLUCONATE 2 % 1 PACK (2 CLOTHS)(taper/protocol) TOPICAL SCH (04:00)
[2017-08-30 05:06] LABS: BICARBONATE 23.2 MEQ/L (21.0-32.0); CALCIUM 7.7 MG/DL (8.5-10.1); CREATININE 1.17 MG/DL (0.60-1.30); MAGNESIUM 2.3 MG/DL (1.5-2.5)
[2017-08-30] MEDS: SODIUM CHLOR 0.9% 1000 ML INJ 1,000 ML IV SCH (05:15)
[2017-08-30] MEDS: NITROGLYCERIN 2% OINT 1 GM PACKET TOPICAL SCH (05:15)
[2017-08-30 08:38] LABS: AUTOMATED NEUTROPHIL # 5.3 TH/MM3 (1.8-7.7); BASOPHIL % 0.4 % (0.0-2.0); EOSINOPHIL # 0.2 TH/MM3 (0-0.4); EOSINOPHIL % 3.4 % (0.0-4.0); HEMATOCRIT 34.5 % (39.0-51.0); HEMOGLOBIN 11.2 GM/DL (13.0-17.0); LYMPH % 10.8 % (9.0-44.0); LYMPHOCYTE # 0.8 TH/MM3 (1.0-4.8); MEAN CELL VOLUME 80.6 FL (80.0-100.0); MEAN CORPUSCULAR HEMOGLOBIN 26.1 PG (27.0-34.0); MEAN CORPUSCULAR HGB CONC 32.4 % (32.0-36.0); MONO % 10.9 % (0.0-8.0); MONOCYTE # 0.8 TH/MM3 (0-0.9); NEUT % 74.5 % (16.0-70.0); PLATELET COUNT 248 TH/MM3 (150-450); RED BLOOD COUNT 4.28 MIL/MM3 (4.50-5.90); RED CELL DISTRIBUTION WIDTH 16.3 % (11.6-17.2); WHITE BLOOD COUNT 7.2 TH/MM3 (4.0-11.0)
[2017-08-30] MEDS: SODIUM CHLORIDE 0.9% FLUSH 10 ML FLUSH IV FLUSH SCH ×4 (09:00→21:37)
[2017-08-30] MEDS ORDERED: ASPIRIN 81 MG CHEW TAB PO SCH (09:00)
[2017-08-30] MEDS: BUDESONIDE-FORMOTEROL 80/4.5 MCG INHALER INH SCH ×2 (09:00→21:38)
[2017-08-30] MEDS: CLOPIDOGREL 75 MG TAB PO SCH (09:50)
[2017-08-30] MEDS: DOCUSATE SODIUM 50 MG/SENNA 8.6 MG TAB PO SCH ×2 (09:50→21:00)
[2017-08-30] MEDS: PANTOPRAZOLE SOD 40 MG DELAYED RELEASE TAB PO SCH (09:50)
[2017-08-30] MEDS: CARVEDILOL 3.125 MG TAB PO SCH (09:51)
[2017-08-30] MEDS: PRAVASTATIN SOD 40 MG TAB PO SCH (09:51)
--- NOTE | 2017-08-30 10:07 | EKG ---
Date Performed: 08/29/2017 Time Performed: 19:57:52 PTAGE: 77 years EKG: Sinus rhythm . Prolonged QT interval Inferior infarct - age undetermined Ant/septal and lateral ST-T changes may b e due to myocardial ischemia Abnormal ECG PREVIOUS TRACING : 08/29/2017 11.18 DOCTOR: Kendell Buchanan Interpretating Date/Time 08/30/2017 10:06:46
--- NOTE | 2017-08-30 13:21 | EKG ---
Date Performed: 08/29/2017 Time Performed: 11:18:12 PTAGE: 77 years EKG: Sinus rhythm Prolonged QT interval Inferior infarct - age undetermined Ant/septal and lateral ST-T changes may be due to myocardial ischemia Abnormal ECG NO PREVIOUS TRACING DOCTOR: Kendell Buchanan Interpretating Date/Time 08/30/2017 13:18:47
--- NOTE | 2017-08-30 14:00 | PD.CARD.PN ---
Subjective Subjective Remarks Tired, dyspneic Objective Medications Current Medications Medications (Trade) Dose Ordered Sig/Gadiel Route Start Time Stop Time Status Last Admin (Heparin Inj) 5,000 units UNSCH PRN IV 08/29/17 03:00 (Heparin Inj) 2,500 units UNSCH PRN IV 08/29/17 03:00 Heparin Sodium/ Dextrose 250 ml @ 10.8 mls/hr TITRATE PRN IV 08/28/17 21:00 08/28/17 21:20 (NS Flush) 2 ml UNSCH PRN IV FLUSH 08/28/17 21:15 (NS Flush) 2 ml BID IV FLUSH 08/29/17 09:00 08/29/17 08:43 (Zofran Inj) 4 mg Q6H PRN IVP 08/28/17 21:15 (Tylenol) 650 mg Q6H PRN PO 08/28/17 21:15 ([place] 5-325 Mg) 1 tab Q4H PRN PO 08/28/17 21:15 (Morphine Inj) 2 mg Q3H PRN IV PUSH 08/28/17 21:15 (Desi-Colace) 1 tab BID PO 08/29/17 09:00 08/30/17 09:50 (Milk Of Magnesia Liq) 30 ml Q12H PRN PO 08/28/17 21:15 (Senokot) 17.2 mg Q12H PRN PO 08/28/17 21:15 (Dulcolax Supp) 10 mg DAILY PRN RECTAL 08/28/17 21:15 (Lactulose Liq) 30 ml DAILY PRN PO 08/28/17 21:15 (Nitroglycerin 2% Oint) 0.5 inch Q6HR PRN TOPICAL 08/28/17 21:15 (Symbicort 80-4.5 Mcg Inh) 1 puff Q12HR INH 08/29/17 09:00 08/30/17 09:00 (Protonix) 40 mg DAILY PO 08/29/17 09:00 08/30/17 09:50 (Pravachol) 40 mg DAILY PO 08/29/17 09:00 08/30/17 09:51 (Duoneb Neb) 1 ampule Q4HR NEB PRN NEB 08/28/17 23:00 08/29/17 19:49 Miscellaneous Information Patient in critical care unit? Ass... Q361D .XX 08/29/17 06:45 08/29/17 06:45 (Chlorhexidine 2% Cloth) 3 pack DAILY@04 TOPICAL 08/30/17 04:00 09/03/17 04:01 (Chlorhexidine 2% Cloth) 3 pack UNSCH PRN TOPICAL 08/29/17 06:45 09/03/17 06:42 (Aspirin) 325 mg ELECTRIC S[employer] WIRER PO 08/29/17 11:45 09/02/17 11:44 (Benadryl) 50 mg ELECTRIC SIGN WIRER PO 08/29/17 11:45 09/02/17 11:44 08/29/17 15:18 Sodium Chloride 1,000 ml @ 100 mls/hr Q10H IV 08/29/17 20:00 08/30/17 19:59 08/30/17 05:15 (NS Flush) 2 ml UNSCH PRN IV FLUSH 08/29/17 19:00 (NS Flush) 2 ml BID IV FLUSH 08/29/17 21:00 (Tylenol) 325 mg Q4H PRN PO 08/29/17 19:00 (Percocet 5-325 Mg) 1 tab Q4H PRN PO 08/29/17 19:00 08/29/17 20:06 (Percocet 10-325 Mg) 1 tab Q4H PRN PO 08/29/17 19:00 (Aspirin Chew) 81 mg DAILY PO 08/30/17 09:00 08/30/17 09:51 (Plavix) 75 mg DAILY PO 08/30/17 09:00 08/30/17 09:50 (Nitroglycerin 2% Oint) 0.5 inch Q6HR TOPICAL 08/31/17 04:00 UNV (Imdur) 30 mg DAILY@07 PO 08/31/17 07:00 Vital Signs / I&O Vital Signs Date Time Temp Pulse Resp B/P (MAP) Pulse Ox O2 Delivery O2 Flow Rate FiO2 08/30/17 13:57 98 Nasal Cannula 2.00 08/30/17 07:30 98.2 68 18 148/87 (107) 95 08/30/17 06:00 62 08/30/17 05:00 60 08/30/17 04:15 62 16 103/71 (82) 99 08/30/17 04:00 58 08/30/17 03:00 55 08/30/17 02:00 60 08/30/17 01:00 56 08/30/17 00:00 56 08/29/17 23:00 57 08/29/17 23:00 56 18 103/72 (82) 98 08/29/17 22:00 64 08/29/17 21:00 60 08/29/17 20:00 64 08/29/17 19:49 97 Nasal Cannula 2.00 08/29/17 19:45 98.2 68 20 95/77 (83) 97 08/29/17 19:00 71 08/29/17 18:00 56 08/29/17 14:00 53 I/O 08/29/17 08/29/17 08/29/17 08/30/17 08/30/17 08/30/17 07:00 15:00 23:00 07:00 15:00 23:00 Intake Total 240 ml 480 ml Output Total 250 ml 1300 ml Balance -250 ml 240 ml -820 ml Intake Oral 240 ml 480 ml Output Urine Total 250 ml 1300 ml Stool Total 0 ml Physical Exam Alert Mildly tachypneic Chest severely diminished BS CV S1S@ RRR Right groin no hematoma No edema Laboratory Laboratory Tests Test 08/30/17 04:00 08/30/17 07:15 Blood Urea Nitrogen 16 MG/DL Creatinine 1.17 MG/DL Random Glucose 92 MG/DL Calcium Level 7.7 MG/DL Magnesium Level 2.3 MG/DL Sodium Level 141 MEQ/L Potassium Level 4.2 MEQ/L Chloride Level 112 MEQ/L Carbon Dioxide Level 23.2 MEQ/L Anion Gap 6 MEQ/L Estimat Glomerular Filtration Rate 61 ML/MIN Total Creatine Kinase 155 U/L White Blood Count 7.2 TH/MM3 Red Blood Count 4.28 MIL/MM3 Hemoglobin 11.2 GM/DL Hematocrit 34.5 % Mean Corpuscular Volume 80.6 FL Mean Corpuscular Hemoglobin 26.1 PG Mean Corpuscular Hemoglobin Concent 32.4 % Red Cell Distribution Width 16.3 % Platelet Count 248 TH/MM3 Mean Platelet Volume 7.0 FL Neutrophils (%) (Auto) 74.5 % Lymphocytes (%) (Auto) 10.8 % Monocytes (%) (Auto) 10.9 % Eosinophils (%) (Auto) 3.4 % Basophils (%) (Auto) 0.4 % Neutrophils # (Auto) 5.3 TH/MM3 Lymphocytes # (Auto) 0.8 TH/MM3 Monocytes # (Auto) 0.8 TH/MM3 Eosinophils # (Auto) 0.2 TH/MM3 Basophils # (Auto) 0.0 TH/MM3 CBC Comment DIFF FINAL Differential Comment Imaging Last 48 hours Impressions Chest X-Ray 08/28/17 425 Signed Impressions: Service Date/Time: Monday, August 28, 2017 20:07 - CONCLUSION: 1. Moderate- sized hiatal hernia. 2. No acute cardiopulmonary disease. Zain Bowser MD Assessment and Plan Problem List: (1) Stented coronary artery ICD Codes: Z95.5 - Presence of coronary angioplasty implant and graft (2) Morbid obesity ICD Codes: E66.01 - Morbid obesity Status: Acute (3) NSTEMI (non-ST elevated myocardial infarction) ICD Codes: I21.4 - Non-ST elevation (NSTEMI) myocardial infarction (4) COPD (chronic obstructive pulmonary disease) ICD Codes: J44.9 - Chronic obstructive pulmonary disease, unspecified Daniel Quach MD Aug 30, 2017 14:00
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
[2017-08-30] MEDS ORDERED: VALSARTAN 40 MG TAB PO SCH (21:00)
[2017-08-31] VITALS (24 sets, daily range): BP systolic 121–151; BP diastolic 62–94; PULSE 54–72; RESP 16–18; TEMP 97.6–98.2; O2SAT 93–98
[2017-08-31] MEDS ORDERED: NITROGLYCERIN 2% OINT 1 GM PACKET TOPICAL SCH (04:00)
[2017-08-31] MEDS: CHLORHEXIDINE GLUCONATE 2 % 1 PACK (2 CLOTHS)(taper/protocol) TOPICAL SCH (04:00)
--- NOTE | 2017-08-31 05:19 | RADRPT ---
EXAM DATE/TIME: 08/31/2017 04:32 [facility] COMPARISON: CHEST PA & LAT, August 28, 2017, 20:07. CHEST SINGLE AP, August 08, 2017, 18:46. INDICATIONS : Shortness of breath, possible pulmonary. MEDICAL HISTORY : Chronic obstructive pulmonary disease. Congestive heart failure. Myocardial infarction. SURGICAL HISTORY : CABG. Coronary artery stent. ENCOUNTER: Subsequent ACUITY: 3 days PAIN SCORE: 0/10 LOCATION: Bilateral chest FINDINGS: Portable AP view of the chest demonstrates a normal-sized cardiac silhouette in this patient post med vidal sternotomy and CABG. The most superior sternotomy wire remains fractured. There is left lower lob e airspace opacity adjacent to a hiatal hernia. No pleural effusion or pneumothorax is identified. Th e bones and soft tissues demonstrate no acute finding. CONCLUSION: Mild airspace opacity in the left lower lobe adjacent to the hiatal hernia. This could represent atel ectasis or airspace consolidation. Marquise Ramirez MD on August 31, 2017 at 5:16 Board Certified Radiologist. This report was verified electronically.
[2017-08-31] MEDS ORDERED: ISOSORBIDE MONONITRATE 30 MG CR TAB (IMDUR) PO SCH (07:00)
[2017-08-31 07:30] LABS: HEMATOCRIT 33.6 % (39.0-51.0); HEMOGLOBIN 11.1 GM/DL (13.0-17.0); MEAN CORPUSCULAR HEMOGLOBIN 26.3 PG (27.0-34.0); MEAN CORPUSCULAR HGB CONC 32.9 % (32.0-36.0); MEAN PLATELET VOLUME 6.9 FL (7.0-11.0); PLATELET COUNT 250 TH/MM3 (150-450); RED CELL DISTRIBUTION WIDTH 16.5 % (11.6-17.2)
[2017-08-31 07:58] LABS: BICARBONATE 23.4 MEQ/L (21.0-32.0); CALCIUM 8.5 MG/DL (8.5-10.1); CREATININE 1.32 MG/DL (0.60-1.30)
[2017-08-31] MEDS ORDERED: IOHEXOL 350 MG/ML 50 ML BTL (for Cath Lab) OTHER ONE (08:26)
[2017-08-31] MEDS ORDERED: IOHEXOL 350 MG/ML 100 ML BTL (for Cath Lab) OTHER ONE (08:26)
[2017-08-31] MEDS: SODIUM CHLORIDE 0.9% FLUSH 10 ML FLUSH IV FLUSH SCH ×4 (09:00→21:03)
[2017-08-31] MEDS: BUDESONIDE-FORMOTEROL 80/4.5 MCG INHALER INH SCH ×2 (09:00→21:03)
--- NOTE | 2017-08-31 10:28 | PD.CARD.PN ---
Subjective Subjective Remarks Mild to moderate dyspnea with minimal exertion. No CP, dizziness, PND, palpitations. Objective Medications Item Value Date Time Isosorbide 30 mg 08/31/17 0700 Mononitrate DAILY@07/PO 08/31/17 0637 (Imdur) Nitroglycerin 0.5 inch 08/31/17 0400 (Nitroglycerin Q6H/TOPICAL 08/31/17 0448 2% Oint) Valsartan 40 mg 08/30/17 2100 (Diovan) BID/PO 08/30/17 2137 Aspirin 81 mg 08/30/17 0900 (Aspirin Chew) DAILY/PO 08/30/17 0951 Clopidogrel 75 mg 08/30/17 0900 Bisulfate DAILY/PO 08/30/17 0950 (Plavix) Pravastatin Sodium 40 mg 08/29/17 0900 (Pravachol) DAILY/PO 08/30/17 0951 Current Medications Medications (Trade) Dose Ordered Sig/Gadiel Route Start Time Stop Time Status Last Admin (Heparin Inj) 5,000 units UNSCH PRN IV 08/29/17 03:00 (Heparin Inj) 2,500 units UNSCH PRN IV 08/29/17 03:00 Heparin Sodium/ Dextrose 250 ml @ 10.8 mls/hr TITRATE PRN IV 08/28/17 21:00 08/28/17 21:20 (NS Flush) 2 ml UNSCH PRN IV FLUSH 08/28/17 21:15 (NS Flush) 2 ml BID IV FLUSH 08/29/17 09:00 08/30/17 21:37 (Zofran Inj) 4 mg Q6H PRN IVP 08/28/17 21:15 (Tylenol) 650 mg Q6H PRN PO 08/28/17 21:15 ([place] 5-325 Mg) 1 tab Q4H PRN PO 08/28/17 21:15 (Morphine Inj) 2 mg Q3H PRN IV PUSH 08/28/17 21:15 (Desi-Colace) 1 tab BID PO 08/29/17 09:00 08/30/17 09:50 (Milk Of Magnesia Liq) 30 ml Q12H PRN PO 08/28/17 21:15 (Senokot) 17.2 mg Q12H PRN PO 3/2/18 21:15 (Dulcolax Supp) 10 mg DAILY PRN RECTAL 08/28/17 21:15 (Lactulose Liq) 30 ml DAILY PRN PO 08/28/17 21:15 (Symbicort 80-4.5 Mcg Inh) 1 puff Q12HR INH 08/29/17 09:00 08/30/17 21:38 (Protonix) 40 mg DAILY PO 08/29/17 09:00 08/30/17 09:50 (Pravachol) 40 mg DAILY PO 08/29/17 09:00 08/30/17 09:51 (Duoneb Neb) 1 ampule Q4HR NEB PRN NEB 08/28/17 23:00 08/29/17 19:49 Miscellaneous Information Patient in critical care unit? Ass... Q361D .XX 08/29/17 06:45 08/29/17 06:45 (Chlorhexidine 2% Cloth) 3 pack DAILY@04 TOPICAL 08/30/17 04:00 09/03/17 04:01 (Chlorhexidine 2% Cloth) 3 pack UNSCH PRN TOPICAL 08/29/17 06:45 09/03/17 06:42 (Aspirin) 325 mg [employer] PO 08/29/17 11:45 09/02/17 11:44 (Benadryl) 50 mg [employer] PO 08/29/17 11:45 09/02/17 11:44 08/29/17 15:18 (NS Flush) 2 ml UNSCH PRN IV FLUSH 08/29/17 19:00 (NS Flush) 2 ml BID IV FLUSH 08/29/17 21:00 (Tylenol) 325 mg Q4H PRN PO 08/29/17 19:00 (Percocet 5-325 Mg) 1 tab Q4H PRN PO 08/29/17 19:00 08/29/17 20:06 (Percocet 10-325 Mg) 1 tab Q4H PRN PO 08/29/17 19:00 (Aspirin Chew) 81 mg DAILY PO 08/30/17 09:00 08/30/17 09:51 (Plavix) 75 mg DAILY PO 08/30/17 09:00 08/30/17 09:50 (Nitroglycerin 2% Oint) 0.5 inch Q6H TOPICAL 08/31/17 04:00 08/31/17 04:48 (Imdur) 30 mg DAILY@07 PO 08/31/17 07:00 08/31/17 06:37 (Diovan) 40 mg BID PO 08/30/17 21:00 08/30/17 21:37 Vital Signs / I&O Vital Signs Date Time Temp Pulse Resp B/P (MAP) Pulse Ox O2 Delivery O2 Flow Rate FiO2 08/31/17 04:50 66 16 136/82 (100) 95 08/31/17 03:00 67 08/31/17 02:00 62 08/31/17 01:00 68 08/31/17 00:00 60 08/30/17 23:30 65 16 118/72 (87) 94 08/30/17 23:00 63 08/30/17 22:00 62 08/30/17 21:00 58 08/30/17 20:00 64 08/30/17 19:25 97.3 67 20 132/79 (96) 98 08/30/17 19:00 71 08/30/17 18:00 64 08/30/17 17:21 98 Nasal Cannula 2.00 08/30/17 17:00 68 08/30/17 16:00 62 08/30/17 15:00 70 08/30/17 15:00 97.9 60 18 155/87 (109) 98 08/30/17 14:00 62 08/30/17 13:57 98 Nasal Cannula 2.00 08/30/17 13:00 62 08/30/17 12:00 72 08/30/17 11:00 97.8 58 18 140/78 (98) 98 08/30/17 11:00 70 I/O 08/30/17 08/30/17 08/30/17 08/31/17 08/31/17 08/31/17 07:00 15:00 23:00 07:00 15:00 23:00 Intake Total 480 ml 620 ml 400 ml Output Total 1300 ml 1100 ml 1600 ml Balance -820 ml -480 ml -1200 ml Intake Oral 480 ml 620 ml 400 ml Output Urine Total 1300 ml 1100 ml 1600 ml Stool Total 0 ml # Bowel Movements 0 Physical Exam GENERAL: Well developed, well nourished. No acute distress. HEENT: Jugular venous pressure is normal. CHEST: Diminished breath sounds diffusely. CARDIAC: Regular rate and rhythm without S3, S4, or murmur. ABDOMEN: Soft, nontender, no hepatosplenomegaly. Bowel sounds present. EXTREMITIES: No clubbing, cyanosis, or edema. Laboratory Laboratory Tests Test 08/31/17 06:35 White Blood Count 7.0 TH/MM3 Red Blood Count 4.20 MIL/MM3 Hemoglobin 11.1 GM/DL Hematocrit 33.6 % Mean Corpuscular Volume 80.0 FL Mean Corpuscular Hemoglobin 26.3 PG Mean Corpuscular Hemoglobin Concent 32.9 % Red Cell Distribution Width 16.5 % Platelet Count 250 TH/MM3 Mean Platelet Volume 6.9 FL Blood Urea Nitrogen 16 MG/DL Creatinine 1.32 MG/DL Random Glucose 94 MG/DL Calcium Level 8.5 MG/DL Sodium Level 142 MEQ/L Potassium Level 4.2 MEQ/L Chloride Level 109 MEQ/L Carbon Dioxide Level 23.4 MEQ/L Anion Gap 10 MEQ/L Estimat Glomerular Filtration Rate 53 ML/MIN Imaging Last 24 hours Impressions Chest X-Ray 08/31/17 0600 Signed Impressions: Service Date/Time: Thursday, August 31, 2017 04:32 - CONCLUSION: Mild airspace opacity in the left lower lobe adjacent to the hiatal hernia. This could represent atelectasis or airspace consolidation. Marquise Ramirez MD Assessment and Plan Problem List: (1) CAD (coronary artery disease) ICD Codes: I25.10 - Atherosclerotic heart disease of [place] coronary artery without angina pectoris Status: Chronic Plan: Stable s/p stent [place] left circumflex over the weekend. No further angina. Groin stable. OK to discharge home on his home medications, which includes Entresto 24-26 one bid, metoprolol succinate 25 mg qd, furosemide 20 mg qd, aspirin 325 mg qd, plus clopidogrel 75 mg qd. Follow up with me in 3 weeks. (2) Ischemic cardiomyopathy ICD Codes: I25.5 - Ischemic cardiomyopathy Status: Chronic Plan: EF 30-35% on echo earlier this month, improved compared to 20-25% in 2016. Continue beta rene, Entresto. Compensated at present. Code Status full code Discussed Condition With patient Problem Qualifiers (1) CAD (coronary artery disease): Qualified Codes: I25.110 - Atherosclerotic heart disease of [place] coronary artery with unstable angina pectoris Zach Devi MD Aug 31, 2017 10:28
[2017-08-31] MEDS: DOCUSATE SODIUM 50 MG/SENNA 8.6 MG TAB PO SCH ×2 (10:37→21:03)
[2017-08-31] MEDS: PRAVASTATIN SOD 40 MG TAB PO SCH (10:38)
[2017-08-31] MEDS: PANTOPRAZOLE SOD 40 MG DELAYED RELEASE TAB PO SCH (10:38)
[2017-08-31] MEDS: CLOPIDOGREL 75 MG TAB PO SCH (10:39)
[2017-08-31] MEDS ORDERED: METO1TAB42 PO (11:12)
[2017-08-31] MEDS ORDERED: PLAV75TA29 PO (11:12)
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
--- NOTE | 2017-08-31 15:48 | HHI.DCPOC ---
Discharge Care Plan Diagnosis: (1) CAD (coronary artery disease) (2) Ischemic cardiomyopathy (3) Adjustment disorder with depressed mood Goals to Promote Your Health * To prevent worsening of your condition and complications * To maintain your health at the optimal level Directions to Meet Your Goals Take your medications as prescribed Follow your dietary instruction Follow activity as directed Keep your appointments as scheduled Take your immunizations and boosters as scheduled If your symptoms worsen call your PCP, if no PCP go to Urgent Care Center or Emergency Room Smoking is Dangerous to Your Health. Avoid second hand smoke Call the 24-hour hour crisis hotline for domestic abuse at Mamta Brito MD Aug 31, 2017 15:48
--- NOTE | 2017-08-31 18:59 | HHI.PR ---
Subjective Remarks f/u for NSTEMI patient seen around 10:20 am. At that time patient had no complaints. He denied any CP, SOB, palpitations lightheadedness or dizziness. He denied any suicidal or homicidal ideations. He stated that he feels anxious because of his heart disease and does not know when he will but is greatly for his life. Psychiatrist Dr. Dawson consulted and cleared patient for discharge. He stated patient did not met inpatient pysch criteria and patient refused any treatment for is depression. Patient was discharge and patient;s nurse Kael told him this. Patient then stated he has thoughts of suicidal and will find a way to harm herself. Burt Act placed again since I am unsure if patient will act on these thought. discharged order cancelled. Objective Vitals Vital Signs Date Time Temp Pulse Resp B/P (MAP) Pulse Ox O2 Delivery O2 Flow Rate FiO2 08/31/17 16:00 58 08/31/17 15:00 62 08/31/17 15:00 62 18 151/94 (113) 98 08/31/17 14:00 64 08/31/17 13:00 66 08/31/17 12:00 64 08/31/17 11:00 70 08/31/17 11:00 97.8 68 18 138/66 (90) 94 08/31/17 10:00 66 08/31/17 09:00 72 08/31/17 08:00 64 08/31/17 07:30 97.6 68 18 124/62 (82) 93 08/31/17 07:00 64 08/31/17 04:50 66 16 136/82 (100) 95 08/31/17 03:00 67 08/31/17 02:00 62 08/31/17 01:00 68 08/31/17 00:00 60 08/30/17 23:30 65 16 118/72 (87) 94 08/30/17 23:00 63 08/30/17 22:00 62 08/30/17 21:00 58 08/30/17 20:00 64 08/30/17 19:25 97.3 67 20 132/79 (96) 98 08/30/17 19:00 71 I/O 08/30/17 08/30/17 08/30/17 08/31/17 08/31/17 08/31/17 07:00 15:00 23:00 07:00 15:00 23:00 Intake Total 480 ml 620 ml 400 ml Output Total 1300 ml 1100 ml 1600 ml Balance -820 ml -480 ml -1200 ml Intake Oral 480 ml 620 ml 400 ml Output Urine Total 1300 ml 1100 ml 1600 ml Stool Total 0 ml # Bowel Movements 0 Result Diagram: 08/31/17 0635 08/31/17 0635 Objective Remarks GENERAL: in NAD CARDIOVASCULAR: Regular rate and rhythm without murmurs, gallops, or rubs. RESPIRATORY: Breath sounds equal bilaterally. No accessory muscle use. GASTROINTESTINAL: Abdomen soft, non-tender, nondistended. MUSCULOSKELETAL: No cyanosis, or edema. BACK: Nontender without obvious deformity. No CVA tenderness. Medications and IVs Current Medications Nitroglycerin (Nitroglycerin 2% Oint) 1 inch ONCE ONCE TOP ; Start 08/28/17 at 19:45; Stop 08/28/17 at 20:25; Status DC Sodium Chloride (NS Flush) 2 ml UNSCH PRN IVF FLUSH AFTER USING IV ACCESS; Start 08/28/17 at 19:45; Stop 08/28/17 at 21:19; Status DC Heparin Sodium (Porcine) (Heparin Inj) 4,000 units ONCE ONCE IV Last administered on 08/28/17at 21:18; Start 08/28/17 at 21:00; Stop 08/28/17 at 21:01; Status DC Heparin Sodium (Porcine) (Heparin Inj) 5,000 units UNSCH PRN IV APTT LESS THAN 25; Start 08/29/17 at 03:00 Heparin Sodium (Porcine) (Heparin Inj) 2,500 units UNSCH PRN IV APTT 25 TO 39; Start 08/29/17 at 03:00 Heparin Sodium/ Dextrose 250 ml @ 10.8 mls/hr TITRATE PRN IV Coagulation Management Last administered on 08/28/17at 21:20; Start 08/28/17 at 21:00 Sodium Chloride 1,000 ml @ 100 mls/hr Q10H IV Last administered on 08/28/17at 22 :12; Start 08/28/17 at 21:13; Stop 08/30/17 at 10:41; Status DC Sodium Chloride (NS Flush) 2 ml UNSCH PRN IV FLUSH FLUSH AFTER USING IV ACCESS ; Start 08/28/17 at 21:15 Sodium Chloride (NS Flush) 2 ml BID IV FLUSH Last administered on 08/31/17at 09: 00; Start 08/29/17 at 09:00 Ondansetron HCl (Zofran Inj) 4 mg Q6H PRN IVP NAUSEA OR VOMITING; Start at 21:15 Acetaminophen (Tylenol) 650 mg Q6H PRN PO FEVER/PAIN SCALE 1 TO 2; Start at 21:15 Acetaminophen/ Hydrocodone Bitart ([place] 5-325 Mg) 1 tab Q4H PRN PO PAIN SCALE 3 TO 5; Start 08/28/17 at 21:15 Morphine Sulfate (Morphine Inj) 2 mg Q3H PRN IV PUSH Pain 6-10; Start 08/28/17 at 21:15 Senna/Docusate Sodium (Desi-Colace) 1 tab BID PO Last administered on 08/31/17at 10:37; Start 08/29/17 at 09:00 Magnesium Hydroxide (Milk Of Magnesia Liq) 30 ml Q12H PRN PO Mild constipation ; Start 08/28/17 at 21:15 Sennosides (Senokot) 17.2 mg Q12H PRN PO Moderate constipation; Start 08/28/17 at 21:15 Bisacodyl (Dulcolax Supp) 10 mg DAILY PRN RECTAL SEVERE CONSITIPATION; Start at 21:15 Lactulose (Lactulose Liq) 30 ml DAILY PRN PO SEVERE CONSITIPATION; Start at 21:15 Nitroglycerin (Nitroglycerin 2% Oint) 0.5 inch Q6HR PRN TOPICAL CHEST PAIN; Start 08/28/17 at 21:15; Stop 08/30/17 at 13:58; Status DC Aspirin (Aspirin) 325 mg DAILY PO Last administered on 08/29/17at 08:43; Start at 09:00; Stop 08/29/17 at 18:51; Status DC Budesonide/ Formoterol Fumarate (Symbicort 80-4.5 Mcg Inh) 1 puff Q12HR INH Last administered on 08/31/17at 09:00; Start 08/29/17 at 09:00 Metoprolol Tartrate (Lopressor) 25 mg DAILY PO ; Start 08/29/17 at 09:00; Stop at 13:16; Status DC Pantoprazole Sodium (Protonix) 40 mg DAILY PO Last administered on 08/31/17 10: 38; Start 08/29/17 at 09:00 Pravastatin Sodium (Pravachol) 40 mg DAILY PO Last administered on 08/31/17at 10: 38; Start 08/29/17 at 09:00 Albuterol/ Ipratropium (Duoneb Neb) 1 ampule Q4HR NEB PRN NEB SOB/WHEEZING Last administered on 08/29/17at 19:49; Start 08/28/17 at 23:00 Miscellaneous Information Patient in critical care unit? Ass... [id number] .XX Last administered on 08/29/17at 06:45; Start 08/29/17 at 06:45 Chlorhexidine Gluconate (Chlorhexidine 2% Cloth) 3 pack DAILY@04 TOPICAL ; Start 08/30/17 at 04:00; Stop 09/03/17 at 04:01 Chlorhexidine Gluconate (Chlorhexidine 2% Cloth) 3 pack UNSCH PRN TOPICAL HYGIENIC CARE; Start 08/29/17 at 06:45; Stop 09/03/17 at 06:42 Aspirin (Aspirin) 325 mg MOTORIZED SQUAD CAPTAIN PO ; Start 08/29/17 at 11:45; Stop 09/02/17 at 11:44 Diphenhydramine HCl (Benadryl) 50 mg MOTORIZED SQUAD CAPTAIN PO Last administered on 08/29/17at 15:18; Start 08/29/17 at 11:45; Stop 09/02/17 at 11:44 Carvedilol (Coreg) 3.125 mg Q12HR PO Last administered on 08/30/17at 09:51; Start 08/29/17 at 21:00; Stop 08/30/17 at 13:54; Status DC Nitroglycerin (Nitroglycerin 2% Oint) 1 inch Q6HR TOPICAL Last administered on 08/30/17at 05:15; Start 08/29/17 at 14:15; Stop 08/30/17 at 13:54; Status DC Heparin Sodium/ Sodium Chloride 2,000 ml @ As Directed STK-MED ONCE IV FLUSH Last administered on 08/29/17at 15:31; Start 08/29/17 at 15:31; Stop 08/29/17 at 15: 32; Status DC Midazolam HCl (Versed Inj) 2 mg STK-MED ONCE .ROUTE Last administered on at 16:20; Start 08/29/17 at 15:50; Stop 08/29/17 at 15:51; Status DC Bivalirudin (Angiomax Inj) 250 mg STK-MED ONCE .ROUTE Last administered on at 16:24; Start 08/29/17 at 16:24; Stop 08/29/17 at 16:25; Status DC Clopidogrel Bisulfate (Plavix) 600 mg STK-MED ONCE .ROUTE ; Start 08/29/17 at 16: 53; Stop 08/29/17 at 16:54; Status DC Sodium Chloride 1,000 ml @ 100 mls/hr Q10H IV Last administered on 08/30/17at 05 :15; Start 08/29/17 at 20:00; Stop 08/30/17 at 19:35; Status DC Sodium Chloride (NS Flush) 2 ml UNSCH PRN IV FLUSH FLUSH AFTER USING IV ACCESS ; Start 08/29/17 at 19:00 Sodium Chloride (NS Flush) 2 ml BID IV FLUSH Last administered on 08/31/17at 09: 00; Start 08/29/17 at 21:00 Acetaminophen (Tylenol) 325 mg Q4H PRN PO PAIN SCALE 1 TO 2; Start 08/29/17 at 19:00 Oxycodone/ Acetaminophen (Percocet 5-325 Mg) 1 tab Q4H PRN PO PAIN SCALE 3 TO 5 Last administered on 08/29/17at 20:06; Start 08/29/17 at 19:00 Oxycodone/ Acetaminophen (Percocet 10-325 Mg) 1 tab Q4H PRN PO PAIN SCALE 6 TO 10; Start 08/29/17 at 19:00 Aspirin (Aspirin Chew) 81 mg DAILY PO Last administered on 08/30/17at 09:51; Start 08/30/17 at 09:00; Stop 08/31/17 at 10:31; Status DC Clopidogrel Bisulfate (Plavix) 75 mg DAILY PO Last administered on 08/31/17at 10: 39; Start 08/30/17 at 09:00 Miscellaneous Information 1 ONCE ONCE XX ; Start 08/29/17 at 19:00; Stop at 19:01; Status DC Nitroglycerin (Nitroglycerin 2% Oint) 0.5 inch Q6H TOPICAL Last administered on 08/31/17at 04:48; Start 08/31/17 at 04:00; Stop 08/31/17 at 10:30; Status DC Isosorbide Mononitrate (Imdur) 30 mg DAILY@07 PO Last administered on 08/31/17at 06:37; Start 08/31/17 at 07:00; Stop 08/31/17 at 10:30; Status DC Valsartan (Diovan) 40 mg BID PO Last administered on 08/30/17at 21:37; Start 08/30 at 21:00; Stop 08/31/17 at 10:31; Status DC Iohexol (OMNIPAQUE 350 INJ (Vet Tech)) 100 ml STK-MED ONCE OTHER ; Start at 08:26; Stop 08/31/17 at 08:27; Status DC Iohexol (OMNIPAQUE 350 INJ (Vet Tech)) 50 ml STK-MED ONCE OTHER ; Start 08/31/17 at 08:26; Stop 08/31/17 at 08:27; Status DC Aspirin (Aspirin) 325 mg DAILY PO ; Start 09/01/17 at 09:00 Sacubitril/ Valsartan (Entresto 24-26 Mg) 1 tab BID PO ; Start 08/31/17 at 21:00 Metoprolol Succinate (Toprol Xl) 25 mg DAILY PO ; Start 09/01/17 at 09:00 A/P Problem List: (1) NSTEMI (non-ST elevated myocardial infarction) ICD Code: I21.4 - Non-ST elevation (NSTEMI) myocardial infarction (2) SEAN (acute kidney injury) ICD Code: N17.9 - Acute kidney failure, unspecified (3) COPD (chronic obstructive pulmonary disease) ICD Code: J44.9 - Chronic obstructive pulmonary disease, unspecified (4) Depression ICD Code: F32.9 - Major depressive disorder, single episode, unspecified Assessment and Plan This is a 77 y/o who p/w chest pain - s/p stent rosebud left circumflex. asymptomatic. per head bucker d/c on Entresto 24-26 one bid, metoprolol succinate 25 mg qd, furosemide 20 mg qd, aspirin 325 mg qd, plus clopidogrel 75 mg qd. Follow up in [address] Devi. SEAN: Creatinine 1.62, previously 1.19 on 08/09/17. -most likely pre-renal due to NSTEMI. resolved with fluids. COPD: - Chronic Respiratory Failure, continue home Symbicort, DuoNeb prn. Depression: -psychiatrist evaluated patient and he refused to be started on treated and did not met inpatient psychiatry criteria. when patient found out he was going to be discharge he told nurse he had suicidal thoughts. will BURT ACT until psych re-evaluate patients. DVT Prophylaxis: Bilateral SCDs. Discharge Planning discharge ordered was placed to SNF but patient now stated he is suicidal. d/c discharge order. BURT ACT. suicidal precautions. sitter. nurse to notify Dr. Dawson. discussed case with patient's nurse Kael. Mamta Brito MD Aug 31, 2017 18:59
[2017-08-31] MEDS ORDERED: SACUBITRIL/VALSARTAN 24 MG-26 MG TAB PO SCH (21:00)
[2017-09-01 08:49] LABS: BICARBONATE 23.8 MEQ/L (21.0-32.0); CREATININE 1.06 MG/DL (0.60-1.30); MAGNESIUM 2.4 MG/DL (1.5-2.5)
[2017-09-01 08:53] LABS: CALCIUM 9.7 MG/DL (8.5-10.1)
[2017-09-01] MEDS ORDERED: METOPROLOL SUCCINATE 25 MG EXTENDED RELEASE TAB PO SCH (09:00)
[2017-09-01] MEDS ORDERED: ASPIRIN 325 MG TAB PO SCH (09:00)
== END 2017-08-31 23:36 | DRG 247 ==
LOC: NEPE 19:33 → NEDA 21:15 → HIME 08-29 06:30 → HCIS 08-29 17:32
PROVIDERS: ADMIT Family Medicine; ATTEND Family Medicine
PROC: 027034Z Dilation of Coronary Artery, One Artery with Drug-eluting Intraluminal Device, Percutaneous Approach (ICD-10-PCS; principal; 2017-08-29)
PROC: 4A023N7 Measurement of Cardiac Sampling and Pressure, Left Heart, Percutaneous Approach (ICD-10-PCS; 2017-08-29)
PROC: B2111ZZ Fluoroscopy of Multiple Coronary Arteries using Low Osmolar Contrast (ICD-10-PCS; 2017-08-29)
DX: I21.4 Non-ST elevation (NSTEMI) myocardial infarction (principal); N17.9 Acute kidney failure, unspecified; J96.10 Chronic respiratory failure, unspecified whether with hypoxia or hypercapnia; R45.851 Suicidal ideations; I25.810 Atherosclerosis of coronary artery bypass graft(s) without angina pectoris; E66.01 Morbid (severe) obesity due to excess calories; J44.9 Chronic obstructive pulmonary disease, unspecified; I10 Essential (primary) hypertension; E78.5 Hyperlipidemia, unspecified; M15.9 Polyosteoarthritis, unspecified; K44.9 Diaphragmatic hernia without obstruction or gangrene; I25.110 Atherosclerotic heart disease of native coronary artery with unstable angina pectoris; D64.9 Anemia, unspecified; F43.21 Adjustment disorder with depressed mood; I25.5 Ischemic cardiomyopathy; F10.21 Alcohol dependence, in remission; Z68.33 Body mass index [BMI] 33.0-33.9, adult; Z79.82 Long term (current) use of aspirin; Z95.1 Presence of aortocoronary bypass graft; Z95.5 Presence of coronary angioplasty implant and graft; Z87.11 Personal history of peptic ulcer disease; Z87.891 Personal history of nicotine dependence
CPT/HCPCS: 71045; 71046; 80048; 80053; 82550; 82552; 82728; 83540; 83550; 83735; 83880; 84484; 85025; 85027; 85610; 85730; 87641; 92928; 93005; 93306; 93458; 94640; 94664; 99152; 99153; 99285; C1725; C1760; C1769; C1874; C1893; G0269; J0583; J1644; J2250; J7030; Q0163; Q9967

== ENCOUNTER 2017-08-31 23:45 | Inpatient (IN) | payer OTHER, MEDICARE ==
[~2017-08-31] VITALS: Ht 167.6 cm; Wt 95.1 kg
[~2017-08-31 23:45] MED LIST changes: +METO1TAB42 PO; -NEBULIZER1 MI1; +PLAV75TA29 PO
[2017-09-01] VITALS: BP 182/93; PULSE 65; RESP 18; TEMP 97.6; O2SAT 96
[2017-09-01] MEDS ORDERED: ACETAMINOPHEN 325 MG TAB PO PRN (01:00)
[2017-09-01] MEDS ORDERED: NICOTINE 21 MG/24 HR PATCH T-DERMAL PRN (01:00)
[2017-09-01] MEDS ORDERED: ALUMINUM/MAGNESIUM/SIMETH 30 ML CUP PO PRN (01:00)
[2017-09-01] MEDS ORDERED: MAGNESIUM HYDROXIDE SUSP 30 ML CUP PO PRN (01:00)
[2017-09-01 06:07] VITALS: BP 156/87; PULSE 63; RESP 18; TEMP 98
[2017-09-01] MEDS ORDERED: hydrOXYzine HCL 50 MG TAB PO PRN (10:15)
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
[2017-09-01] MEDS: METOPROLOL SUCCINATE 25 MG EXTENDED RELEASE TAB PO SCH (12:00)
[2017-09-01] MEDS: FUROSEMIDE 20 MG TAB PO SCH (12:00)
[2017-09-01] MEDS: BUDESONIDE-FORMOTEROL 80/4.5 MCG INHALER INH SCH ×2 (12:00→21:00)
[2017-09-01] MEDS: CLOPIDOGREL 75 MG TAB PO SCH (12:00)
[2017-09-01] MEDS: RESP: ALBUTEROL 2.5 MG/IPRATROPIUM 0.5 MG NEB (SCH) NEB ×3 (12:30→22:00)
[2017-09-01] MEDS: SACUBITRIL/VALSARTAN 24 MG-26 MG TAB PO SCH ×3 (12:30→22:13)
[2017-09-01] MEDS: PRAVASTATIN SOD 40 MG TAB PO SCH (12:30)
[2017-09-01] MEDS: ESCITALOPRAM OXALATE 10 MG TAB PO SCH (12:30)
[2017-09-01] MEDS: PANTOPRAZOLE SOD 40 MG DELAYED RELEASE TAB PO SCH (12:30)
--- NOTE | 2017-09-01 15:58 | PD.CONS ---
HPI Service [facility] Hospitalists Consult Requested By Dr. Velazquez Reason for Consult Medical management Primary Care Physician Ernst Swenson M.D. Diagnoses: History of Present Illness This is a 77-year-old male who was recently admitted due to NSTEMI. During his hospitalization at [facility] in [place] patient was also dealing with depression due to his home situation. He expressed suicidal ideations so was Burt act and transfer to psychiatry since patient was stable medically. Patient had no complaints to me. He stated that he felt like if he went home he would be in danger. He denies any chest pain, shortness of breathing, palpitation, lightheadedness dizziness. All other review of system reviewed and negative. Past Family Social History Allergies: Coded Allergies: No Known Allergies (Verified Allergy, Unknown, 05/14/17) Past Medical History HTN, CAD s/p CABD and Cardiac Stents, h/o GI Bleed, Anxiety, Depression, Hyperlipidemia and COPD Past Surgical History Hernia Repair, CABG, Cardiac Stent, Right CEA, Tonsillectomy Reported Medications Reported Meds & Active Scripts Active Metoprolol Succinate ER 24 HR (Metoprolol Succinate) 25 Mg Tab 25 Mg PO DAILY Plavix (Clopidogrel Bisulfate) 75 Mg Tab 75 Mg PO DAILY Symbicort Inh (Budesonide/Formoterol Fumarate) 80-4.5 Mcg/Act Aero 1 Puff INH Q12HR [Albuterol-Ipratropium Neb] 1 AMPULE Nebu 1 Ampule INH Q6HR NEB Furosemide 20 Mg Tab 20 Mg PO DAILY Entresto (Sacubitril-Valsartan) 24-26 Mg Tab 1 Tab PO BID Reported Pantoprazole (Pantoprazole Sodium) 40 Mg Tab 40 Mg PO DAILY Simvastatin 20 Mg Tab 20 Mg PO DAILY Aspirin 325 Mg Tab 325 Mg PO DAILY Active Ordered Medications Current Medications Acetaminophen (Tylenol) 650 mg Q4H PRN PO Pain 1-5 or Temp >101F; Start at 01:00 Magnesium Hydroxide (Milk Of Magnesia Liq) 30 ml DAILY PRN PO CONSTIPATION; Start 09/01/17 at 01:00 Al Hydrox/Mg Hydrox/Simethicone (Mag-Al Plus Susp Liq) 30 ml Q6H PRN PO DYSPEPSIA; Start 09/01/17 at 01:00 Nicotine (Habitrol 21 Mg Patch.24 Hr) 1 patch DAILY PRN T-DERMAL NICOTINE CRAVINGS; Start 09/01/17 at 01:00 Miscellaneous Information 1 HS T-DERMAL ; Start 09/01/17 at 21:00 Hydroxyzine HCl (Atarax) 50 mg Q6H PRN PO ANXIETY; Start 09/01/17 at 10:15 Aspirin (Aspirin) 325 mg DAILY PO ; Start 09/02/17 at 09:00 Budesonide/ Formoterol Fumarate (Symbicort 80-4.5 Mcg Inh) 1 puff Q12HR INH Last administered on 09/01/17at 12:00; Start 09/01/17 at 12:00 Clopidogrel Bisulfate (Plavix) 75 mg DAILY PO Last administered on 09/01/17 12: 00; Start 09/01/17 at 12:00 Furosemide (Lasix) 20 mg DAILY PO Last administered on 09/01/17at 12:00; Start at 12:00 Metoprolol Succinate (Toprol Xl) 25 mg DAILY PO Last administered on 09/01/17at 12:00; Start 09/01/17 at 12:00 Pantoprazole Sodium (Protonix) 40 mg DAILY PO Last administered on 09/01/17 12: 30; Start 09/01/17 at 12:30 Sacubitril/ Valsartan (Entresto 24-26 Mg) 1 tab BID PO Last administered on 09/01at 12:30; Start 09/01/17 at 12:30 Pravastatin Sodium (Pravachol) 40 mg DAILY PO Last administered on 09/01/17 12: 30; Start 09/01/17 at 12:30 Albuterol/ Ipratropium (Duoneb Neb) 1 ampule Q6HR NEB NEB Last administered on 09/01/17at 15:05; Start 09/01/17 at 12:30 Escitalopram Oxalate (Lexapro) 10 mg DAILY PO Last administered on 09/01/17 12: 30; Start 09/01/17 at 12:30 Family History Reviewed. No h/o DM or CAD Social History History of alcohol abuse, quit 40yrs ago. Negative for tobacco or drugs. Physical Exam Vital Signs Vital Signs Date Time Temp Pulse Resp B/P (MAP) Pulse Ox O2 Delivery O2 Flow Rate FiO2 09/01/17 06:07 98.0 63 18 156/87 (110) 09/01/17 00:00 97.6 65 18 182/93 (122) 96 Physical Exam GENERAL: This is a well-nourished, well-developed patient, in no apparent distress. SKIN: No rashes, ecchymoses or lesions. Cool and dry. HEAD: Atraumatic. Normocephalic. No temporal or scalp tenderness. EYES: Pupils equal round and reactive. Extraocular motions intact. No scleral icterus. No injection or drainage. ENT: Nose without bleeding, purulent drainage or septal hematoma. Throat without erythema, tonsillar hypertrophy or exudate. Uvula midline. Airway patent. NECK: Trachea midline. No JVD or lymphadenopathy. Supple, nontender, no meningeal signs. CARDIOVASCULAR: Regular rate and rhythm without murmurs, gallops, or rubs. RESPIRATORY: Clear to auscultation. Breath sounds equal bilaterally. No wheezes , rales, or rhonchi. GASTROINTESTINAL: Abdomen soft, non-tender, nondistended. No hepato-splenomegaly , or palpable masses. No guarding. MUSCULOSKELETAL: Extremities without clubbing, cyanosis, or edema. No joint tenderness, effusion, or edema noted. No calf tenderness. Negative Homans sign bilaterally. NEUROLOGICAL: Awake and alert. Cranial nerves II through XII intact. Motor and sensory grossly within normal limits. Five out of 5 muscle strength in all muscle groups. Normal speech. Assessment and Plan Assessment and Plan This is a 77 y/o was recently admitted at [facility] in [place] due to NSTEMI and discharged to inpatient psychiatry secondary to depression and suicidal ideations Depression/suicidal ideation -Management per inpatient psychiatrist. Patient was started on Lexapro. NSTEMI - s/p stent curyung left circumflex. asymptomatic. -Continue with Entresto 24-26 one bid, metoprolol succinate 25 mg qd, furosemide 20 mg qd, aspirin 325 mg qd, plus clopidogrel 75 mg qd. Follow up in [address] Devi. COPD: - Chronic Respiratory Failure, continue home Symbicort, DuoNeb prn. DVT Prophylaxis: Bilateral SCDs. Encourage ambulation. Code Status DNR Discussed Condition With Patient Mamta Brito MD Sep 01, 2017 15:58
[2017-09-01 17:36] VITALS: BP 149/88; PULSE 67; RESP 19; TEMP 97.4; O2SAT 98
[2017-09-01] MEDS: REMOVE OLD NICOTINE PATCH T-DERMAL SCH (21:00)
[2017-09-02] MEDS: RESP: ALBUTEROL 2.5 MG/IPRATROPIUM 0.5 MG NEB (SCH) NEB ×4 (04:00→21:01)
[2017-09-02 05:43] VITALS: BP 141/76; PULSE 61; RESP 18; TEMP 98.2; O2SAT 96
[2017-09-02 06:00] VITALS: BP 141/76; PULSE 61; RESP 18; TEMP 98.2; O2SAT 96
[2017-09-02 06:54] LABS: BICARBONATE 22.6 MEQ/L (21.0-32.0); BLOOD UREA NITROGEN 17 MG/DL (7-18); CALCIUM 8.9 MG/DL (8.5-10.1); CHLORIDE 106 MEQ/L (98-107); CREATININE 1.32 MG/DL (0.60-1.30); GLOMERULAR FILTRATION RATE 53 ML/MIN (>89); GLUCOSE,RANDOM 91 MG/DL (74-106); SODIUM (NA) 138 MEQ/L (136-145)
[2017-09-02 06:55] LABS: CHOLESTEROL 167 MG/DL (120-200); TRIGLYCERIDES 109 MG/DL (42-150)
[2017-09-02 06:58] LABS: CHOLESTEROL/ HDL RATIO 3.91 RATIO; HDL CHOLESTEROL 42.7 MG/DL (40.0-60.0); LDL CHOLESTEROL 103 MG/DL (0-99)
[2017-09-02] MEDS: ESCITALOPRAM OXALATE 10 MG TAB PO SCH (08:06)
[2017-09-02] MEDS: PRAVASTATIN SOD 40 MG TAB PO SCH (08:06)
[2017-09-02] MEDS: ASPIRIN 325 MG TAB PO SCH (08:06)
[2017-09-02] MEDS: CLOPIDOGREL 75 MG TAB PO SCH (08:06)
[2017-09-02] MEDS: METOPROLOL SUCCINATE 25 MG EXTENDED RELEASE TAB PO SCH (08:06)
[2017-09-02] MEDS: PANTOPRAZOLE SOD 40 MG DELAYED RELEASE TAB PO SCH (08:07)
[2017-09-02] MEDS: FUROSEMIDE 20 MG TAB PO SCH (08:07)
--- NOTE | 2017-09-02 11:22 | HHI.PYPN ---
Subjective Chief Complaint: severe recurrent depression with suicidal ideation and intent Remarks Patient seen in the low with nurse Doreen counselor Faye., Chart review, patient discussed with nurse. Patient's mood is improved somewhat he said the slept somewhat better last night. Did discuss first placement options. It appears she went to quite willing to find a small [facility] would accept him. Continues with suicidal ideation though it appears somewhat environmental at this time. However I feel he still is a high risk for suicide. For now continue treatment Review of Systems Except as stated in HPI: all other systems reviewed are Neg Mental Status Examination Appearance: Appropriate Consciousness: Alert Orientation: x4 Motor Activity: Other (patient uses walker) Speech: Unremarkable Language: Adequate Fund of Knowledge: Adequate Attention and Concentration: Other (fair) Memory: Unremarkable Mood: Sad Affect: Other (decreased range and intensity) Thought Process & Associations: Intact Thought Content: Appropriate Hallucination Type: None Delusion Type: None Suicidal Ideation: Yes Suicidal Plan: No Suicidal Intention: Yes Homicidal Ideation: No Homicidal Plan: No Homicidal Intention: No Insight: Adequate Judgment: Adequate Results Labs Test 09/02/17 06:10 Blood Urea Nitrogen 17 MG/DL Creatinine 1.32 MG/DL Random Glucose 91 MG/DL Calcium Level 8.9 MG/DL Sodium Level 138 MEQ/L Potassium Level 4.1 MEQ/L Chloride Level 106 MEQ/L Carbon Dioxide Level 22.6 MEQ/L Anion Gap 9 MEQ/L Estimat Glomerular Filtration Rate 53 ML/MIN Triglycerides Level 109 MG/DL Cholesterol Level 167 MG/DL LDL Cholesterol 103 MG/DL HDL Cholesterol 42.7 MG/DL Cholesterol/HDL Ratio 3.91 RATIO Vitals/IOs Vital Signs Date Time Temp Pulse Resp B/P (MAP) Pulse Ox O2 Delivery O2 Flow Rate FiO2 09/02/17 06:00 98.2 61 18 141/76 (97) 96 Intake and Output 09/02/17 09/02/17 09/03/17 08:00 16:00 00:00 Intake Total 360 ml Balance 360 ml Assessment & Plan Problem List: (1) Major depressive disorder, recurrent severe without psychotic features ICD Codes: F33.2 - Major depressive disorder, recurrent severe without psychotic features (2) Alcohol use disorder, severe, in sustained remission ICD Codes: F10.21 - Alcohol dependence, in remission Assessment & Plan Estimated LOS: days patient remains depressed and suicidal though his after slightly improved. Is showing some good ability to process discharge plans. For now continue treatment Justification for Cont. Inpt. At this time patient will decompensate in place to the lower level of care Discharge Planning Will attempt patient to sign appropriate placement CORRECTION versus small fdc versus residential Request HC Surrog/Guard Advoc?: No Marquise Velazquez MD Sep 02, 2017 11:22
[2017-09-02] MEDS: BUDESONIDE-FORMOTEROL 80/4.5 MCG INHALER INH SCH ×2 (11:49→20:26)
[2017-09-02] MEDS: SACUBITRIL/VALSARTAN 24 MG-26 MG TAB PO SCH (11:49)
[2017-09-02 16:27] LABS: HEMOGLOBIN A1C 6.3 % (4.3-6.0)
--- NOTE | 2017-09-02 17:23 | HHI.PR ---
Subjective Remarks Follow-up on patient with recent NSTEMI, COPD. Patient seen and examined. Patient complaints of 2 episodes this morning of sharp left-sided nonradicular chest pain that occurred at rest. He denies any associated shortness of breath , diaphoresis, dizziness, nausea or vomiting. States chest pain resolved on its own within a few minutes. He is been up and ambulating around the unit without any recurrence of chest pain. He denies any fever or chills. Reports chronic shortness of breath that is unchanged. Objective Vitals Vital Signs Date Time Temp Pulse Resp B/P (MAP) Pulse Ox O2 Delivery O2 Flow Rate FiO2 09/02/17 06:00 98.2 61 18 141/76 (97) 96 09/02/17 05:43 98.2 61 18 141/76 (97) 96 09/01/17 17:36 97.4 67 19 149/88 (108) 98 I/O 09/01/17 09/01/17 09/01/17 09/02/17 09/02/17 09/02/17 07:00 15:00 23:00 07:00 15:00 23:00 Intake Total 240 ml 1420 ml Balance 240 ml 1420 ml Intake Oral 240 ml 1420 ml # Voids 3 2 3 2 Result Diagram: 09/02/17 0610 Objective Remarks GENERAL: This is a well-nourished, well-developed elderly male patient, in no apparent distress. Awake and alert. Witnessed ambulating in the unit with the assistance of walker. SKIN: Cool and dry. HEAD: Atraumatic. Normocephalic. EYES: Extraocular motions intact. No scleral icterus. No injection or drainage. ENT: Nose without bleeding. Airway patent. MMM. NECK: Trachea midline. CARDIOVASCULAR: Regular rate and rhythm without murmurs, gallops, or rubs. RESPIRATORY: Clear to auscultation. Breath sounds equal bilaterally. No wheezes , rales, or rhonchi. GASTROINTESTINAL: Abdomen soft, non-tender, nondistended. MUSCULOSKELETAL: Extremities without clubbing or cyanosis. Trace bilateral lower extremity edema. NEUROLOGICAL: Awake and alert. Able to move all extremities spontaneously. No focal neurologic findings appreciated. Normal speech. PSYCHIATRIC: Appears to have appropriate insight and judgment. Calm and pleasant. Medications and IVs Current Medications Medications (Trade) Dose Ordered Sig/Gadiel Route Start Time Stop Time Status Last Admin (Tylenol) 650 mg Q4H PRN PO 09/01/17 01:00 (Milk Of Magnesia Liq) 30 ml DAILY PRN PO 09/01/17 01:00 (Mag-Al Plus Susp Liq) 30 ml Q6H PRN PO 09/01/17 01:00 (Habitrol 21 Mg Patch.24 Hr) 1 patch DAILY PRN T-DERMAL 09/01/17 01:00 Miscellaneous Information 1 HS T-DERMAL 09/01/17 21:00 (Atarax) 50 mg Q6H PRN PO 09/01/17 10:15 (Aspirin) 325 mg DAILY PO 09/02/17 09:00 09/02/17 08:06 (Symbicort 80-4.5 Mcg Inh) 1 puff Q12HR INH 09/01/17 12:00 09/02/17 11:49 (Plavix) 75 mg DAILY PO 09/01/17 12:00 09/02/17 08:06 (Lasix) 20 mg DAILY PO 09/01/17 12:00 09/02/17 08:07 (Toprol Xl) 25 mg DAILY PO 09/01/17 12:00 09/02/17 08:06 (Protonix) 40 mg DAILY PO 09/01/17 12:30 09/02/17 08:07 (Entresto 24-26 Mg) 1 tab BID PO 09/01/17 12:30 09/02/17 11:49 (Pravachol) 40 mg DAILY PO 09/01/17 12:30 09/02/17 08:06 (Duoneb Neb) 1 ampule Q6HR NEB NEB 09/01/17 12:30 09/02/17 15:23 (Lexapro) 10 mg DAILY PO 09/01/17 12:30 09/02/17 08:06 A/P Assessment and Plan This is a 77 y/o was recently admitted at [facility] in [place] due to NSTEMI and discharged to inpatient psychiatry secondary to depression and suicidal ideations Depression/suicidal ideation -Management per inpatient psychiatrist. Patient was started on Lexapro. Recent NSTEMI previous CABG -s/p stent circle left circumflex. -Continue with Entresto 24-26 one bid, metoprolol succinate 25 mg qd, furosemide 20 mg qd, aspirin 325 mg qd, plus clopidogrel 75 mg qd. Follow up in [address] Devi. -Now complaining of brief episodes of chest pain x 2 at rest. Obtain serial troponin and EKGs. Ischemic cardiomyopathy, compensated -EF 30-35% on echo earlier this month, improved compared to 20-25% in 04/2017. -Continue Entresto and beta rene -Monitor for any evidence of fluid overload Hypertension -Antihypertensives as stated above. Still with some mild BP elevations. -Continue to monitor trend and adjust treatment as indicated. SEAN on CKD -Creatinine 1.32, was 1.06 yesterday -Hold Entresto -encourage by mouth intake -Repeat BMP in a.m. COPD, not in acute exacerbation Chronic Respiratory Failure -continue home Symbicort, DuoNeb prn. Iron deficiency anemia -Iron 31, TIBC 448, percent saturation 6.9, ferritin 8 -Begin by mouth iron supplementation with vitamin C to help with absorption -No active bleeding -Monitor CBC as indicated DVT Prophylaxis: Bilateral SCDs. Encourage ambulation. Bertha Saini Sep 02, 2017 17:23
[2017-09-02] MEDS ORDERED: PILL SPLITTER OTHER PRN (17:30)
[2017-09-02 17:35] VITALS: BP 115/63; PULSE 61; RESP 18; TEMP 98.6; O2SAT 98
[2017-09-02] MEDS: FERROUS SULFATE 325 MG (65 MG ELEMENTAL IRON) TAB PO SCH (20:25)
[2017-09-02] MEDS: ASCORBIC ACID 500 MG TAB PO SCH (20:25)
[2017-09-02] MEDS: REMOVE OLD NICOTINE PATCH T-DERMAL SCH (20:28)
[2017-09-03 00:44] LABS: TROPONIN I 0.24 NG/ML (0.02-0.05)
[2017-09-03 00:48] LABS: MAGNESIUM 2.3 MG/DL (1.5-2.5)
[2017-09-03] MEDS: RESP: ALBUTEROL 2.5 MG/IPRATROPIUM 0.5 MG NEB (SCH) NEB ×2 (03:42→10:37)
[2017-09-03 05:47] VITALS: BP 166/88; PULSE 63; RESP 16; TEMP 98; O2SAT 95
[2017-09-03 07:04] LABS: BICARBONATE 25.8 MEQ/L (21.0-32.0); CALCIUM 8.9 MG/DL (8.5-10.1); CREATININE 1.31 MG/DL (0.60-1.30)
[2017-09-03 07:08] LABS: TROPONIN I 0.26 NG/ML (0.02-0.05)
[2017-09-03 09:28] VITALS: BP 166/88; PULSE 63; RESP 16; TEMP 98; O2SAT 95
[2017-09-03] MEDS: BUDESONIDE-FORMOTEROL 80/4.5 MCG INHALER INH SCH (09:46)
[2017-09-03] MEDS: FERROUS SULFATE 325 MG (65 MG ELEMENTAL IRON) TAB PO SCH (09:48)
[2017-09-03] MEDS: ASCORBIC ACID 500 MG TAB PO SCH (09:48)
[2017-09-03] MEDS: ESCITALOPRAM OXALATE 10 MG TAB PO SCH (09:48)
[2017-09-03] MEDS: CLOPIDOGREL 75 MG TAB PO SCH (09:48)
[2017-09-03] MEDS: FUROSEMIDE 20 MG TAB PO SCH (09:49)
[2017-09-03] MEDS: ASPIRIN 325 MG TAB PO SCH (09:49)
[2017-09-03] MEDS: PRAVASTATIN SOD 40 MG TAB PO SCH (09:49)
[2017-09-03] MEDS: METOPROLOL SUCCINATE 25 MG EXTENDED RELEASE TAB PO SCH (09:50)
[2017-09-03] MEDS: PANTOPRAZOLE SOD 40 MG DELAYED RELEASE TAB PO SCH (09:50)
[2017-09-03] MEDS ORDERED: METO1TAB42 PO (12:01)
[2017-09-03] MEDS ORDERED: FURO20TA PO (12:01)
[2017-09-03] MEDS ORDERED: SACU1TAB PO (12:01)
[2017-09-03] MEDS ORDERED: SYMB80AE INH (12:01)
[2017-09-03] MEDS ORDERED: ASPI-183 PO (12:01)
[2017-09-03] MEDS ORDERED: PLAV75TA29 PO (12:01)
[2017-09-03] MEDS ORDERED: ESCI10TA PO (12:01)
[2017-09-03] MEDS ORDERED: PANT40TA3 PO (12:01)
[2017-09-03] MEDS ORDERED: Albuterol-Ipratropium Neb INH (12:01)
[2017-09-03] MEDS ORDERED: ASCO500 PO (12:01)
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
--- NOTE | 2017-09-03 21:26 | EKG ---
Date Performed: 09/02/2017 Time Performed: 20:32:48 PTAGE: 77 years EKG: SINUS BRADYCARDIA INFERIOR MYOCARDIAL INFARCTION , PROBABLY OLD T-WAVE ABNORMALITY, CONSIDE R LATERAL ISCHEMIA ABNORMAL ECG PREVIOUS TRACING : 09/02/2017 15.35 No significant change from previous tracing noted. DOCTOR: Zach Devi Interpretating Date/Time 09/03/2017 21:24:41
--- NOTE | 2017-09-03 21:39 | EKG ---
Date Performed: 09/02/2017 Time Performed: 15:35:51 PTAGE: 77 years EKG: SINUS BRADYCARDIA INFERIOR MYOCARDIAL INFARCTION , PROBABLY OLD T-WAVE ABNORMALITY, CONSIDE R LATERAL ISCHEMIA ABNORMAL ECG PREVIOUS TRACING : 08/29/2017 19.57 No significant change from previous tracing noted. DOCTOR: Zach Devi Interpretating Date/Time 09/03/2017 21:37:34
== END 2017-09-03 14:05 | disposition home or self-care (01) | DRG 885 ==
LOC: H250 23:45
PROVIDERS: ADMIT Psychiatry & Neurology Psychiatry; ATTEND Psychiatry & Neurology Psychiatry
DX: F33.2 Major depressive disorder, recurrent severe without psychotic features (principal); I21.4 Non-ST elevation (NSTEMI) myocardial infarction; N17.9 Acute kidney failure, unspecified; J96.10 Chronic respiratory failure, unspecified whether with hypoxia or hypercapnia; R45.851 Suicidal ideations; F10.21 Alcohol dependence, in remission; I12.9 Hypertensive chronic kidney disease with stage 1 through stage 4 chronic kidney disease, or unspecified chronic kidney disease; D50.9 Iron deficiency anemia, unspecified; J44.9 Chronic obstructive pulmonary disease, unspecified; I25.5 Ischemic cardiomyopathy; I25.10 Atherosclerotic heart disease of native coronary artery without angina pectoris; N18.9 Chronic kidney disease, unspecified; E78.5 Hyperlipidemia, unspecified; Z66 Do not resuscitate; Z95.1 Presence of aortocoronary bypass graft; Z95.5 Presence of coronary angioplasty implant and graft
CPT/HCPCS: 80048; 80061; 83036; 83735; 84484; 93005; 94640; 94664

== ENCOUNTER 2017-10-02 11:55 | Inpatient (IN) | payer OTHER, MEDICARE ==
[~2017-10-02] VITALS: Ht 167.6 cm; Wt 94.2 kg
[~2017-10-02 11:55] MED LIST changes: +ASCO500 PO; +ESCI10TA PO; -METO25TA3 PO
[2017-10-02 12:01] VITALS: BP 178/84; PULSE 63; RESP 16; TEMP 97.9; O2SAT 96
--- NOTE | 2017-10-02 14:27 | PD ---
HPI Chief Complaint: Psychiatric Symptoms Time Seen by Provider: 14:25 Travel History International Travel<30 days: No Contact w/Intl Traveler<30days: No Traveled to known affect area: No History of Present Illness HPI 77-year-old male presents to the emergency department voluntarily for psychiatric evaluation. He apparently was expressing thoughts of suicide to his social worker palliative care and was told he should come to the emergency department for evaluation, otherwise he would be Burt acted. Patient reports thoughts of suicide all of his life. He says he has been depressed a long time. He has heart condition and follows the [facility] and last saw them last week. He has history of AK with stent placement, COPD, hypertension. Has history of alcoholism and has been sober 52 years. Reports current thoughts of suicide, but does not have a plan. He has attempted suicide in the past by overdosing. He denies auditory or visual hallucinations. He says he talks to and listens to God. Denies illicit drug use. Symptoms are moderate to severe in severity. Unknown onset. Unknown duration. No known relieving factors. Aggravated by his health status. Primary care provider is Dr. Heck. [facility] is his fusing machine operator. No known allergies. Takes Plavix. Has no other medical complaints. Denies chest pain, shortness of breath, abdominal pain, vomiting, fevers, change in urine or stool. No other modifying factors or associated signs and symptoms. PFSH Past Medical History Hx Anticoagulant Therapy: Yes Arthritis: Yes (GENERALIZED) Blood Disorders: No Anxiety: Yes Depression: Yes Heart Rhythm Problems: No Cancer: No Cardiac Catheterization: Yes Cardiovascular Problems: Yes (CAD, HTN, CABG, AK, CARDIAC ARREST) High Cholesterol: Yes Chest Pain: Yes Congestive Heart Failure: Yes COPD: Yes Diabetes: No Endocrine: No Gastrointestinal Disorders: Yes (irritable bowel dz) Genitourinary: Yes Headaches: No Hiatal Hernia: Yes Hypertension: Yes Immune Disorder: No Kidney Stones: No Musculoskeletal: Yes Neurologic: Yes Psychiatric: Yes (untreated Depression for many years ) Respiratory: Yes (COPD) Myocardial Infarction: Yes Renal Failure: No Seizures: No Sleep Apnea: Yes Past Surgical History Abdominal Surgery: Yes (HERNIA REPAIR) AICD: No Cardiac Surgery: Yes (CABG 2002) Coronary Artery Bypass Graft: Yes Coronary Stent: Yes (X3) Ear Surgery: No Endocrine Surgery: No Eye Surgery: Yes (IMPLANTS) Gynecologic Surgery: No Joint Replacement: No Neurologic Surgery: Yes (R CEA) Oral Surgery: Yes (T&A) Other Surgery: Yes (CAROTIDS) Social History Alcohol Use: No (QUIT 40YRS AGO) Tobacco Use: No Substance Use: No Allergies-Medications (Allergen,Severity, Reaction): Coded Allergies: No Known Allergies (Verified Allergy, Unknown, 10/02/17) Reported Meds & Prescriptions Reported Meds & Active Scripts Active Escitalopram (Escitalopram Oxalate) 10 Mg Tab 10 Mg PO DAILY Sm Chewable C (Ascorbic Acid) 500 Mg Chw 250 Mg PO BID Metoprolol Succinate ER 24 HR (Metoprolol Succinate) 25 Mg Tab 25 Mg PO DAILY Plavix (Clopidogrel Bisulfate) 75 Mg Tab 75 Mg PO DAILY Symbicort Inh (Budesonide/Formoterol Fumarate) 80-4.5 Mcg/Act Aero 1 Puff INH Q12HR Pantoprazole (Pantoprazole Sodium) 40 Mg Tab 40 Mg PO DAILY [Albuterol-Ipratropium Neb] 1 AMPULE Nebu 1 Ampule INH Q6HR NEB Furosemide 20 Mg Tab 20 Mg PO DAILY Entresto (Sacubitril-Valsartan) 24-26 Mg Tab 1 Tab PO BID Aspirin 325 Mg Tab 325 Mg PO DAILY Reported Simvastatin 20 Mg Tab 20 Mg PO DAILY Review of Systems Except as stated in HPI: all other systems reviewed are Neg Physical Exam Narrative GENERAL: Well-nourished, well-developed elderly male patient, in no acute distress SKIN: Warm and dry. HEAD: Atraumatic. Normocephalic. EYES: Pupils equal and round. ENT: Mucosa pink and moist. NECK: Supple. Trachea midline. CARDIOVASCULAR: Regular rate and rhythm. No murmur appreciated. RESPIRATORY: No accessory muscle use. Clear to auscultation. Breath sounds equal bilaterally. GASTROINTESTINAL: Abdomen soft, non-tender, nondistended. Hepatic and splenic margins not palpable. Bowel sounds are active 4 quadrants. MUSCULOSKELETAL: No obvious deformities. No clubbing. No cyanosis. No edema. NEUROLOGICAL: Awake and alert. Oriented 3. No obvious cranial nerve deficits. Motor grossly within normal limits. Normal speech. Moves all extremities. 5/5 strength to all extremities. PSYCHIATRIC: No delusional thought processes. No hallucinations. Data Data Last Documented VS Vital Signs Date Time Temp Pulse Resp B/P (MAP) Pulse Ox O2 Delivery O2 Flow Rate FiO2 10/02/17 20:23 69 20 168/79 (108) 98 Room Air 10/02/17 12:01 97.9 Orders Orders Complete Blood Count With Diff (10/02/17 14:27) Comprehensive Metabolic Panel (10/02/17 14:27) Thyroid Stimulating Hormone (10/02/17 14:27) Psych Screen (10/02/17 14:27) Drug Screen, Random Urine (10/02/17 14:27) Alcohol (Ethanol) (10/02/17 14:27) Salicylates (Aspirin) (10/02/17 14:27) Tylenol (Acetaminophen) (10/02/17 14:27) Diet Regular Basic (10/02/17 Dinner) Sacubitril-Valsartan 24-26 Mg (Entresto (10/02/17 21:00) Admit Order (Ed Use Only) (10/03/17 ) Labs Laboratory Tests Test 10/02/17 14:45 10/02/17 15:00 White Blood Count 7.5 TH/MM3 Red Blood Count 4.81 MIL/MM3 Hemoglobin 12.0 GM/DL Hematocrit 37.3 % Mean Corpuscular Volume 77.6 FL Mean Corpuscular Hemoglobin 25.0 PG Mean Corpuscular Hemoglobin Concent 32.3 % Red Cell Distribution Width 16.5 % Platelet Count 273 TH/MM3 Mean Platelet Volume 7.4 FL Neutrophils (%) (Auto) 66.8 % Lymphocytes (%) (Auto) 19.6 % Monocytes (%) (Auto) 10.4 % Eosinophils (%) (Auto) 2.4 % Basophils (%) (Auto) 0.8 % Neutrophils # (Auto) 5.0 TH/MM3 Lymphocytes # (Auto) 1.5 TH/MM3 Monocytes # (Auto) 0.8 TH/MM3 Eosinophils # (Auto) 0.2 TH/MM3 Basophils # (Auto) 0.1 TH/MM3 CBC Comment DIFF FINAL Differential Comment Blood Urea Nitrogen 18 MG/DL Creatinine 1.20 MG/DL Random Glucose 90 MG/DL Total Protein 7.6 GM/DL Albumin 3.8 GM/DL Calcium Level 9.0 MG/DL Alkaline Phosphatase 61 U/L Aspartate Amino Transf (AST/SGOT) 30 U/L Alanine Aminotransferase (ALT/SGPT) 34 U/L Total Bilirubin 0.3 MG/DL Sodium Level 140 MEQ/L Potassium Level 4.5 MEQ/L Chloride Level 106 MEQ/L Carbon Dioxide Level 24.6 MEQ/L Anion Gap 9 MEQ/L Estimat Glomerular Filtration Rate 59 ML/MIN Thyroid Stimulating Hormone 3rd Gen 0.871 uIU/ML Salicylates Level LESS THAN 1.7 MG/DL Acetaminophen Level LESS THAN 2.0 MCG/ML Ethyl Alcohol Level LESS THAN 3 MG/DL Urine Opiates Screen NEG Urine Barbiturates Screen NEG Urine Amphetamines Screen NEG Urine Benzodiazepines Screen NEG Urine Cocaine Screen NEG Urine Cannabinoids Screen NEG MDM Medical Decision Making Medical Screen Exam Complete: Yes Emergency Medical Condition: Yes Medical Record Reviewed: Yes Differential Diagnosis Depression, suicidal ideation, medical clearance for psychiatric admission Narrative Course Patient presents voluntarily. Physical examination and vital signs are essentially unremarkable. Patient has no medical complaints to report. Psych screen has been ordered. If the laboratory results are unremarkable, the patient will be medically cleared for psychiatric evaluation and disposition. Diagnosis Primary Impression: Medical clearance for psychiatric admission Condition: Stable Fabienne Corado [employer] Oct 02, 2017 14:27
[2017-10-02 15:05] LABS: BASOPHIL # 0.1 TH/MM3 (0-0.2); BASOPHIL % 0.8 % (0.0-2.0); EOSINOPHIL # 0.2 TH/MM3 (0-0.4); EOSINOPHIL % 2.4 % (0.0-4.0); HEMATOCRIT 37.3 % (39.0-51.0); LYMPH % 19.6 % (9.0-44.0); LYMPHOCYTE # 1.5 TH/MM3 (1.0-4.8); MEAN CELL VOLUME 77.6 FL (80.0-100.0); MEAN CORPUSCULAR HGB CONC 32.3 % (32.0-36.0); MEAN PLATELET VOLUME 7.4 FL (7.0-11.0); MONO % 10.4 % (0.0-8.0); MONOCYTE # 0.8 TH/MM3 (0-0.9); NEUT % 66.8 % (16.0-70.0); PLATELET COUNT 273 TH/MM3 (150-450); RED BLOOD COUNT 4.81 MIL/MM3 (4.50-5.90); RED CELL DISTRIBUTION WIDTH 16.5 % (11.6-17.2); WHITE BLOOD COUNT 7.5 TH/MM3 (4.0-11.0)
[2017-10-02 15:35] VITALS: BP 105/76; PULSE 95; RESP 16; O2SAT 97
[2017-10-02 15:57] LABS: ACETAMINOPHEN LESS THAN 2.0 MCG/ML (10.0-30.0); ALBUMIN 3.8 GM/DL (3.4-5.0); ALKALINE PHOSPHATASE 61 U/L (45-117); ALT (GPT) 34 U/L (12-78); AST (GOT) 30 U/L (15-37); BICARBONATE 24.6 MEQ/L (21.0-32.0); BLOOD UREA NITROGEN 18 MG/DL (7-18); CHLORIDE 106 MEQ/L (98-107); GLOMERULAR FILTRATION RATE 59 ML/MIN (>89); GLUCOSE,RANDOM 90 MG/DL (74-106); SODIUM (NA) 140 MEQ/L (136-145); TOTAL BILIRUBIN ADULT 0.3 MG/DL (0.2-1.0); TOTAL PROTEIN 7.6 GM/DL (6.4-8.2)
[2017-10-02 20:23] VITALS: BP 168/79; PULSE 69; RESP 20; O2SAT 98
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
[2017-10-02] MEDS ORDERED: SACUBITRIL/VALSARTAN 24 MG-26 MG TAB PO SCH (21:00)
[2017-10-03] MEDS ORDERED: NICOTINE 21 MG/24 HR PATCH T-DERMAL PRN (00:30)
[2017-10-03] MEDS ORDERED: MAGNESIUM HYDROXIDE SUSP 30 ML CUP PO PRN (00:30)
[2017-10-03] MEDS ORDERED: ACETAMINOPHEN 325 MG TAB PO PRN (00:30)
[2017-10-03] MEDS ORDERED: ALUMINUM/MAGNESIUM/SIMETH 30 ML CUP PO PRN (00:30)
[2017-10-03] MEDS ORDERED: PILL SPLITTER OTHER PRN (00:30)
[2017-10-03] MEDS ORDERED: REMOVE OLD PATCH T-DERMAL PRN (00:30)
[2017-10-03 01:30] VITALS: BP 184/98; PULSE 62; RESP 16; TEMP 98.2; O2SAT 94
[2017-10-03] MEDS ORDERED: cloNIDine HCL 0.1 MG TAB PO ONE (02:45)
[2017-10-03] MEDS: RESP: ALBUTEROL 2.5 MG/IPRATROPIUM 0.5 MG NEB (SCH) NEB ×2 (04:14→10:00)
[2017-10-03 06:19] VITALS: BP 111/57; PULSE 55; RESP 16; TEMP 98.1; O2SAT 95
[2017-10-03] MEDS: ASCORBIC ACID 500 MG TAB PO SCH ×2 (09:00→22:00)
[2017-10-03] MEDS: BUDESONIDE-FORMOTEROL 80/4.5 MCG INHALER INH SCH (09:00)
[2017-10-03] MEDS: SACUBITRIL/VALSARTAN 24 MG-26 MG TAB PO SCH ×2 (09:00→22:00)
[2017-10-03] MEDS: PRAVASTATIN SOD 40 MG TAB PO SCH ×2 (09:00→22:00)
[2017-10-03] MEDS: PANTOPRAZOLE SOD 40 MG DELAYED RELEASE TAB PO SCH (09:35)
[2017-10-03] MEDS: FUROSEMIDE 20 MG TAB PO SCH (09:35)
[2017-10-03] MEDS: METOPROLOL SUCCINATE 25 MG EXTENDED RELEASE TAB PO SCH (09:35)
[2017-10-03] MEDS: CLOPIDOGREL 75 MG TAB PO SCH (09:35)
[2017-10-03] MEDS: ASPIRIN 325 MG TAB PO SCH (09:36)
[2017-10-03] MEDS ORDERED: LORazepam 0.5 MG TAB PO PRN (11:30)
[2017-10-03] MEDS: ESCITALOPRAM OXALATE 10 MG TAB PO SCH (11:30)
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
--- NOTE | 2017-10-03 15:42 | PD.CONS ---
[facility] By [facility] Physician Semaj Heck MD Diagnoses: History of Present Illness Mr. Ibarra is a 77-year-old male. He is admitted to the psych am secondary to depression and suicidal ideation. Medical consult placed. Patient has a extensive cardiac disease and hypertension. Uncontrolled hypertension was present yesterday and is not seen as of this morning. No acute complaints and patient seen today. His blood pressure is under control based on latest blood pressure readings. He says as an outpatient he does not have good blood pressure control. Review of Systems Respiratory: DENIES: Cough, Wheezing, Shortness of breath Cardiovascular: DENIES: Chest pain, Palpitations, Syncope Psychiatric: COMPLAINS OF: Depression, DENIES: Anxiety, Confusion Past Family Social History Allergies: Coded Allergies: No Known Allergies (Verified Allergy, Unknown, 10/02/17) Past Medical History Hypertension Chronic kidney disease CHF Coronary artery disease [place] Past Surgical History CABG 3 Hernia repair Tonsillectomy Adenoidectomy Reported Medications Reported Meds & Active Scripts Active Escitalopram (Escitalopram Oxalate) 10 Mg Tab 10 Mg PO DAILY Sm Chewable C (Ascorbic Acid) 500 Mg Chw 250 Mg PO BID Metoprolol Succinate ER 24 HR (Metoprolol Succinate) 25 Mg Tab 25 Mg PO DAILY Plavix (Clopidogrel Bisulfate) 75 Mg Tab 75 Mg PO DAILY Symbicort Inh (Budesonide/Formoterol Fumarate) 80-4.5 Mcg/Act Aero 1 Puff INH Q12HR Pantoprazole (Pantoprazole Sodium) 40 Mg Tab 40 Mg PO DAILY [Albuterol-Ipratropium Neb] 1 AMPULE Nebu 1 Ampule INH Q6HR NEB Furosemide 20 Mg Tab 20 Mg PO DAILY Entresto (Sacubitril-Valsartan) 24-26 Mg Tab 1 Tab PO BID Aspirin 325 Mg Tab 325 Mg PO DAILY Reported Simvastatin 20 Mg Tab 20 Mg PO DAILY Active Ordered Medications Administered Medications Medications (Trade) Dose Ordered Sig/Gadiel Route PRN Reason Start Time Stop Time Status Last Admin Dose Admin Aspirin (Aspirin) 325 mg DAILY PO 10/03/17 09:00 10/03/17 09:36 Clopidogrel Bisulfate (Plavix) 75 mg DAILY PO 10/03/17 09:00 10/03/17 09:35 Furosemide (Lasix) 20 mg DAILY PO 10/03/17 09:00 10/03/17 09:35 Metoprolol Succinate (Toprol Xl) 25 mg DAILY PO 10/03/17 09:00 10/03/17 09:35 Pantoprazole Sodium (Protonix) 40 mg DAILY PO 10/03/17 09:00 10/03/17 09:35 Escitalopram Oxalate (Lexapro) 10 mg DAILY PO 10/03/17 11:30 10/03/17 11:30 Family History Coronary artery disease in brother CVA in mother Social History No smoking, patient has a distant history of smoking No alcohol abuse, patient is a distant history of alcohol abuse No illicit drug abuse Physical Exam Vital Signs Vital Signs Date Time Temp Pulse Resp B/P (MAP) Pulse Ox O2 Delivery O2 Flow Rate FiO2 10/03/17 06:19 98.1 55 16 111/57 (75) 95 10/03/17 01:30 98.2 62 16 184/98 (126) 94 Automatic Cuff 10/02/17 20:23 69 20 168/79 (108) 98 Room Air Physical Exam GENERAL: NAD, A&Ox3 HEAD: Normocephalic. NECK: Supple, trachea midline. No lymphadenopathy. EYES: No scleral icterus. No injection or drainage. CARDIOVASCULAR: Regular rate and rhythm without murmurs, gallops, or rubs. RESPIRATORY: Breath sounds equal bilaterally. No accessory muscle use. GASTROINTESTINAL: Abdomen soft, non-tender, nondistended. MUSCULOSKELETAL: No cyanosis, or edema. SKIN: Warm and dry. NEURO: No focal neurological deficitis. Result Diagram: 10/02/17 1445 10/02/17 1445 Assessment and Plan Problem List: (1) Hypertension ICD Code: I10 - Essential (primary) hypertension (2) Suicidal ideation ICD Code: R45.851 - Suicidal ideations (3) Depression ICD Code: F32.9 - Major depressive disorder, single episode, unspecified (4) CAD (coronary artery disease) ICD Code: I25.10 - Atherosclerotic heart disease of [place] coronary artery without angina pectoris Status: Chronic Assessment and Plan 77-year-old male admitted to psychiatry secondary to suicidal ideation and depression. Medical consult placed for medical management, patient had uncontrolled hypertension earlier. Hypertension Continue baseline treatments Follow blood pressures Begin an as needed clonidine Chronic kidney disease No acute concerns most recent blood work No need to follow further CHF Coronary artery disease [place] No chest pain reported Fluid balance is present Follow clinically DVT prophylaxis Patient is ambulatory Problem Qualifiers (1) Depression: Qualified Codes: F32.9 - Major depressive disorder, single episode, unspecified Kendrick Mitchell MD Oct 03, 2017 15:42
[2017-10-03] MEDS ORDERED: cloNIDine HCL 0.1 MG TAB PO PRN (15:45)
[2017-10-03 18:20] VITALS: BP 123/86; PULSE 61; RESP 20; TEMP 97.5; O2SAT 97
[2017-10-04] MEDS: RESP: ALBUTEROL 2.5 MG/IPRATROPIUM 0.5 MG NEB (SCH) NEB ×3 (04:00→22:00)
[2017-10-04] MEDS: BUDESONIDE-FORMOTEROL 80/4.5 MCG INHALER INH SCH ×3 (04:45→21:39)
[2017-10-04 06:15] VITALS: BP 117/58; PULSE 62; RESP 18; TEMP 97.6; O2SAT 97
[2017-10-04] MEDS ORDERED: CLON.1 PO (08:13)
[2017-10-04 08:26] VITALS: BP 123/80; PULSE 64
[2017-10-04 09:10] LABS: CHOLESTEROL 191 MG/DL (120-200); TRIGLYCERIDES 131 MG/DL (42-150)
[2017-10-04 09:13] LABS: CHOLESTEROL/ HDL RATIO 4.46 RATIO; HDL CHOLESTEROL 42.8 MG/DL (40.0-60.0); LDL CHOLESTEROL 122 MG/DL (0-99)
[2017-10-04] MEDS: CLOPIDOGREL 75 MG TAB PO SCH (09:50)
[2017-10-04] MEDS: METOPROLOL SUCCINATE 25 MG EXTENDED RELEASE TAB PO SCH (09:50)
[2017-10-04] MEDS: ASPIRIN 325 MG TAB PO SCH (09:50)
[2017-10-04] MEDS: FUROSEMIDE 20 MG TAB PO SCH (09:51)
[2017-10-04] MEDS: PANTOPRAZOLE SOD 40 MG DELAYED RELEASE TAB PO SCH (09:51)
[2017-10-04] MEDS: ESCITALOPRAM OXALATE 10 MG TAB PO SCH (09:51)
[2017-10-04] MEDS: ASCORBIC ACID 500 MG TAB PO SCH ×2 (09:51→21:39)
[2017-10-04] MEDS: SACUBITRIL/VALSARTAN 24 MG-26 MG TAB PO SCH ×2 (09:51→21:41)
[2017-10-04 12:45] LABS: HEMOGLOBIN A1C 6.2 % (4.3-6.0)
--- NOTE | 2017-10-04 18:25 | HHI.PYPN ---
Subjective Remarks Reviewed electronic medical record discussed case with staff. Follow-up performed in hallway with nurse present. Patient has been out ambulating in the hallways with his walker throughout the day. He reports that he feels "all right". Patient extremely chatty with this provider and staff. His mood seems good and his affect seems euthymic. He denies any complaints at this moment. Mental Status Examination Appearance: Appropriate Consciousness: Alert Orientation: x4 Motor Activity: Normal gait Speech: Unremarkable Language: Adequate Fund of Knowledge: Adequate Attention and Concentration: Adequate Memory: Unremarkable Mood: Good Affect: Euthymic Thought Process & Associations: Intact, Linear Thought Content: Appropriate Hallucination Type: None Delusion Type: None Suicidal Ideation: Yes (States he would not mind if he ) Suicidal Plan: No Suicidal Intention: Yes Homicidal Ideation: No Homicidal Plan: No Homicidal Intention: No Insight: Fair Judgment: Impulsive Results Labs Test 10/04/17 07:36 Hemoglobin A1c 6.2 % Triglycerides Level 131 MG/DL Cholesterol Level 191 MG/DL LDL Cholesterol 122 MG/DL HDL Cholesterol 42.8 MG/DL Cholesterol/HDL Ratio 4.46 RATIO Vitals/IOs Vital Signs Date Time Temp Pulse Resp B/P (MAP) Pulse Ox O2 Delivery O2 Flow Rate FiO2 10/04/17 08:26 64 123/80 (94) 10/04/17 06:15 97.6 18 97 10/02/17 20:23 Room Air Assessment & Plan Problem List: (1) Major depressive disorder, recurrent severe without psychotic features ICD Codes: F33.2 - Major depressive disorder, recurrent severe without psychotic features Assessment & Plan Estimated LOS: Will continue with current plan of treatment. Days Justification for Cont. Inpt. Moving this patient to a lower level of care would likely result in him decompensating. Pascale Mejias Oct 04, 2017 18:25
[2017-10-04 18:34] VITALS: BP 146/78; PULSE 64; RESP 18; TEMP 97.9; O2SAT 97
[2017-10-04] MEDS: PRAVASTATIN SOD 40 MG TAB PO SCH (21:39)
[2017-10-05] MEDS: RESP: ALBUTEROL 2.5 MG/IPRATROPIUM 0.5 MG NEB (SCH) NEB ×3 (04:24→17:20)
[2017-10-05 06:07] VITALS: BP 129/61; PULSE 69; RESP 16; TEMP 97.3; O2SAT 93
[2017-10-05] MEDS: PANTOPRAZOLE SOD 40 MG DELAYED RELEASE TAB PO SCH (09:32)
[2017-10-05] MEDS: ESCITALOPRAM OXALATE 10 MG TAB PO SCH (09:32)
[2017-10-05] MEDS: CLOPIDOGREL 75 MG TAB PO SCH (09:32)
[2017-10-05] MEDS: ASPIRIN 325 MG TAB PO SCH (09:32)
[2017-10-05] MEDS: SACUBITRIL/VALSARTAN 24 MG-26 MG TAB PO SCH ×2 (09:33→20:29)
[2017-10-05] MEDS: FUROSEMIDE 20 MG TAB PO SCH (09:33)
[2017-10-05] MEDS: ASCORBIC ACID 500 MG TAB PO SCH ×2 (09:33→20:29)
[2017-10-05] MEDS: BUDESONIDE-FORMOTEROL 80/4.5 MCG INHALER INH SCH ×2 (09:38→20:28)
[2017-10-05] MEDS: METOPROLOL SUCCINATE 25 MG EXTENDED RELEASE TAB PO SCH (09:59)
--- NOTE | 2017-10-05 16:08 | PD.TTN ---
Patient Problems 1. Discharge planning 2. Medication compliance 3. Knowledge deficit 4. Lack of coping skills Progress Toward Goals Provider Present: Dr. Jeannette Brooke Provider Input: 10/05/17 - Dr. Brooke reported that the patient is interested in placement at the [facility]. There is a long wait list for the [facility]. Presently the patient is staying with a friend and has home health care. A [place] social service agency director will need to assist the patient in filling out the thirty page application. Psychiatric Counselors Present: LAURIE Ojeda Psych Therapist Input: 10/05/17 - Counselor will direct the patient to his [place] [employer] Project Manager who may assist the patient with housing application. Group Spec/RT/OT/CRUZ Present: YULI Alamo Group Spec/RT/OT/CRUZ Input: 10/05/17 - Patient attends select group activities and is pleasant and cooperative. Discharge Plan 10/05/17 - Patient will follow-up at the [facility]. Documentation Scribe: LAURIE Ojeda Date Resolved: Oct 05, 2017 Susana Garcia Oct 05, 2017 16:08
--- NOTE | 2017-10-05 16:59 | HHI.PYPN ---
Subjective Remarks Patient seen for follow-up, chart reviewed. Discussion with nursing staff reported patient cooperative, pleasant, compliant with medications. Patient was found sitting on hospital bed, calm and cooperative. He states that he continues to feel the same, "not that good", continues to endorse not having any specific reason to live and just waiting to but denies any plan or intent on ending his life. He spends a great deal of time recanting his past experiences with pleasure and appears to enjoy talking about his past. He reports sleeping well, good appetite. Review of Systems Except as stated in HPI: all other systems reviewed are Neg Mental Status Examination Appearance: Appropriate Consciousness: Alert Orientation: x4 Motor Activity: Normal gait Speech: Unremarkable Language: Adequate Fund of Knowledge: Adequate Attention and Concentration: Adequate Memory: Unremarkable Mood: Good Affect: Euthymic Thought Process & Associations: Intact, Linear Thought Content: Appropriate Hallucination Type: None Delusion Type: None Suicidal Ideation: Yes (States he would not mind if he ) Suicidal Plan: No Suicidal Intention: No Homicidal Ideation: No Homicidal Plan: No Homicidal Intention: No Insight: Fair Judgment: Impulsive Results Vitals/IOs Vital Signs Date Time Temp Pulse Resp B/P (MAP) Pulse Ox O2 Delivery O2 Flow Rate FiO2 10/05/17 06:07 97.3 69 16 129/61 (83) 93 10/02/17 20:23 Room Air Intake and Output 10/05/17 10/05/17 10/06/17 08:00 16:00 00:00 Intake Total 240 ml Balance 240 ml Assessment & Plan Problem List: (1) Major depressive disorder, recurrent severe without psychotic features ICD Codes: F33.2 - Major depressive disorder, recurrent severe without psychotic features Assessment & Plan Patient continues to report feeling depressed, with thoughts of not wanting to be alive but denies any active suicidal ideations. Will increase escitalopram to 20mg PO daily, continue rest of medications. Continue to monitor mood and behavior. Discharge planning in progress. Justification for Cont. Inpt. At risk for further decompensation at lower level of care. Discharge Planning Back to friend's residence Vidal Brooke MD Oct 05, 2017 16:59
[2017-10-05 18:00] VITALS: BP 123/58; PULSE 70; RESP 18; TEMP 97.4; O2SAT 96
[2017-10-05] MEDS: PRAVASTATIN SOD 40 MG TAB PO SCH (20:29)
[2017-10-06] MEDS: RESP: ALBUTEROL 2.5 MG/IPRATROPIUM 0.5 MG NEB (SCH) NEB ×4 (03:35→22:50)
[2017-10-06 05:34] VITALS: BP 130/67; PULSE 61; RESP 16; TEMP 97.4; O2SAT 95
[2017-10-06] MEDS: BUDESONIDE-FORMOTEROL 80/4.5 MCG INHALER INH SCH ×2 (08:50→20:51)
[2017-10-06] MEDS: ESCITALOPRAM OXALATE 20 MG TAB PO SCH (08:51)
[2017-10-06] MEDS: FUROSEMIDE 20 MG TAB PO SCH (08:51)
[2017-10-06] MEDS: ASPIRIN 325 MG TAB PO SCH (08:51)
[2017-10-06] MEDS: METOPROLOL SUCCINATE 25 MG EXTENDED RELEASE TAB PO SCH (08:51)
[2017-10-06] MEDS: CLOPIDOGREL 75 MG TAB PO SCH (08:51)
[2017-10-06] MEDS: PANTOPRAZOLE SOD 40 MG DELAYED RELEASE TAB PO SCH (08:51)
[2017-10-06] MEDS: ASCORBIC ACID 500 MG TAB PO SCH ×2 (08:51→20:49)
[2017-10-06] MEDS: SACUBITRIL/VALSARTAN 24 MG-26 MG TAB PO SCH ×2 (09:00→21:00)
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
[2017-10-06 17:56] VITALS: BP 118/73; PULSE 65; RESP 18; O2SAT 98
[2017-10-06] MEDS: diphenhydrAMINE HCL 50 MG CAP PO PRN (20:48)
[2017-10-06] MEDS: PRAVASTATIN SOD 40 MG TAB PO SCH (21:00)
[2017-10-06 23:17] VITALS: O2SAT 97
[2017-10-07 04:56] VITALS: BP 95/59; PULSE 65; RESP 17; TEMP 97.4; O2SAT 97
[2017-10-07] MEDS: ASPIRIN 325 MG TAB PO SCH (08:30)
[2017-10-07] MEDS: PANTOPRAZOLE SOD 40 MG DELAYED RELEASE TAB PO SCH (08:30)
[2017-10-07] MEDS: METOPROLOL SUCCINATE 25 MG EXTENDED RELEASE TAB PO SCH (08:30)
[2017-10-07] MEDS: BUDESONIDE-FORMOTEROL 80/4.5 MCG INHALER INH SCH ×2 (08:30→21:02)
[2017-10-07] MEDS: ASCORBIC ACID 500 MG TAB PO SCH ×2 (08:31→21:02)
[2017-10-07] MEDS: FUROSEMIDE 20 MG TAB PO SCH (08:31)
[2017-10-07] MEDS: ESCITALOPRAM OXALATE 20 MG TAB PO SCH (08:31)
[2017-10-07] MEDS: CLOPIDOGREL 75 MG TAB PO SCH (08:31)
[2017-10-07] MEDS: SACUBITRIL/VALSARTAN 24 MG-26 MG TAB PO SCH ×2 (08:32→21:02)
--- NOTE | 2017-10-07 11:17 | PD.TTN ---
Patient Problems 1. Discharge planning 2. Medication compliance 3. Knowledge deficit 4. Lack of coping skills Progress Toward Goals Provider Present: Dr. Jeannette Brooke Provider Input: 10/07/2017; patient's medication is being adjusted 10/05/17 - Dr. Brooke reported that the patient is interested in placement at the [facility]. There is a long wait list for the [facility]. Presently the patient is staying with a friend and has home health care. A [place] bending shed worker will need to assist the patient in filling out the thirty page application. Nurse(s) Present: ROC Nelson Nurse(s) Input: 10/07/2017; patient is eating and taking his medication, requires redirection with behavior Psychiatric Counselors Present: GREG Flores, LAURIE Ojeda Psych Therapist Input: 10/07/2017; counselor call Brian, fitting room supervisor; please refer to note charted 10/05/17 - Counselor will direct the patient to his [place] Pulp Press Tender who may assist the patient with housing application. Group Spec/RT/OT/CRUZ Present: YULI Alamo Group Spec/RT/OT/CRUZ Input: 10/07/2017; patient attends groups with appropriate behavior 10/05/17 - Patient attends select group activities and is pleasant and cooperative. Discharge Plan 10/05/17 - Patient will follow-up at the [place]. Documentation Scribe: Claudia Smart Date Resolved: Oct 05, 2017 Claudia Smart Oct 07, 2017 11:17
[2017-10-07 18:19] VITALS: BP 106/58; PULSE 64; RESP 18; TEMP 98.1; O2SAT 98
[2017-10-07] MEDS: diphenhydrAMINE HCL 50 MG CAP PO PRN (21:02)
[2017-10-07] MEDS: PRAVASTATIN SOD 40 MG TAB PO SCH (21:02)
[2017-10-08 05:55] VITALS: BP 124/83; PULSE 62; RESP 16; TEMP 98; O2SAT 93
[2017-10-08] MEDS: PANTOPRAZOLE SOD 40 MG DELAYED RELEASE TAB PO SCH (08:48)
[2017-10-08] MEDS: SACUBITRIL/VALSARTAN 24 MG-26 MG TAB PO SCH ×2 (08:48→20:50)
[2017-10-08] MEDS: ASCORBIC ACID 500 MG TAB PO SCH ×2 (08:48→20:52)
[2017-10-08] MEDS: ESCITALOPRAM OXALATE 20 MG TAB PO SCH (08:48)
[2017-10-08] MEDS: ASPIRIN 325 MG TAB PO SCH (08:48)
[2017-10-08] MEDS: BUDESONIDE-FORMOTEROL 80/4.5 MCG INHALER INH SCH ×2 (08:48→20:50)
[2017-10-08] MEDS: FUROSEMIDE 20 MG TAB PO SCH (08:48)
[2017-10-08] MEDS: METOPROLOL SUCCINATE 25 MG EXTENDED RELEASE TAB PO SCH (08:49)
[2017-10-08] MEDS: CLOPIDOGREL 75 MG TAB PO SCH (08:49)
[2017-10-08] MEDS: buPROPion HCL 150 MG SUSTAINED RELEASE TAB PO SCH (10:00)
[2017-10-08] MEDS: RESP: ALBUTEROL 2.5 MG/IPRATROPIUM 0.5 MG NEB (SCH) NEB ×2 (13:09→19:40)
--- NOTE | 2017-10-08 16:36 | HHI.PYPN ---
Subjective Remarks LATE ENTRY FOR 10/07/17 Patient seen for follow up; chart reviewed. Discussion with nursing staff reported that the patient seclusive, compliant with medications. Patient found sitting on hospital bed, noted to be dysphoric, states having had poor sleep last night because of the noise on the unit last night. He continues to appear dysphoric, feeling upset due to seeing another patient given ETO, stating not caring what happens to him. Review of Systems Except as stated in HPI: all other systems reviewed are Neg Mental Status Examination Appearance: Appropriate Consciousness: Alert Orientation: x4 Motor Activity: Normal gait Speech: Unremarkable Language: Adequate Fund of Knowledge: Adequate Attention and Concentration: Adequate Memory: Unremarkable Mood: Sad Affect: Sad Thought Process & Associations: Intact, Linear Thought Content: Appropriate Hallucination Type: None Delusion Type: None Suicidal Ideation: Yes (States he would not mind if he ) Suicidal Plan: No Suicidal Intention: No Homicidal Ideation: No Homicidal Plan: No Homicidal Intention: No Insight: Fair Judgment: Impulsive Results Vitals/IOs Vital Signs Date Time Temp Pulse Resp B/P (MAP) Pulse Ox O2 Delivery O2 Flow Rate FiO2 10/08/17 05:55 98.0 62 16 124/83 (97) 93 Intake and Output 10/08/17 10/08/17 10/09/17 08:00 16:00 00:00 Intake Total 0 ml Balance 0 ml Assessment & Plan Problem List: (1) Major depressive disorder, recurrent severe without psychotic features ICD Codes: F33.2 - Major depressive disorder, recurrent severe without psychotic features Assessment & Plan Patient continues to be dysphoric, anhedonic, hopeless with continued depressed mood. Increase escilatopram to 20mg PO daily for depression, continue rest of medications. Continue to monitor mood and behavior. Discharge planning in progress. Justification for Cont. Inpt. At risk for further decompensation at lower level of care. Vidal Brooke MD Oct 08, 2017 16:36
--- NOTE | 2017-10-08 16:41 | HHI.PYPN ---
Subjective Remarks Patient seen for follow up; chart reviewed. Discussion with nursing staff reported patient eating less, continues to be depressed. Patient found sitting on hospital bed, calm and cooperative. Patient states that having attended group yesterday, concerned of not having received his respiratory treatments. 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 He continues to endorse not caring what happens to him and waiting to . Review of Systems Except as stated in HPI: all other systems reviewed are Neg Mental Status Examination Appearance: Appropriate Consciousness: Alert Orientation: x4 Motor Activity: Normal gait Speech: Unremarkable Language: Adequate Fund of Knowledge: Adequate Attention and Concentration: Adequate Memory: Unremarkable Mood: Sad Affect: Sad Thought Process & Associations: Intact, Linear Thought Content: Appropriate Hallucination Type: None Delusion Type: None Suicidal Ideation: Yes (States he would not mind if he ) Suicidal Plan: No Suicidal Intention: No Homicidal Ideation: No Homicidal Plan: No Homicidal Intention: No Insight: Fair Judgment: Impulsive Results Vitals/IOs Vital Signs Date Time Temp Pulse Resp B/P (MAP) Pulse Ox O2 Delivery O2 Flow Rate FiO2 10/08/17 05:55 98.0 62 16 124/83 (97) 93 Intake and Output 10/08/17 10/08/17 10/09/17 08:00 16:00 00:00 Intake Total 0 ml Balance 0 ml Assessment & Plan Problem List: (1) Major depressive disorder, recurrent severe without psychotic features ICD Codes: F33.2 - Major depressive disorder, recurrent severe without psychotic features Assessment & Plan Patient continues with poor appetite and PO intake, continues dysphoric and depressed. Will start wellbutrin SR 150mg PO daily, continue rest of medications. Request dietitian consult for poor PO intake. Continue to encourage patient to participate in groups and activities. Brief supportive psychotherapy provided. Discharge planning in progress. Justification for Cont. Inpt. At risk for further decompensation at lower level of care. Vidal Brooke MD Oct 08, 2017 16:41
[2017-10-08 17:03] VITALS: BP 145/81; PULSE 66; RESP 17; TEMP 97.8; O2SAT 95
[2017-10-08 19:40] VITALS: O2SAT 97
[2017-10-08] MEDS: PRAVASTATIN SOD 40 MG TAB PO SCH (20:51)
[2017-10-08] MEDS: diphenhydrAMINE HCL 50 MG CAP PO PRN (21:41)
[2017-10-09 05:28] VITALS: BP 127/78; PULSE 58; RESP 16; TEMP 98.1; O2SAT 95
[2017-10-09] MEDS: ASCORBIC ACID 500 MG TAB PO SCH ×2 (08:27→20:29)
[2017-10-09] MEDS: BUDESONIDE-FORMOTEROL 80/4.5 MCG INHALER INH SCH ×2 (08:27→20:29)
[2017-10-09] MEDS: ASPIRIN 325 MG TAB PO SCH (08:27)
[2017-10-09] MEDS: PANTOPRAZOLE SOD 40 MG DELAYED RELEASE TAB PO SCH (08:27)
[2017-10-09] MEDS: ESCITALOPRAM OXALATE 20 MG TAB PO SCH (08:27)
[2017-10-09] MEDS: SACUBITRIL/VALSARTAN 24 MG-26 MG TAB PO SCH ×2 (08:27→20:29)
[2017-10-09] MEDS: FUROSEMIDE 20 MG TAB PO SCH (08:27)
[2017-10-09] MEDS: CLOPIDOGREL 75 MG TAB PO SCH (08:27)
[2017-10-09] MEDS: METOPROLOL SUCCINATE 25 MG EXTENDED RELEASE TAB PO SCH (08:27)
[2017-10-09] MEDS: buPROPion HCL 150 MG SUSTAINED RELEASE TAB PO SCH (08:27)
[2017-10-09 09:35] VITALS: O2SAT 96
[2017-10-09] MEDS: RESP: ALBUTEROL 2.5 MG/IPRATROPIUM 0.5 MG NEB (SCH) NEB ×3 (09:35→21:07)
[2017-10-09 17:15] VITALS: BP 95/52; PULSE 62; RESP 16; TEMP 97.8; O2SAT 96
--- NOTE | 2017-10-09 17:46 | HHI.PYPN ---
Subjective Remarks Patient seen for follow up; chart reviewed. Discussion with nursing staff reported that the patient was noted to have some improvement in mood today, eating breakfast today. Patient was found ambulating in the hallways, states sleeping better last evening, attended a group today. He states that his appetite is a little better today and mood has been "comes and goes" referring to feeling depressed. He states feeling "a little better" today but with intermittent thoughts of not wanting to be alive. He states hoping to feel better soon. Review of Systems Except as stated in HPI: all other systems reviewed are Neg Mental Status Examination Appearance: Appropriate Consciousness: Alert Orientation: x4 Motor Activity: Normal gait Speech: Unremarkable Language: Adequate Fund of Knowledge: Adequate Attention and Concentration: Adequate Memory: Unremarkable Mood: Sad (less today) Affect: Sad (less today) Thought Process & Associations: Intact, Linear Thought Content: Appropriate Hallucination Type: None Delusion Type: None Suicidal Ideation: Yes (intermittent) Suicidal Plan: No Suicidal Intention: No Homicidal Ideation: No Homicidal Plan: No Homicidal Intention: No Insight: Fair Judgment: Impulsive Results Vitals/IOs Vital Signs Date Time Temp Pulse Resp B/P (MAP) Pulse Ox O2 Delivery O2 Flow Rate FiO2 10/09/17 17:15 97.8 62 16 95/52 (66) 96 10/08/17 19:40 21 Intake and Output 10/09/17 10/09/17 10/10/17 08:00 16:00 00:00 Intake Total 120 ml 480 ml 1080 ml Balance 120 ml 480 ml 1080 ml Assessment & Plan Problem List: (1) Major depressive disorder, recurrent severe without psychotic features ICD Codes: F33.2 - Major depressive disorder, recurrent severe without psychotic features Assessment & Plan Patient continues to feel depressed but was noted to have better mood today and starting to eat more. Will continue current treatment, continue rest of medications. Continue to monitor mood and behavior. Discharge planning in progress. Justification for Cont. Inpt. At risk of further decompensation at lower level of care. Vidal Brooke MD Oct 09, 2017 17:46
[2017-10-09] MEDS: PRAVASTATIN SOD 40 MG TAB PO SCH (20:29)
[2017-10-09] MEDS: diphenhydrAMINE HCL 50 MG CAP PO PRN (22:07)
[2017-10-10 05:43] VITALS: BP 116/82; PULSE 65; RESP 16; TEMP 97.7; O2SAT 95
[2017-10-10] MEDS: RESP: ALBUTEROL 2.5 MG/IPRATROPIUM 0.5 MG NEB (SCH) NEB ×3 (08:00→21:25)
[2017-10-10] MEDS: CLOPIDOGREL 75 MG TAB PO SCH (09:15)
[2017-10-10] MEDS: FUROSEMIDE 20 MG TAB PO SCH (09:15)
[2017-10-10] MEDS: ASCORBIC ACID 500 MG TAB PO SCH ×2 (09:15→20:25)
[2017-10-10] MEDS: SACUBITRIL/VALSARTAN 24 MG-26 MG TAB PO SCH ×2 (09:15→20:25)
[2017-10-10] MEDS: METOPROLOL SUCCINATE 25 MG EXTENDED RELEASE TAB PO SCH (09:16)
[2017-10-10] MEDS: ASPIRIN 325 MG TAB PO SCH (09:16)
[2017-10-10] MEDS: buPROPion HCL 150 MG SUSTAINED RELEASE TAB PO SCH (09:16)
[2017-10-10] MEDS: PANTOPRAZOLE SOD 40 MG DELAYED RELEASE TAB PO SCH (09:16)
[2017-10-10] MEDS: BUDESONIDE-FORMOTEROL 80/4.5 MCG INHALER INH SCH ×2 (09:16→20:25)
[2017-10-10] MEDS: ESCITALOPRAM OXALATE 20 MG TAB PO SCH (09:16)
[2017-10-10 10:02] VITALS: O2SAT 96
--- NOTE | 2017-10-10 15:30 | HHI.PYPN ---
Subjective Remarks Patient was seen and case discussed with nursing. Patient remains depressed. He is minimally engaged, flat, poor eye contact. Says he has fleeting suicidal ideation without intent or plan. Nursing is not noticed any crying or labile behavior. Her appetite has improved Mental Status Examination Appearance: Appropriate Consciousness: Alert Orientation: x4 Motor Activity: Normal gait Speech: Unremarkable Language: Adequate Fund of Knowledge: Adequate Attention and Concentration: Adequate Memory: Unremarkable Mood: Sad (less today) Affect: Sad (less today) Thought Process & Associations: Intact, Linear Thought Content: Appropriate Hallucination Type: None Delusion Type: None Suicidal Ideation: Yes (intermittent) Suicidal Plan: No Suicidal Intention: No Homicidal Ideation: No Homicidal Plan: No Homicidal Intention: No Insight: Fair Judgment: Impulsive Results Vitals/IOs Vital Signs Date Time Temp Pulse Resp B/P (MAP) Pulse Ox O2 Delivery O2 Flow Rate FiO2 10/10/17 10:02 96 21 10/10/17 05:43 97.7 65 16 116/82 (93) Intake and Output 10/10/17 10/10/17 10/11/17 08:00 16:00 00:00 Intake Total 600 ml 240 ml Balance 600 ml 240 ml Assessment & Plan Problem List: (1) Major depressive disorder, recurrent severe without psychotic features ICD Codes: F33.2 - Major depressive disorder, recurrent severe without psychotic features Assessment & Plan Continue current treatment plan Justification for Cont. Inpt. Patient would decompensate in a less restrictive setting Pritesh Black DO Oct 10, 2017 15:30
[2017-10-10 17:29] VITALS: BP 126/58; PULSE 56; RESP 17; TEMP 97.9; O2SAT 97
[2017-10-10] MEDS: diphenhydrAMINE HCL 50 MG CAP PO PRN (20:25)
[2017-10-10] MEDS: PRAVASTATIN SOD 40 MG TAB PO SCH (20:25)
[2017-10-10 21:25] VITALS: O2SAT 96
[2017-10-11 05:45] VITALS: BP 149/74; PULSE 55; RESP 16; TEMP 97.2; O2SAT 95
[2017-10-11] MEDS: RESP: ALBUTEROL 2.5 MG/IPRATROPIUM 0.5 MG NEB (SCH) NEB ×3 (07:20→20:00)
[2017-10-11] MEDS: ASCORBIC ACID 500 MG TAB PO SCH ×2 (08:54→20:29)
[2017-10-11] MEDS: PANTOPRAZOLE SOD 40 MG DELAYED RELEASE TAB PO SCH (08:54)
[2017-10-11] MEDS: ASPIRIN 325 MG TAB PO SCH (08:54)
[2017-10-11] MEDS: buPROPion HCL 150 MG SUSTAINED RELEASE TAB PO SCH (08:54)
[2017-10-11] MEDS: FUROSEMIDE 20 MG TAB PO SCH (08:55)
[2017-10-11] MEDS: ESCITALOPRAM OXALATE 20 MG TAB PO SCH (08:56)
[2017-10-11] MEDS: BUDESONIDE-FORMOTEROL 80/4.5 MCG INHALER INH SCH ×2 (08:56→20:29)
[2017-10-11] MEDS: CLOPIDOGREL 75 MG TAB PO SCH (08:56)
[2017-10-11] MEDS: METOPROLOL SUCCINATE 25 MG EXTENDED RELEASE TAB PO SCH (08:56)
[2017-10-11] MEDS: SACUBITRIL/VALSARTAN 24 MG-26 MG TAB PO SCH ×2 (08:56→20:29)
--- NOTE | 2017-10-11 14:42 | HHI.PYPN ---
Subjective Remarks Patient was seen and case discussed with nursing. Patient remains withdrawn and seclusive to self. Affect is blunted. He has fleeting suicidal ideation without intent or plan. He is compliant with medications and behaving well on the unit. Patient is concerned he has been getting the wrong diet. He says should he should be on a cardiac diabetes been getting vargas and cheese Mental Status Examination Appearance: Appropriate Consciousness: Alert Orientation: x4 Motor Activity: Normal gait Speech: Unremarkable Language: Adequate Fund of Knowledge: Adequate Attention and Concentration: Adequate Memory: Unremarkable Mood: Sad (less today) Affect: Sad (less today) Thought Process & Associations: Intact, Linear Thought Content: Appropriate Hallucination Type: None Delusion Type: None Suicidal Ideation: Yes (intermittent) Suicidal Plan: No Suicidal Intention: No Homicidal Ideation: No Homicidal Plan: No Homicidal Intention: No Insight: Fair Judgment: Impulsive Results Vitals/IOs Vital Signs Date Time Temp Pulse Resp B/P (MAP) Pulse Ox O2 Delivery O2 Flow Rate FiO2 10/11/17 05:45 97.2 55 16 149/74 (99) 95 10/10/17 21:25 21 Intake and Output 10/11/17 10/11/17 10/12/17 08:00 16:00 00:00 Intake Total 0 ml Balance 0 ml Assessment & Plan Problem List: (1) Major depressive disorder, recurrent severe without psychotic features ICD Codes: F33.2 - Major depressive disorder, recurrent severe without psychotic features Assessment & Plan Continue current treatment plan. Change the cardiac diet Justification for Cont. Inpt. Patient would decompensate in a less restrictive setting Pritesh Black DO Oct 11, 2017 14:41
[2017-10-11 17:17] VITALS: BP 124/59; PULSE 59; RESP 16; TEMP 98.2; O2SAT 96
[2017-10-11] MEDS: PRAVASTATIN SOD 40 MG TAB PO SCH (20:29)
[2017-10-11] MEDS: diphenhydrAMINE HCL 50 MG CAP PO PRN (20:29)
[2017-10-12 06:14] VITALS: BP 112/66; PULSE 64; RESP 14; TEMP 96.8; O2SAT 95
[2017-10-12] MEDS: RESP: ALBUTEROL 2.5 MG/IPRATROPIUM 0.5 MG NEB (SCH) NEB ×2 (08:26→12:11)
[2017-10-12] MEDS: SACUBITRIL/VALSARTAN 24 MG-26 MG TAB PO SCH (09:15)
[2017-10-12] MEDS: METOPROLOL SUCCINATE 25 MG EXTENDED RELEASE TAB PO SCH (09:15)
[2017-10-12] MEDS: ASPIRIN 325 MG TAB PO SCH (09:15)
[2017-10-12] MEDS: PANTOPRAZOLE SOD 40 MG DELAYED RELEASE TAB PO SCH (09:15)
[2017-10-12] MEDS: ESCITALOPRAM OXALATE 20 MG TAB PO SCH (09:15)
[2017-10-12] MEDS: CLOPIDOGREL 75 MG TAB PO SCH (09:16)
[2017-10-12] MEDS: FUROSEMIDE 20 MG TAB PO SCH (09:16)
[2017-10-12] MEDS: buPROPion HCL 150 MG SUSTAINED RELEASE TAB PO SCH (09:17)
[2017-10-12] MEDS: ASCORBIC ACID 500 MG TAB PO SCH (09:17)
[2017-10-12] MEDS: BUDESONIDE-FORMOTEROL 80/4.5 MCG INHALER INH SCH (09:17)
[2017-10-12] MEDS ORDERED: BUPR150CR PO (12:15)
[2017-10-12] MEDS ORDERED: ESCI20TA PO (12:15)
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
--- NOTE | 2017-10-13 13:13 | PD.TTN ---
Patient Problems 1. Discharge planning 2. Medication compliance 3. Knowledge deficit 4. Lack of coping skills Progress Toward Goals Provider Present: Dr. Jeannette Brooke Provider Input: 10/12/17 patient is ready for aniticipated discharge home today 10/07/2017; patient's medication is being adjusted 10/05/17 - Dr. Brooke reported that the patient is interested in placement at the [facility]. There is a long wait list for the [facility]. Presently the patient is staying with a friend and has home health care. A [place] social insurance adviser will need to assist the patient in filling out the thirty page application. Nurse(s) Present: ROC Nelson Nurse(s) Input: 10/12/17 he is med compliant and out in milieu and likes to talk, appears lonely 10/07/2017; patient is eating and taking his medication, requires redirection with behavior Psychiatric Counselors Present: Faye Mclean LCSW, Claudia Smart, [facility], Susana Garcia, [facility] Psych Therapist Input: 10/12/17patient is cooperative and shares he feels old and accepted that his time may come and appears to struggle with his medical issues and his worth in life at this time, he is recommended to go to [facility] and has been offered with [place] [employer] and [facility] 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 Group Spec/RT/OT/CRUZ Present: YULI Alamo Group Spec/RT/OT/CRUZ Input: 10/12/17 pt attends select groups when encouraged 10/07/2017; patient attends groups with appropriate behavior 10/05/17 - Patient attends select group activities and is pleasant and cooperative. Discharge Plan 10/05/17 - Patient will follow-up at the [place]. Documentation Scribe: Claudia Smart Date Resolved: Oct 05, 2017 Faye Mclean LCSW Oct 13, 2017 13:13
== END 2017-10-12 14:25 | disposition home or self-care (01) | DRG 885 ==
LOC: NEPD 11:55 → NEDA 10-03 00:22 → H260 10-03 01:10 → H250 10-05 12:20
PROVIDERS: ADMIT Student in an Organized Health Care Education/Training Program; ATTEND Student in an Organized Health Care Education/Training Program
DX: F33.2 Major depressive disorder, recurrent severe without psychotic features (principal); I13.0 Hypertensive heart and chronic kidney disease with heart failure and stage 1 through stage 4 chronic kidney disease, or unspecified chronic kidney disease; N18.9 Chronic kidney disease, unspecified; I50.9 Heart failure, unspecified; J44.9 Chronic obstructive pulmonary disease, unspecified; I25.10 Atherosclerotic heart disease of native coronary artery without angina pectoris; I25.2 Old myocardial infarction; Z95.1 Presence of aortocoronary bypass graft; Z95.5 Presence of coronary angioplasty implant and graft; Z79.02 Long term (current) use of antithrombotics/antiplatelets; Z87.891 Personal history of nicotine dependence
CPT/HCPCS: 80053; 80061; 80307; 83036; 84443; 85025; 94640; 94664; 99285; Q0163